=== PATIENT | male | born 1965 | race Caucasian/White ===

== ENCOUNTER 2021-01-24 06:56 | Outpatient (REF) | payer BC, SELFPAY ==
[2021-01-24 11:14] LABS: MANUAL DIFF FLAG NO
[2021-01-24 11:30] LABS: Basophils Percent Auto 0.5 % (0-2); Eosinophils Percent Auto 1.1 % (0-4); Hematocrit 40.9 % (42-52); Hemoglobin 13.8 g/dl (14.0-18.0); Imm Gran Abs Auto 0.01 X10*3/uL (0.00-0.03); Imm Gran Pct Auto 0.3 % (0.0-0.4); Lymphocytes Absolute Auto 0.9 X10*3/uL (1.2-4.9); Lymphocytes Percent Auto 23.2 % (20-40); Mean Corpuscular HGB Conc 33.7 g/dl (31.0-36.0); Mean Corpuscular Hemoglobin 33.3 pg (27.0-33.0); Mean Corpuscular Volume 98.8 fL (80-98); Mean Platelet Volume 10.3 fL (9.4-12.4); Monocytes Absolute Auto 0.3 X10*3/uL (0.1-1.2); Monocytes Percent Auto 8.4 % (2-11); Neutrophils Absolute Auto 2.5 X10*3/uL (2.0-8.3); Neutrophils Percent Auto 66.5 % (45-73); Platelet Count 200 X10*3/uL (160-400); Red Blood Count 4.14 X10*6/uL (4.60-5.80); Red Cell Distribution Width 12.9 % (11.0-16.0); White Blood Count 3.7 X10*3/uL (4.8-10.8)
[2021-01-24 11:57] LABS: Alanine Aminotransferase 20 U/L (0-40); Albumin Level 4.1 g/dL (3.5-5.0); Alkaline Phosphatase 74 U/L (39-117); Anion Gap 11 (12-20); Aspartate Amino Transferase 21 U/L (5-37); Bilirubin Total 0.5 mg/dL (0.0-1.0); Blood Urea Nitrogen 19 mg/dL (9-16); Calcium 9.1 mg/dL (8.4-10.2); Carbon Dioxide 28 mmol/L (22-29); Chloride 106 mmol/L (96-108); Cholesterol 204 mg/dL; Estimated Glomerular Filt Rate 59; Glucose Fasting 83 mg/dL (60-99); HDL Cholesterol 39 mg/dL; LDL Cholesterol Calculated 126 mg/dl; Potassium 4.6 mmol/L (3.3-5.1); Sodium 140 mmol/L (135-145); Total Protein 6.9 g/dL (6.5-8.0); Triglycerides 197 mg/dL
[2021-01-24 12:04] LABS: Prostate Specific Antigen Scr 0.44 ng/mL (<0.05-4.0); TSH reflex Free T4 1.39 uIU/mL (0.32-4.0)
== END 2021-01-24 06:57 | disposition home or self-care (01) ==
LOC: HO.HMGCLDS 06:56
PROVIDERS: Hospitalist; PCP Nurse Practitioner Family; Visit Provider Nurse Practitioner Family
DX: Z00.00 Encounter for general adult medical examination without abnormal findings (principal); I10 Essential (primary) hypertension; Z12.5 Encounter for screening for malignant neoplasm of prostate
CPT/HCPCS: 36415; 80053; 80061; 84153; 84443; 85025

== ENCOUNTER 2021-03-21 | Outpatient (REF) | payer BC, SELFPAY ==
[2021-03-22 12:43] LABS: FIT Int Ctl YES; FIT1 NEGATIVE (NEGATIVE); FIT2 NEGATIVE (NEGATIVE)
== END 2021-03-21 00:01 | disposition home or self-care (01) ==
LOC: HO.LNP
PROVIDERS: Visit Provider Nurse Practitioner Family
DX: D64.9 Anemia, unspecified (principal)
CPT/HCPCS: 82274

== ENCOUNTER 2021-03-22 06:58 | Outpatient (REF) | payer BC, SELFPAY ==
[2021-03-22 11:40] LABS: MANUAL DIFF FLAG NO
[2021-03-22 11:58] LABS: Alanine Aminotransferase 20 U/L (0-40); Albumin Level 4.3 g/dL (3.5-5.0); Alkaline Phosphatase 76 U/L (39-117); Anion Gap 12 (12-20); Aspartate Amino Transferase 21 U/L (5-37); Basophils Percent Auto 0.3 % (0-2); Bilirubin Total 0.5 mg/dL (0.0-1.0); Blood Urea Nitrogen 16 mg/dL (9-16); Calcium 9.5 mg/dL (8.4-10.2); Carbon Dioxide 29 mmol/L (22-29); Chloride 104 mmol/L (96-108); Cholesterol 194 mg/dL; Eosinophils Percent Auto 1.2 % (0-4); Estimated Glomerular Filt Rate 56; Glucose Fasting 128 mg/dL (60-99); HDL Cholesterol 35 mg/dL; Hematocrit 43.3 % (42-52); Hemoglobin 14.6 g/dl (14.0-18.0); Imm Gran Abs Auto 0.01 X10*3/uL (0.00-0.03); Imm Gran Pct Auto 0.3 % (0.0-0.4); LDL Cholesterol Calculated 114 mg/dl; Lymphocytes Absolute Auto 0.9 X10*3/uL (1.2-4.9); Lymphocytes Percent Auto 26.9 % (20-40); Mean Corpuscular HGB Conc 33.7 g/dl (31.0-36.0); Mean Corpuscular Hemoglobin 33.3 pg (27.0-33.0); Mean Corpuscular Volume 98.6 fL (80-98); Mean Platelet Volume 10.4 fL (9.4-12.4); Monocytes Absolute Auto 0.2 X10*3/uL (0.1-1.2); Monocytes Percent Auto 6.4 % (2-11); Neutrophils Absolute Auto 2.1 X10*3/uL (2.0-8.3); Neutrophils Percent Auto 64.9 % (45-73); Platelet Count 209 X10*3/uL (160-400); Potassium 4.5 mmol/L (3.3-5.1); Red Blood Count 4.39 X10*6/uL (4.60-5.80); Red Cell Distribution Width 12.7 % (11.0-16.0); Sodium 140 mmol/L (135-145); Total Protein 7.3 g/dL (6.5-8.0); Triglycerides 226 mg/dL; White Blood Count 3.3 X10*3/uL (4.8-10.8)
[2021-03-22 12:22] LABS: Ferritin 131 ng/mL (20-250)
[2021-03-22 12:27] LABS: Folate 4.8 ng/mL (> or = 4.0); Vitamin B12 325 pg/mL (200-900)
== END 2021-03-22 06:59 | disposition home or self-care (01) ==
LOC: HO.HMGCLDS 06:58
PROVIDERS: PCP Nurse Practitioner Family; Visit Provider Hospitalist
DX: D64.9 Anemia, unspecified (principal); I10 Essential (primary) hypertension
CPT/HCPCS: 36415; 80053; 80061; 82274; 82607; 82728; 82746; 85025

== ENCOUNTER 2021-04-08 09:48 | Outpatient (REF) | payer BC, SELFPAY ==
[2021-04-08 11:31] LABS: MANUAL DIFF FLAG NO
[2021-04-08 11:36] LABS: Basophils Percent Auto 0.6 % (0-2); Eosinophils Absolute Auto 0.1 X10*3/uL (0.0-0.4); Eosinophils Percent Auto 1.9 % (0-4); Hematocrit 40.4 % (42-52); Hemoglobin 13.8 g/dl (14.0-18.0); Imm Gran Abs Auto 0.01 X10*3/uL (0.00-0.03); Imm Gran Pct Auto 0.3 % (0.0-0.4); Lymphocytes Absolute Auto 1.2 X10*3/uL (1.2-4.9); Lymphocytes Percent Auto 32.8 % (20-40); Mean Corpuscular HGB Conc 34.2 g/dl (31.0-36.0); Mean Corpuscular Hemoglobin 33.2 pg (27.0-33.0); Mean Corpuscular Volume 97.1 fL (80-98); Mean Platelet Volume 10.3 fL (9.4-12.4); Monocytes Absolute Auto 0.3 X10*3/uL (0.1-1.2); Monocytes Percent Auto 8.3 % (2-11); Neutrophils Percent Auto 56.1 % (45-73); Platelet Count 226 X10*3/uL (160-400); Red Blood Count 4.16 X10*6/uL (4.60-5.80); Red Cell Distribution Width 12.4 % (11.0-16.0); White Blood Count 3.6 X10*3/uL (4.8-10.8)
[2021-04-08 12:11] LABS: Prostate Specific Antigen Scr 0.39 ng/mL (<0.05-4.0)
== END 2021-04-08 09:49 | disposition home or self-care (01) ==
LOC: HO.HMGCLDS 09:48
PROVIDERS: PCP Nurse Practitioner Family; Visit Provider Nurse Practitioner Family
DX: Z12.5 Encounter for screening for malignant neoplasm of prostate (principal); D72.819 Decreased white blood cell count, unspecified
CPT/HCPCS: 36415; 84153; 85025

== ENCOUNTER 2021-04-12 06:59 | Outpatient (REF) | payer BC, SELFPAY ==
[2021-04-12 11:25] LABS: MANUAL DIFF FLAG NO
[2021-04-12 11:31] LABS: Basophils Percent Auto 0.2 % (0-2); Eosinophils Absolute Auto 0.1 X10*3/uL (0.0-0.4); Hematocrit 40.9 % (42-52); Hemoglobin 13.8 g/dl (14.0-18.0); Imm Gran Abs Auto 0.01 X10*3/uL (0.00-0.03); Imm Gran Pct Auto 0.2 % (0.0-0.4); Immature Retic Fraction 13.1 % (2.3-13.4); Lymphocytes Percent Auto 24.6 % (20-40); Mean Corpuscular HGB Conc 33.7 g/dl (31.0-36.0); Mean Corpuscular Hemoglobin 33.6 pg (27.0-33.0); Mean Corpuscular Volume 99.5 fL (80-98); Mean Platelet Volume 10.5 fL (9.4-12.4); Monocytes Absolute Auto 0.4 X10*3/uL (0.1-1.2); Monocytes Percent Auto 8.9 % (2-11); Neutrophils Absolute Auto 2.6 X10*3/uL (2.0-8.3); Neutrophils Percent Auto 64.1 % (45-73); Platelet Count 213 X10*3/uL (160-400); Red Blood Count 4.11 X10*6/uL (4.60-5.80); Red Cell Distribution Width 12.8 % (11.0-16.0); Retic HGB Equivalent 37.9 pg (30.0-35.0); Reticulocyte Percent 2.2 % (0.5-1.8); White Blood Count 4.1 X10*3/uL (4.8-10.8)
[2021-04-12 11:44] LABS: Iron 92 mcg/dL (45-160); Percent Iron Saturation 27 % (15-50); Total Iron Binding Capacity 345 mcg/dL (228-428); Unsaturated Iron Binding 253 ug/dL
[2021-04-12 11:58] LABS: Ferritin 102 ng/mL (20-250)
== END 2021-04-12 07:00 | disposition home or self-care (01) ==
LOC: HO.HMGCLDS 06:59
PROVIDERS: PCP Nurse Practitioner Family; Visit Provider Nurse Practitioner Family
DX: D64.9 Anemia, unspecified (principal); D72.819 Decreased white blood cell count, unspecified
CPT/HCPCS: 36415; 82728; 83540; 85025; 85045

== ENCOUNTER 2021-04-14 10:11 | Outpatient (REF) | payer BC, SELFPAY ==
[2021-04-14 12:21] LABS: Vitamin B12 439 pg/mL (200-900)
[2021-04-19 11:16] LABS: Methylmalonic Acid 210 nmol/L (87-318)
[2021-04-19 19:47] LABS: Intrinsic Factor Antibodies Negative (Negative)
[2021-04-20 11:22] LABS: Parietal Cell Antibody <=20.0 Unit (<=20.0)
== END 2021-04-14 10:12 | disposition home or self-care (01) ==
LOC: HO.HMGCLDS 10:11
PROVIDERS: PCP Nurse Practitioner Family; Visit Provider Nurse Practitioner Family
DX: D64.9 Anemia, unspecified (principal)
CPT/HCPCS: 36415; 82607; 83516; 83921; 86340

== ENCOUNTER 2021-06-23 06:53 | Outpatient (REF) | payer BC, SELFPAY ==
[2021-06-23 11:52] LABS: Cholesterol 219 mg/dL; HDL Cholesterol 36 mg/dL; LDL Cholesterol Calculated 129 mg/dl; Triglycerides 272 mg/dL
== END 2021-06-23 06:54 | disposition home or self-care (01) ==
LOC: HO.HMGCLDS 06:53
PROVIDERS: PCP Nurse Practitioner Family; Visit Provider Nurse Practitioner Family
DX: E78.1 Pure hyperglyceridemia (principal)
CPT/HCPCS: 36415; 80061

== ENCOUNTER 2021-08-23 08:48 | Outpatient (REF) | payer BC, SELFPAY | END 2021-08-23 08:49 | disposition home or self-care (01) | LOC: HO.HMGCLDS 08:48 | PROVIDERS: PCP Nurse Practitioner Family; Visit Provider Internal Medicine | DX: Z20.822 Contact with and (suspected) exposure to COVID-19 (principal) | CPT/HCPCS: C9803; U0003; U0005 ==

== ENCOUNTER → 2021-09-09 08:17 | Outpatient (BNVA) | payer BC, SELFPAY | PROVIDERS: PCP Nurse Practitioner Family; Referring Provider Nurse Practitioner Family; Visit Provider Nurse Practitioner Family ==

== ENCOUNTER 2021-10-07 07:28 | Outpatient (REF) | payer BC, SELFPAY ==
[2021-10-07 12:17] LABS: Cholesterol 146 mg/dL; HDL Cholesterol 37 mg/dL; LDL Cholesterol Calculated 76 mg/dl; Triglycerides 165 mg/dL
[2021-10-07 12:24] LABS: Prostate Specific Antigen 0.44 ng/mL (<0.05-4.0)
[2021-10-07 12:36] LABS: TSH reflex Free T4 1.51 uIU/mL (0.32-4.0)
[2021-10-07 12:45] LABS: Folate 4.5 ng/mL (> or = 4.0); Vitamin B12 395 pg/mL (200-900)
[2021-10-08 12:57] LABS: Transglutaminase Ab IgG <1.0 U/mL; Transglutaminase IgA <1.0 U/mL
[2021-10-17 05:12] LABS: Vitamin D 25-OH, D2 <4 ng/mL; Vitamin D 25-OH, D3 26 ng/mL; Vitamin D 25-OH, Total 26 ng/mL (30-100)
== END 2021-10-07 07:29 | disposition home or self-care (01) ==
LOC: HO.HMGCLDS 07:28
PROVIDERS: Absent Provider Nurse Practitioner Family; PCP Nurse Practitioner Family; Visit Provider Nurse Practitioner Family
DX: E78.1 Pure hyperglyceridemia (principal); E78.5 Hyperlipidemia, unspecified; E55.9 Vitamin D deficiency, unspecified; R14.0 Abdominal distension (gaseous); R19.7 Diarrhea, unspecified; R10.11 Right upper quadrant pain; Z12.5 Encounter for screening for malignant neoplasm of prostate
CPT/HCPCS: 36415; 80061; 82306; 82607; 82746; 84153; 84443; 86364

== ENCOUNTER 2021-10-13 10:36 | Outpatient (REF) | payer BC, SELFPAY | END 2021-10-13 10:37 | disposition home or self-care (01) | LOC: HO.HMGCLNP 10:36 | PROVIDERS: Visit Provider Nurse Practitioner Family | DX: K21.9 Gastro-esophageal reflux disease without esophagitis (principal) | CPT/HCPCS: 87338 ==

== ENCOUNTER 2022-01-05 11:16 | Day surgery (SDC) | payer BC, SELFPAY ==
[2021-12-30 11:38] VITALS: BMI 29.8
--- NOTE | 2022-01-04 09:15 | HO.ANESPROP2 ---
HPI - Anesthesia Eval Consult details Narrative: 56yo M Upper Endoscopy PMFSH Active Problems Active Problems: All Active Problems (Updated 12/30/21 @ 11:21 by Joanne Elliott RN) Essential hypertension (Acute) Physical exam (Acute) Screening PSA (prostate specific antigen) (Acute) Anemia (Acute) Leukopenia (Acute) High triglycerides (Acute) Dyslipidemia (Acute) Epigastric abdominal pain (Acute) Constipation (Acute) Tinea (Acute) Past Medical History Medical History Anxiety Dyslipidemia GERD (gastroesophageal reflux disease) History of depression History of pneumonia HTN (hypertension) Family History Family History Father Lung cancer Maternal Aunt Breast cancer Maternal Aunt Breast cancer Mother CHF (congestive heart failure) Brother Heart attack HTN (hypertension) Maternal Grandfather Diabetes Brother HTN (hypertension) Surgical History Surgical History History of elbow surgery Hx of appendectomy Hx of cholecystectomy Hx of colonoscopy Hx of inguinal hernia repair Social History Social History Housing: House Are you a primary career based intervention coordinator to a significant other at home: No Do you presently have visiting nurse or other home services: No Alcohol intake: current Alcohol intake frequency: a few times a week Alcohol type: hard liquor Patient Tobacco Use Status: Current someday Tobacco user Tobacco use type: Cigarette e-Cigarette/Vaping Use: Never Used Second Hand Smoke Exposure: No service: Yes Current occupational status: employed Current occupation: [employer] Current occupational exposures/hazards: Yes Cognitive needs: No Hearing needs: No Vision needs: No Meds Allergies Allergy/AdvReac Type Severity Reaction Status Date / Time No Known Allergies Allergy Verified 01/16/22 11:46 [No Known Allergies*] Exam Exam Date and Time: January 04, 2022 0915 Height,Weight and Vital Signs: Height 6 ft Weight 99.79 kg Assessment and Plan Assessment Anesthesia Assessment: Chart Reviewed
[2022-01-05 11:51] VITALS: BP 123/76; PULSE 64; RESP 16; TEMP 36.7; O2SAT 99
[2022-01-05] MEDS: Lactated Ringers 1,000 ML 100 ML IVCONT (11:55)
--- NOTE | 2022-01-05 11:57 | P.HPSUR_ITS ---
Pre-Procedural Eval Section A Date of Service: 01/05/22 Section B Chief Complaint: epigastric pain Details of Present Illness: early satiety Relevant Family History (Specify if Yes): No Relevant Social History: Tobacco Use Present Medications: see Short Stay Collaborative assessment Medical History: Significant History (Anxiety Dyslipidemia GERD (gastroesophageal reflux disease) History of depression History of pneumonia HTN (hypertension)) History of Previous Operations: Relevant previous surgery/procedure and date(s) (History of elbow surgery Hx of appendectomy Hx of cholecystectomy Hx of colonoscopy Hx of inguinal hernia repair) Allergies: Allergies Allergy/AdvReac Type Severity Reaction Status Date / Time No Known Allergies Allergy Verified 12/30/21 11:05 [No Known Allergies*] Review of Systems Sugical H&P ROS: Negative: Constitution, Cardiovascular, Respiratory, Neurological, Psychiatric, Hem-Onc, Allergic/Immunologic, Gastrointestinal, Genitourinary, Musculoskeletal, Integumentary, Endocrine and Eyes/Ears/No se/Throat Exam Surgical H&P Exam: Normal: HEENT, Normal: Heart, Normal: Lungs, Normal: Extremities, Normal: Skin and Normal: Neurological and Not Evaluated: Abdomen (tender epigastrium) Plan Diagnosis/Plan: Unchanged I have reviewed the history and physical and performed a pertinent physical examination on my patient. No changes have occurred unless specified.
--- NOTE | 2022-01-05 11:58 | PM.OP ---
Brief Operative Note Date of Service: 01/05/22 Pre-op diagnosis: epigastric pain, early satiety Post-op diagnosis: same Procedure: see op note Surgeon: Geraldine Cheek MD Anesthesia: MAC Was an Surface Supply Breathing Apparatus used for this Procedure?: No Estimated blood loss (mL): 0 Condition: stable Disposition: PACU
--- NOTE | 2022-01-05 11:58 | W.PM.OPN ---
Operative Note Operative Note Date of Service: 01/05/22 Narrative: Procedure Description: EGD Indication: epigastric pain and early satiety Anesthesia: MAC FLEXIBLE TRANSORAL UPPER GASTROINTESTINAL ENDOSCOPY UPPER ENDOSCOPY Consent: Indications for the procedure and potential complications of bleeding, perforation, reaction to medications and missed diagnosis were discussed with the patient and informed consent was obtained. Instrument: Olympus GIF H 190 J mid size upper endoscope Monitoring: Vital signs and clinical assessment, continuous EKG monitoring, Pulse oximetry, Carbon Dioxide monitoring and blood pressure monitoring were done throughout the procedure. Procedure: The patient was placed in the left lateral decubitis position and pre-procedure medications were administered and a bite block was placed. The endoscope was inserted into the mouth and advanced under direct vision to the third part of duodenum. A careful inspection was made as the upper endoscope was withdrawn including a retroflexed examination of the proximal stomach; Findings and interventions are described below. Findings: Larynx:normal Esophagus: GE junction at 40 cm, diaphragm hiatus at 40 cm, few short tongues of salmon pink mucosa consistent with short segment barretts, bx taken Stomach: Patchy gastric erythema with streaks in the antrum and distal body . Biopsies were obtained. Grade 2 flap valve on retroflexed examination of the cardia. The pylorus was stretched with balloon with resistance felt at 19.5 mm, no tears seen. Duodenum: Normal bulb and descending duodenum, bx taken Intervention: Biopsies as noted above, balloon dilation of pylorus Impression/Findings: gastritis short segment barretts PLAN: optimize PPi treatment if bx neg and ongoing sx then GES, abdo US, stool H pylori antigen was negative
--- NOTE | 2022-01-05 12:18 | P.CONAN_ITS ---
REPLACED BY [facility] Active Problems Active Problems: All Active Problems (Updated 12/30/21 @ 11:21 by Joanne Elliott RN) Essential hypertension (Acute) Physical exam (Acute) Screening PSA (prostate specific antigen) (Acute) Anemia (Acute) Leukopenia (Acute) High triglycerides (Acute) Dyslipidemia (Acute) Epigastric abdominal pain (Acute) Constipation (Acute) Tinea (Acute) Past Medical History Medical History Anxiety Dyslipidemia GERD (gastroesophageal reflux disease) History of depression History of pneumonia HTN (hypertension) Family History Family History Father Lung cancer Maternal Aunt Breast cancer Maternal Aunt Breast cancer Mother CHF (congestive heart failure) Brother Heart attack HTN (hypertension) Maternal Grandfather Diabetes Brother HTN (hypertension) Family history of problems with anesthesia: No Surgical History Surgical History History of elbow surgery Hx of appendectomy Hx of cholecystectomy Hx of colonoscopy Hx of inguinal hernia repair History of Problems with Anesthesia: No Social History Social History Are you a primary animal care technician to a significant other at home: No Do you presently have visiting nurse or other home services: No Alcohol intake: current Alcohol intake frequency: a few times a week Alcohol type: hard liquor Patient Tobacco Use Status: Current someday Tobacco user Tobacco use type: Cigarette e-Cigarette/Vaping Use: Never Used Are you DNR?: No Advance Directives: No Advance Directives Information Provided: Yes Advance Directives on File: No Recently lost weight without trying: No Eating poorly because of decreased appetite: No Nutrition Risks: No Nutritional Risk Meds Allergies Allergy/AdvReac Type Severity Reaction Status Date / Time No Known Allergies Allergy Verified 12/30/21 11:05 [No Known Allergies*] Active Medications: Current Medications Lactated Ringer's (Lr) 1,000 mls @ 100 mls/hr IVCONT .Q10H MICHELLE Last Admin: 01/05/22 11:55 Dose: 100 mls/hr Documented by: Exam Exam Date and Time: January 05, 2022 1218 Height,Weight and Vital Signs: Height 6 ft Weight 99.79 kg Last Vital Signs Temp 98.0 F 01/05/22 11:51 Pulse 64 01/05/22 11:51 Resp 16 01/05/22 11:51 BP 123/76 01/05/22 11:51 Pulse Ox 99 01/05/22 11:51 Airway Mallampati Class: III TM Dist: >3cm Neck ROM: Full Assessment and Plan Assessment Anesthesia Assessment: Anesthesia Plan Discussed and Chart Reviewed Final Anesthetic Review Family History of Problems with Anesthesia: No History of Problems with Anesthesia: No NPO: Yes ASA Class: III Final Preanesthetic Review: No Changes in Pt Med Stat, Meds/Allgs Chart Reviewed, Consent Obtained/Reviewed and Anes Risks/Benef Reviewed Patient Risk: Intermediate Procedure Risk: Low Anesthetic Plan Anesthetic Plan: MAC: Disposition: Standard PACU
[2022-01-05 12:29] VITALS: BP 104/78; PULSE 62; RESP 16; TEMP 36.2; O2SAT 97
[2022-01-05 12:50] VITALS: BP 115/73; PULSE 68; RESP 18; TEMP 36.6; O2SAT 98
== END 2022-01-05 13:47 | disposition home or self-care (01) ==
PROVIDERS: PCP Nurse Practitioner Family; Visit Provider Internal Medicine Gastroenterology
PROC: 0DJ08ZZ Inspection of Upper Intestinal Tract, Via Natural or Artificial Opening Endoscopic (ICD-10-PCS; CPT 43235; principal; 2022-01-05 12:40)
DX: R10.13 Epigastric pain (principal); K29.50 Unspecified chronic gastritis without bleeding; K22.70 Barrett's esophagus without dysplasia; K44.9 Diaphragmatic hernia without obstruction or gangrene
CPT/HCPCS: 43245; 43239; 88305; 88342; C1726

== ENCOUNTER → 2022-01-23 14:51 | Outpatient (BNVA) | payer BC, SELFPAY | PROVIDERS: PCP Nurse Practitioner Family; Referring Provider Nurse Practitioner Family; Visit Provider Nurse Practitioner Family | DX: Z13.89 Encounter for screening for other disorder (principal) ==

== ENCOUNTER 2022-04-19 07:00 | Outpatient (REF) | payer BC, SELFPAY ==
[2022-04-19 08:34] LABS: Appearance Urine CLEAR; Color Urine YELLOW; Glucose Urine UA NEG (NEG); Leukocyte Esterase Urine NEG (NEG); Nitrite Urine NEG (NEG); PH 6.5 (5.0-8.0); Specific Gravity - Urine 1.015 (1.005-1.025); UACC Culture Trigger NO; Urine Blood TRACE (NEG); Urine Ketones NEG (NEG); Urine Protein NEG (NEG-TRACE)
[2022-04-19 08:46] LABS: Mucus Urine TRACE /LPF; Squamous Epithelial Cell Urine TRACE /LPF; WBC Urine 0-2 /HPF (0-4)
[2022-04-19 08:48] LABS: Alanine Aminotransferase 19 U/L (0-40); Albumin Level 4.3 g/dL (3.5-5.0); Alkaline Phosphatase 72 U/L (39-117); Anion Gap 11 (12-20); Aspartate Amino Transferase 22 U/L (5-37); Bilirubin Total 0.6 mg/dL (0.0-1.0); Blood Urea Nitrogen 17 mg/dL (9-16); Carbon Dioxide 28 mmol/L (22-29); Chloride 106 mmol/L (96-108); Cholesterol 165 mg/dL; Estimated Glomerular Filt Rate 58; Glucose Fasting 102 mg/dL (60-99); HDL Cholesterol 39 mg/dL; LDL Cholesterol Calculated 94 mg/dl; Potassium 4.8 mmol/L (3.3-5.1); Sodium 140 mmol/L (135-145); Total Protein 7.2 g/dL (6.5-8.0); Triglycerides 161 mg/dL
== END 2022-04-19 07:01 | disposition home or self-care (01) ==
LOC: HO.HMGCLDS 07:00
PROVIDERS: Visit Provider Nurse Practitioner Family
DX: Z00.00 Encounter for general adult medical examination without abnormal findings (principal)
CPT/HCPCS: 36415; 80053; 80061; 81001; 84443

== ENCOUNTER 2022-08-09 06:57 | Outpatient (REF) | payer BC, SELFPAY ==
[2022-08-09 11:18] LABS: MANUAL DIFF FLAG NO
[2022-08-09 11:21] LABS: Appearance Urine Clear; Color Urine Yellow; Glucose Urine UA Negative (Negative); Leukocyte Esterase Urine Negative (Negative); Nitrite Urine Negative (Negative); Specific Gravity - Urine 1.015 (1.005-1.025); UMIC TRIGGER UACC YES; Urine Blood Trace (Negative); Urine Ketones Negative (Negative); Urine Protein Negative (Neg-Trace)
[2022-08-09 11:26] LABS: Bacteria Urine None Seen (None Seen); Hyaline Casts Urine 0-2 /LPF (0-2); Squamous Epithelial Cell Urine 0-2 /HPF (0-2); WBC Urine 0-5 /HPF (0-5)
[2022-08-09 11:33] LABS: Basophils Percent Auto 0.5 % (0-2); Eosinophils Absolute Auto 0.1 X10*3/uL (0.0-0.4); Eosinophils Percent Auto 1.9 % (0-4); Hematocrit 41.3 % (42.0-52.0); Hemoglobin 13.7 g/dl (14.0-18.0); Imm Gran Abs Auto 0.01 X10*3/uL (0.00-0.03); Imm Gran Pct Auto 0.2 % (0.0-0.4); Lymphocytes Absolute Auto 0.6 X10*3/uL (1.2-4.9); Lymphocytes Percent Auto 15.1 % (20-40); Mean Corpuscular HGB Conc 33.2 g/dl (31.0-36.0); Mean Corpuscular Volume 96.5 fL (80.0-98.0); Mean Platelet Volume 10.4 fL (9.4-12.4); Monocytes Absolute Auto 0.4 X10*3/uL (0.1-1.2); Monocytes Percent Auto 10.3 % (2-11); Platelet Count 224 X10*3/uL (160-400); Red Blood Count 4.28 X10*6/uL (4.60-5.80); Red Cell Distribution Width 12.9 % (11.0-16.0); White Blood Count 4.2 X10*3/uL (4.8-10.8)
[2022-08-09 12:13] LABS: Alanine Aminotransferase 27 U/L (0-40); Albumin Level 4.4 g/dL (3.5-5.0); Alkaline Phosphatase 71 U/L (39-117); Anion Gap 13 (12-20); Aspartate Amino Transferase 25 U/L (5-37); Bilirubin Total 0.6 mg/dL (0.0-1.0); Blood Urea Nitrogen 14 mg/dL (9-16); Carbon Dioxide 28 mmol/L (22-29); Chloride 104 mmol/L (96-108); Cholesterol 194 mg/dL; Estimated Glomerular Filt Rate 59; Glucose Fasting 103 mg/dL (60-99); HDL Cholesterol 44 mg/dL; LDL Cholesterol Calculated 117 mg/dl; Potassium 4.8 mmol/L (3.3-5.1); Prostate Specific Antigen 0.29 ng/mL (<0.05-4.0); Sodium 140 mmol/L (135-145); TSH reflex Free T4 1.36 uIU/mL (0.32-4.0); Total Protein 7.3 g/dL (6.5-8.0); Triglycerides 165 mg/dL
== END 2022-08-09 06:58 | disposition home or self-care (01) ==
LOC: HO.HMGCLDS 06:57
PROVIDERS: PCP Nurse Practitioner Family; Visit Provider Nurse Practitioner Family
DX: Z12.5 Encounter for screening for malignant neoplasm of prostate (principal); R39.15 Urgency of urination; E78.5 Hyperlipidemia, unspecified
CPT/HCPCS: 36415; 80053; 80061; 81001; 84153; 84443; 85025

== ENCOUNTER 2022-08-15 12:47 | Outpatient (REF) | payer BC, SELFPAY ==
--- NOTE | ~2022-08-15 | US_ITS ---
EXAMINATION: US PELVIS LIMITED (BLADDER) CLINICAL INFORMATION: Urgency of urination. COMPARISON: None TECHNIQUE: Real-time imaging of the bladder. FINDINGS: BLADDER: Well distended and normal. No stone, mass or wall thickening. Ureteral jets not assessed. Prevoid bladder volume is 449 mL. Postvoid bladder volume is 4.05 mL. US/US bladder IMPRESSION: Unremarkable exam.
== END 2022-08-15 12:48 | disposition home or self-care (01) ==
LOC: HO.HMGCX 12:47
PROVIDERS: PCP Nurse Practitioner Family; Visit Provider Nurse Practitioner Family
DX: R39.15 Urgency of urination (principal)
CPT/HCPCS: 76857

== ENCOUNTER 2022-12-07 10:55 | Outpatient (REF) | payer BC, SELFPAY ==
[2022-12-07 16:19] LABS: Urine Cytology See Pathology rpt
== END 2022-12-07 10:56 | disposition home or self-care (01) ==
LOC: HO.LAB 10:55
PROVIDERS: PCP Nurse Practitioner Family; Visit Provider Nurse Practitioner Family
DX: R31.29 Other microscopic hematuria (principal); N41.9 Inflammatory disease of prostate, unspecified
CPT/HCPCS: 51798; 88112

== ENCOUNTER → 2022-12-22 09:25 | Outpatient (BNVA) | payer BC, SELFPAY | PROVIDERS: PCP Nurse Practitioner Family; Visit Provider Nurse Practitioner Family | DX: Z13.89 Encounter for screening for other disorder (principal) ==

== ENCOUNTER 2023-01-22 07:02 | Outpatient (REF) | payer BC, SELFPAY ==
[2023-01-22 11:29] LABS: MANUAL DIFF FLAG NO
[2023-01-22 11:34] LABS: Basophils Percent Auto 0.4 % (0-2); Eosinophils Absolute Auto 0.1 X10*3/uL (0.0-0.4); Eosinophils Percent Auto 1.8 % (0-4); Hemoglobin 14.5 g/dl (14.0-18.0); Imm Gran Abs Auto 0.01 X10*3/uL (0.00-0.03); Imm Gran Pct Auto 0.2 % (0.0-0.4); Immature Retic Fraction 14.5 % (2.3-13.4); Lymphocytes Absolute Auto 1.4 X10*3/uL (1.2-4.9); Lymphocytes Percent Auto 31.6 % (20-40); Mean Corpuscular HGB Conc 33.7 g/dl (31.0-36.0); Mean Corpuscular Hemoglobin 32.9 pg (27.0-33.0); Mean Corpuscular Volume 97.5 fL (80.0-98.0); Mean Platelet Volume 10.6 fL (9.4-12.4); Monocytes Absolute Auto 0.4 X10*3/uL (0.1-1.2); Monocytes Percent Auto 8.4 % (2-11); Neutrophils Absolute Auto 2.6 x10*3/uL (2.0-8.3); Neutrophils Percent Auto 57.6 % (45-73); Platelet Count 206 X10*3/uL (160-400); Red Blood Count 4.41 X10*6/uL (4.60-5.80); Red Cell Distribution Width 13.2 % (11.0-16.0); Retic HGB Equivalent 38.3 pg (30.0-35.0); Reticulocyte Percent 1.8 % (0.5-1.8); White Blood Count 4.5 X10*3/uL (4.8-10.8)
== END 2023-01-22 07:03 | disposition home or self-care (01) ==
LOC: HO.HMGCLDS 07:02
PROVIDERS: PCP Nurse Practitioner Family; Visit Provider Nurse Practitioner Family
DX: D64.9 Anemia, unspecified (principal)
CPT/HCPCS: 36415; 85025; 85045

== ENCOUNTER → 2023-02-12 14:10 | Outpatient (BNVA) | payer BC, SELFPAY | PROVIDERS: PCP Nurse Practitioner Family; Visit Provider Nurse Practitioner Family ==

== ENCOUNTER → 2023-03-23 09:21 | Outpatient (BNVA) | payer BC, SELFPAY | PROVIDERS: Visit Provider Nurse Practitioner Family ==

== ENCOUNTER 2023-04-03 08:52 | Outpatient (REF) | payer BC, SELFPAY ==
--- NOTE | ~2023-04-03 | US_ITS ---
EXAMINATION: US RETROPERITONEAL COMPLETE (RENAL) CLINICAL INFORMATION: Inflammatory disease of prostate, unspecified dysuria. COMPARISON: US pelvis limited (bladder) 08/15/2022. TECHNIQUE: Real-time imaging of the kidneys and bladder. FINDINGS: RIGHT KIDNEY: 10.4 x 6.0 x 6.3 cm (SAG x AP x TRV). The kidney is normal in size, contour, and echogenicity. Renal cortical thickness is normal. No focal parenchymal lesions or hydronephrosis. Echogenic foci without twinkle artifact or shadowing may reflect vascular reflectors. No definite nephrolithiasis. LEFT KIDNEY: 11.7 x 5.7 x 6.0 cm (SAG x AP x TRV). The kidney is normal in size, contour, and echogenicity. Renal cortical thickness is normal. No focal parenchymal lesions or hydronephrosis. Echogenic foci without twinkle artifact or shadowing may reflect vascular reflectors. No definite nephrolithiasis. BLADDER: Well distended and normal. Bilateral ureteral jets are demonstrated. Prevoid bladder volume is 320 mL. Postvoid bladder volume is 10.9 mL. The prostate volume is 31.6 mL. US/US retroperitoneal comp IMPRESSION: Mild prostatomegaly.
== END 2023-04-03 08:53 | disposition home or self-care (01) ==
LOC: HO.HMGCX 08:52
PROVIDERS: PCP Nurse Practitioner Family; Visit Provider Nurse Practitioner Family
DX: N41.9 Inflammatory disease of prostate, unspecified (principal); R30.0 Dysuria
CPT/HCPCS: 76770

== ENCOUNTER 2023-04-17 08:18 | Outpatient (AMB) | payer BC, SELFPAY ==
--- NOTE | 2023-04-17 08:29 | MHC.OFFVIS ---
Intake Intake Visit Reasons: 1m/US(set) Intake Note: Patient is present for follow up prostatitis/ultrasound (imaging 04/03/23) Urology Medications: none Blood Thinner: none Executive Relations Specialist Required: No Accompanied by: Self / Same As Patient Allergies No Known Allergies [No Known Allergies*] Allergy (Verified 04/17/23 08:58) Medication List - Last Reconciled 04/17/23 by JACKIE Bahena-LA atorvastatin 10 mg PO BEDTIME 90 days cholecalciferol (vitamin D3) 50 mcg PO DAILY citalopram 20 mg PO DAILY ketoconazole 2% 1 appl topical BID 30 days lisinopril 5 mg PO DAILY omeprazole 40 mg PO DAILY sennosides (Natural Senna Laxative) 8.6 mg PO BEDTIME HPI HPI Comments History of Present Illness Details Zachary is a pleasant 58-year-old male patient of Dr. Owens. He has a past medical history of anxiety, dyslipidemia, GERD, depression, hypertension, and Chambers's esophagus. He is being seen today for follow-up regarding his urinary issues. Of note, patient was seen approximately 1 months ago at which time a prostate massage was performed and sent for further microgen and a retroparitoneal ultrasound was ordered for further assessment and evaluation. These results were reviewed with the patient today. Bilateral kidneys with no focal parenchymal lesions or hydronephrosis. Echogenic foci without winkle artifact or shadowing may reflect vascular reflectors. No definite nephrolithiasis. The bladder well distended and normal. Bilateral ureteral jets are demonstrated. Prevoid bladder volume is 320 mL. Postvoid bladder volume is 10.9 mL. The prostate volume is 31.6 mL. Unfortunately unable to review microgen testing of prostate massage that was performed at last office visit due to lab reporting no specimen received. In discussion with the patient today he reports significant improvement in pain at the tip of his penis when urinating, lower abdominal/bladder pressure, urinary frequency, and urinary urgency. He reports having taken prednisone from a house mate with good effect. He reports noting symptoms to be worse after consumption of alcohol as well as caffeine. Discussed at length bladder triggers/irritants. In office UA results reviewed with the patient. In review of patient's chart PSAs are as follows: 10/15--0.4 08/15--0.3. Patient otherwise denies any other issues or concerns at this time. [facility] Medical History Anxiety Chambers's esophagus determined by endoscopy Dyslipidemia GERD (gastroesophageal reflux disease) History of depression History of pneumonia HTN (hypertension) Surgical History History of elbow surgery Hx of appendectomy Hx of cholecystectomy Hx of colonoscopy Hx of inguinal hernia repair Family History Father Lung cancer Maternal Aunt Breast cancer Maternal Aunt Breast cancer Mother CHF (congestive heart failure) Brother Heart attack HTN (hypertension) Maternal Grandfather Diabetes Brother HTN (hypertension) Social History Housing: House Are you a primary home care music therapist to a significant other at home: No Do you presently have visiting nurse or other home services: No Alcohol intake: current Alcohol intake frequency: a few times a week Alcohol type: hard liquor Patient Tobacco Use Status: Former Tobacco user Tobacco use type: Cigarette e-Cigarette/Vaping Use: Never Used Second Hand Smoke Exposure: No service: Yes Current occupational status: employed Current occupation: [employer] Current occupational exposures/hazards: Yes Cognitive needs: No Hearing needs: No Vision needs: No Review of Systems Const Reports as per HPI Eyes Reports no additional complaints ENT Reports no additional complaints Card Reports as per HPI Resp Reports no additional complaints GI Reports as per HPI Reports as per HPI Musc Reports no additional complaints Neuro Reports no additional complaints Psych Reports as per HPI Endo Reports no additional complaints Jeremy/Lymph Reports no additional complaints Aller/Immun Reports no additional complaints Physical Exam Const General: cooperative, healthy appearing, comfortable, no acute distress, well developed, alert and awake Orientation/consciousness: patient oriented x3 Limitations: no limitations HEENT Head: Yes normal to inspection, Yes normocephalic and Yes atraumatic Ears: hearing grossly normal bilaterally Eyes General: appearance normal, both eyes and all related structures Neck Neck: Yes normal visual inspection and Yes trachea midline Chest Chest palpation & inspection: normal inspection of the chest Resp Effort & Inspection: normal respiratory effort and able to speak in complete sentences Cardio Rate: regular rate GI Inspection: Yes normal to inspection Rectal Exam - Male: Yes prostate abnormal (boggy prostate ) General: Yes no CVA tenderness Back/Spine/Pelvis Back: no CVA tenderness Skin General skin exam: no rashes or lesions noted Neuro General: patient oriented x3 Extrem General: Yes normal to inspection Psych Appearance: grossly normal and well kempt Mental Status: mental status grossly normal Speech and movement: Normal speech and movement present and Clear speech present Affect: normal affect Attitude: cooperative Thought process: Normal thought process present Thought content: Normal thought content present Insight: Good insight present (Psych) Judgement: Good judgement present (Psych) Results AMB Urinalysis, Automated UA Leukoctes 0 Marta/uL Last Edit by [employer] on 04/17/23 08:49 UA Nitrite Last Edit by [employer] on 04/17/23 08:49 UA Urobilinogen 0.2 mg/dL Last Edit by [employer] on 04/17/23 08:49 UA Protein 0 mg/dL Last Edit by [employer] on 04/17/23 08:49 UA pH 7.0 Last Edit by [employer] on 04/17/23 08:49 UA Blood 0 Jevon/uL Last Edit by [employer] on 04/17/23 08:49 UA Specific [place] 1.010 Last Edit by [employer] on 04/17/23 08:49 UA Ketone Last Edit by [employer] on 04/17/23 08:49 UA Bilirubin 0 mg/dL Last Edit by [employer] on 04/17/23 08:49 UA Glucose 0 mg/dL Last Edit by [employer] on 04/17/23 08:49 Results Reviewed Results Reviewed: Laboratory Last Values Urine pH (Auto) 7.0 04/17/23 08:39 Specific [place] (Auto) 1.010 04/17/23 08:39 Urine Protein (Auto) 0 mg/dL 04/17/23 08:39 Glucose (UA)(Auto) 0 mg/dL 04/17/23 08:39 Urine Blood (Auto) 0 Jevon/uL 04/17/23 08:39 Urine Bilirubin (Auto) 0 mg/dL 04/17/23 08:39 Urine Urobilinogen (Auto) 0.2 mg/dL 04/17/23 08:39 Leukocyte Esterase (Auto) 0 Marta/uL 04/17/23 08:39 Date of Service: 04/03/23 EXAMINATION: US RETROPERITONEAL COMPLETE (RENAL) FINDINGS: RIGHT KIDNEY: 10.4 x 6.0 x 6.3 cm (SAG x AP x TRV). The kidney is normal in size, contour, and echogenicity. Renal cortical thickness is normal. No focal parenchymal lesions or hydronephrosis.? Echogenic foci without twinkle artifact or shadowing may reflect vascular reflectors. No definite nephrolithiasis. LEFT KIDNEY: 11.7 x 5.7 x 6.0 cm (SAG x AP x TRV). The kidney is normal in size, contour, and echogenicity. Renal cortical thickness is normal. No focal parenchymal lesions or hydronephrosis. Echogenic foci without twinkle artifact or shadowing may reflect vascular reflectors. No definite nephrolithiasis. BLADDER: Well distended and normal. Bilateral ureteral jets are demonstrated. Prevoid bladder volume is 320 mL. Postvoid bladder volume is 10.9 mL. The prostate volume is 31.6 mL. IMPRESSION: ? Mild prostatomegaly. Assessment & Plan Assessment & Plan (1) BPH (benign prostatic hyperplasia): Code(s): N40.0 - Benign prostatic hyperplasia without lower urinary tract symptoms (2) Prostatitis: Code(s): N41.9 - Inflammatory disease of prostate, unspecified (3) Urinary frequency: Code(s): R35.0 - Frequency of micturition (4) Dysuria: Code(s): R30.0 - Dysuria Plan In office urinalysis results reviewed with the patient today; as noted above. Recent retroperitoneal ultrasound results reviewed with the patient today. Discussed near future in office cystoscopy is symptoms arise. Discussed at length importance of taking medications as prescribed Patient reporting significant improvements in lower urinary tract symptoms Discussed at length bladder triggers/irritants PSA in 4 months. Follow-up in 4 months with lab to be completed prior; or sooner with any issues, concerns, and or questions. Orders: Orders Prostate Specific Antigen 4 Months N40.0 - Benign prostatic hyperplasia without lower urinary tract symptoms AMB Urinalysis Automated Today R35.0 - Frequency of micturition, Z13.9 - Encounter for screening, unspecified Patient Instructions: The patient had an opportunity to ask questions regarding the treatment plan. All questions were answered. Physical exam, labs, and imaging were discussed and reviewed in detail. As well as risks, benefits, and discussion of treatment choices. No major barriers to understanding were identified. The patient expressed understanding and agreement with the above treatment plan. The patient was made aware they should contact our office by phone for worsening of their current condition, the appearance of new symptoms, or with any questions or concerns. Compliance is encouraged with any medications and follow up testing that is ordered. It is a privilege to be allowed the opportunity to participate in? your urological care.? Again, if you have any questions or concerns If you have any questions or concerns please do not hesitate to contact me. The office is [phone]. This note is constructed using voice recognition software. While every effort has been made to ensure accuracy turn down worker errors may have been included. Yours sincerely, SAM Bahena Coding Level of Care Code Est Pt Level 3 (78142) Diagnoses BPH (benign prostatic hyperplasia) N40.0 Prostatitis N41.9 Urinary frequency R35.0 Dysuria R30.0
== END 2023-04-17 09:13 | disposition home or self-care (01) ==
PROVIDERS: PCP Nurse Practitioner Family; Visit Provider Nurse Practitioner Family
DX: N40.0 Benign prostatic hyperplasia without lower urinary tract symptoms (principal); N41.9 Inflammatory disease of prostate, unspecified; R35.0 Frequency of micturition; R30.0 Dysuria
CPT/HCPCS: 99213

== ENCOUNTER → 2023-04-17 08:18 | Outpatient (BNVA) | payer BC, SELFPAY | PROVIDERS: PCP Nurse Practitioner Family; Visit Provider Nurse Practitioner Family ==

== ENCOUNTER 2023-07-30 06:55 | Outpatient (REF) | payer BC, SELFPAY ==
[2023-07-30 11:52] LABS: Prostate Specific Antigen 0.35 ng/mL (<0.05-4.0)
== END 2023-07-30 06:56 | disposition home or self-care (01) ==
LOC: HO.HMGCLDS 06:55
PROVIDERS: PCP Nurse Practitioner Family; Visit Provider Nurse Practitioner Family
DX: Z12.5 Encounter for screening for malignant neoplasm of prostate (principal); N40.0 Benign prostatic hyperplasia without lower urinary tract symptoms
CPT/HCPCS: 36415; 84153

== ENCOUNTER 2023-08-08 08:21 | Outpatient (REF) | payer BC, SELFPAY ==
[2023-08-08 17:05] LABS: Urine Cytology See Pathology rpt
== END 2023-08-08 08:22 | disposition home or self-care (01) ==
LOC: HO.LNP 08:21
PROVIDERS: PCP Nurse Practitioner Family; Visit Provider Nurse Practitioner Family
DX: R31.29 Other microscopic hematuria (principal); N41.1 Chronic prostatitis; R39.9 Unspecified symptoms and signs involving the genitourinary system
CPT/HCPCS: 51798; 81003; 88112

== ENCOUNTER 2023-08-08 08:21 | Outpatient (AMB) | payer BC, SELFPAY ==
--- NOTE | 2023-08-08 08:29 | MHC.OFFVIS ---
Intake Intake Visit Reasons: 4m/labs Intake Note: Patient is present for follow up prostatitis/lab/BPH (psa 0.35) Urology Medications: none Blood Thinner: none PVR: 0ml's Manager Procurement Required: No Accompanied by: Self / Same As Patient Allergies No Known Allergies [No Known Allergies*] Allergy (Verified 08/08/23 14:05) Medication List - Last Reconciled 08/08/23 by SAM Bahena atorvastatin 10 mg PO BEDTIME 90 days cholecalciferol (vitamin D3) 50 mcg PO DAILY citalopram 20 mg PO DAILY duloxetine 20 mg PO DAILY ketoconazole 2% 1 appl topical BID 30 days lisinopril 5 mg PO DAILY omeprazole 40 mg PO DAILY sennosides (Natural Senna Laxative) 8.6 mg PO BEDTIME HPI HPI Comments History of Present Illness Details Zachary is a pleasant 58-year-old male patient of Dr. Owens. He has a past medical history of anxiety, dyslipidemia, GERD, depression, hypertension, and Chambers's esophagus. He is being seen today for follow-up regarding his urinary issues. In discussion with the patient today he reports noting intermittent issues with lower urinary tract symptoms since his last visit here approximately 4 months ago. He has a history of prostatitis. He describes noting intermittent episodes of perineal pain with dysuria and pain at the tip of his penis at times. He currently denies any bothersome urinary issues or concerns. He reports symptoms very day today. Previous workup has included a prostate massage and urine sent for further microgen testing as well as a retroperitoneal ultrasound noting bilateral kidneys with no focal parenchymal lesions or hydronephrosis. Echogenic foci without winkle artifact or shadowing may reflect vascular reflectors. No definite nephrolithiasis. The bladder well distended and normal. Bilateral ureteral jets are demonstrated. Prevoid bladder volume is 320 mL. Postvoid bladder volume is 10.9 mL. The prostate volume is 31.6 mL. He reports noting symptoms to be worse after consumption of alcohol as well as caffeine. Discussed at length bladder triggers/irritants. In office UA results reviewed with the patient. PVR 0ml's. In review of patient's chart PSAs are as follows: 10/15--0.4 08/15--0.3. 08/16--0.4 Patient otherwise denies any other issues or concerns at this time. Discussed at length potential causes of lower urinary tract symptoms patient is experiencing. Discussed at length chronic prostatitis. Discussed near future in office cystoscopy if symptoms persist and/or worsen. Discussed and stressed the importance of drinking plenty of water daily. Discuss trial of finasteride in the setting of chronic prostatitis. [facility] Medical History Chambers's esophagus determined by endoscopy HTN (hypertension) Dyslipidemia History of pneumonia History of depression GERD (gastroesophageal reflux disease) Anxiety Surgical History Hx of colonoscopy History of elbow surgery Hx of appendectomy Hx of inguinal hernia repair Hx of cholecystectomy Family History Father Lung cancer Maternal Aunt Breast cancer Maternal Aunt Breast cancer Mother CHF (congestive heart failure) Brother Heart attack HTN (hypertension) Maternal Grandfather Diabetes Brother HTN (hypertension) Social History Housing: House Are you a primary healthcare administrative assistant to a significant other at home: No Do you presently have visiting nurse or other home services: No Alcohol intake: current Alcohol intake frequency: a few times a week Alcohol type: hard liquor Patient Tobacco Use Status: Former Tobacco user Tobacco use type: Cigarette e-Cigarette/Vaping Use: Never Used Second Hand Smoke Exposure: No service: Yes Current occupational status: employed Current occupation: [employer] Current occupational exposures/hazards: Yes Cognitive needs: No Hearing needs: No Vision needs: No Review of Systems Const Reports as per HPI Eyes Reports no additional complaints ENT Reports no additional complaints Card Reports as per HPI Resp Reports no additional complaints GI Reports as per HPI Reports as per HPI Musc Reports no additional complaints Neuro Reports no additional complaints Psych Reports as per HPI Endo Reports no additional complaints Jeremy/Lymph Reports no additional complaints Aller/Immun Reports no additional complaints Physical Exam Const General: cooperative, healthy appearing, comfortable, no acute distress, well developed, alert and awake Orientation/consciousness: patient oriented x3 Limitations: no limitations HEENT Head: Yes normal to inspection, Yes normocephalic and Yes atraumatic Ears: hearing grossly normal bilaterally Eyes General: appearance normal, both eyes and all related structures Neck Neck: Yes normal visual inspection and Yes trachea midline Chest Chest palpation & inspection: normal inspection of the chest Resp Effort & Inspection: normal respiratory effort and able to speak in complete sentences Cardio Rate: regular rate GI Inspection: Yes normal to inspection Rectal Exam - Male: Yes prostate abnormal (boggy prostate ) General: Yes no CVA tenderness Back/Spine/Pelvis Back: no CVA tenderness Skin General skin exam: no rashes or lesions noted Neuro General: patient oriented x3 Extrem General: Yes normal to inspection Psych Appearance: grossly normal and well kempt Mental Status: mental status grossly normal Speech and movement: Normal speech and movement present and Clear speech present Affect: normal affect Attitude: cooperative Thought process: Normal thought process present Thought content: Normal thought content present Insight: Good insight present (Psych) Judgement: Good judgement present (Psych) Office Procedures Post Void Residual Post Residual Void Post Void Residual (PVR): 0 [id number] Void Residual by ultrasound Results AMB Urinalysis, Automated UA Leukoctes 0 Marta/uL Last Edit by The 517 travel on 08/08/23 08:47 UA Nitrite Negative Last Edit by The 517 travel on 08/08/23 08:47 UA Urobilinogen 0.2 mg/dL Last Edit by The 517 travel on 08/08/23 08:47 UA Protein 15 mg/dL Last Edit by The 517 travel on 08/08/23 08:47 UA pH 7.0 Last Edit by The 517 travel on 08/08/23 08:47 UA Blood 10 Jevon/uL Last Edit by The 517 travel on 08/08/23 08:47 UA Specific [place] 1.015 Last Edit by The 517 travel on 08/08/23 08:47 UA Ketone Negative Last Edit by The 517 travel on 08/08/23 08:47 UA Bilirubin 0 mg/dL Last Edit by The 517 travel on 08/08/23 08:47 UA Glucose 0 mg/dL Last Edit by The 517 travel on 08/08/23 08:47 Results Reviewed Results Reviewed: Laboratory Last Values Urine pH (Auto) 7.0 08/08/23 08:30 Specific [place] (Auto) 1.015 08/08/23 08:30 Urine Protein (Auto) 15 mg/dL 08/08/23 08:30 Glucose (UA)(Auto) 0 mg/dL 08/08/23 08:30 Urine Ketones (Auto) Negative 08/08/23 08:30 Urine Blood (Auto) 10 Jevon/uL 08/08/23 08:30 Urine Nitrite (Auto) Negative 08/08/23 08:30 Urine Bilirubin (Auto) 0 mg/dL 08/08/23 08:30 Urine Urobilinogen (Auto) 0.2 mg/dL 08/08/23 08:30 Leukocyte Esterase (Auto) 0 Marta/uL 08/08/23 08:30 Assessment & Plan Assessment & Plan (1) Lower urinary tract symptoms: Code(s): R39.9 - Unspecified symptoms and signs involving the genitourinary system (2) Chronic prostatitis: Code(s): N41.1 - Chronic prostatitis (3) Microhematuria: Code(s): R31.29 - Other microscopic hematuria Plan In office urinalysis results reviewed with the patient today; as noted above; will send for cytology Recent PSA results reviewed with the patient today. Discussed at length potential causes for lower urinary tract symptoms patient is experiencing. Discussed bladder triggers/irritants. Discussed symptoms of chronic prostatitis. Start finasteride as discussed and prescribed. Discussed possible near future in office cystoscopy if symptoms persist and/or worsen. Discussed at length microscopic hematuria noted on UA; discussed further microscopic hematuria workup. Discussed, educated, encouraged on the importance of drinking plenty of water daily. Follow-up in 6 months with PVR; or sooner with any issues, concerns, and or questions. Orders: Orders AMB Urinalysis Automated Today Z13.9 - Encounter for screening, unspecified AMB Post Void Residual by ultrasound Today R35.0 - Frequency of micturition Urine Cytology Today R31.29 - Other microscopic hematuria Medications: New finasteride 5 mg PO DAILY 90 days 90 tabs 2RF N13.8 - Other obstructive and reflux uropathy, N40.1 - Benign prostatic hyperplasia with lower urinary tract symptoms, R33.9 - Retention of urine, unspecified Patient Instructions: The patient had an opportunity to ask questions regarding the treatment plan. All questions were answered. Physical exam, labs, and imaging were discussed and reviewed in detail. As well as risks, benefits, and discussion of treatment choices. No major barriers to understanding were identified. The patient expressed understanding and agreement with the above treatment plan. The patient was made aware they should contact our office by phone for worsening of their current condition, the appearance of new symptoms, or with any questions or concerns. Compliance is encouraged with any medications and follow up testing that is ordered. It is a privilege to be allowed the opportunity to participate in? your urological care.? Again, if you have any questions or concerns If you have any questions or concerns please do not hesitate to contact me. The office is [phone]. This note is constructed using voice recognition software. While every effort has been made to ensure accuracy conductor symphonic orchestra errors may have been included. Yours sincerely, SAM Bahena Coding Level of Care Code Est Pt Level 4 (17960) Diagnoses Lower urinary tract symptoms R39.9 Chronic prostatitis N41.1 Microhematuria R31.29 CPT Codes Post Residual Void - PVR CPT Code: 77734-Cchg Void Residual by ultrasound ([id number])
== END 2023-08-08 09:27 | disposition home or self-care (01) ==
PROVIDERS: PCP Nurse Practitioner Family; Visit Provider Nurse Practitioner Family
DX: R39.9 Unspecified symptoms and signs involving the genitourinary system (principal); N41.1 Chronic prostatitis; R31.29 Other microscopic hematuria; Z13.9 Encounter for screening, unspecified
CPT/HCPCS: 99214

== ENCOUNTER 2024-01-28 08:02 | Outpatient (REF) | payer BC, SELFPAY ==
[2024-01-28 10:13] LABS: MANUAL DIFF FLAG NO
[2024-01-28 10:31] LABS: Appearance Urine Clear; Color Urine Yellow; Glucose Urine UA Negative (Negative); Leukocyte Esterase Urine Trace (Negative); Nitrite Urine Negative (Negative); UMIC TRIGGER UACC YES; Urine Blood Small (1+) (Negative); Urine Ketones Negative (Negative); Urine Protein Negative (Neg-Trace)
[2024-01-28 10:43] LABS: Bacteria Urine None Seen (None Seen); Hyaline Casts Urine 0-2 /LPF (0-2); RBC Urine 0-2 /HPF (0-2); Squamous Epithelial Cell Urine 0-2 /HPF (0-2); WBC Urine 0-5 /HPF (0-5)
[2024-01-28 10:47] LABS: Basophils Percent Auto 0.3 % (0-2); Eosinophils Absolute Auto 0.1 X10*3/uL (0.0-0.4); Eosinophils Percent Auto 3.1 % (0-4); Hematocrit 42.1 % (42.0-52.0); Hemoglobin 14.2 g/dl (14.0-18.0); Imm Gran Abs Auto 0.01 X10*3/uL (0.00-0.03); Imm Gran Pct Auto 0.3 % (0.0-0.4); Mean Corpuscular HGB Conc 33.7 g/dl (31.0-36.0); Mean Corpuscular Hemoglobin 33.3 pg (27.0-33.0); Mean Corpuscular Volume 98.8 fL (80.0-98.0); Mean Platelet Volume 9.7 fL (9.4-12.4); Monocytes Absolute Auto 0.3 X10*3/uL (0.1-1.2); Monocytes Percent Auto 9.5 % (2-11); Neutrophils Absolute Auto 1.8 x10*3/uL (2.0-8.3); Neutrophils Percent Auto 55.8 % (45-73); Platelet Count 228 X10*3/uL (160-400); Red Blood Count 4.26 X10*6/uL (4.60-5.80); Red Cell Distribution Width 13.2 % (11.0-16.0); White Blood Count 3.3 X10*3/uL (4.8-10.8)
[2024-01-28 11:11] LABS: Alanine Aminotransferase 36 U/L (0-40); Albumin Level 4.4 g/dL (3.5-5.0); Alkaline Phosphatase 65 U/L (39-117); Anion Gap 14 (12-20); Aspartate Amino Transferase 29 U/L (5-37); Bilirubin Total 0.3 mg/dL (0.0-1.0); Blood Urea Nitrogen 12 mg/dL (9-16); Calcium 9.8 mg/dL (8.4-10.2); Carbon Dioxide 25 mmol/L (22-29); Chloride 106 mmol/L (96-108); Cholesterol 225 mg/dL (<200); Estimated Glomerular Filt Rate > 60; Glucose Fasting 102 mg/dL (60-99); HDL Cholesterol 43 mg/dL (>40); LDL Cholesterol Calculated 141 mg/dL (<100); Potassium 4.4 mmol/L (3.3-5.1); Sodium 141 mmol/L (135-145); Total Protein 7.5 g/dL (6.5-8.0); Triglycerides 208 mg/dL (<150)
[2024-01-28 11:15] LABS: Prostate Specific Antigen Scr 0.38 ng/mL (<0.05-4.0)
[2024-01-28 11:28] LABS: TSH reflex Free T4 1.92 uIU/mL (0.32-4.0); Vitamin D 25-OH Total 25.4 ng/mL (>30)
== END 2024-01-28 08:03 | disposition home or self-care (01) ==
LOC: HO.HMGCLDS 08:02
PROVIDERS: PCP Nurse Practitioner Family; Visit Provider Nurse Practitioner Family
DX: Z00.00 Encounter for general adult medical examination without abnormal findings (principal); Z12.5 Encounter for screening for malignant neoplasm of prostate
CPT/HCPCS: 36415; 80053; 80061; 81001; 82306; 84153; 84443; 85025

== ENCOUNTER 2024-01-30 12:16 | Outpatient (AMB) | payer BC, SELFPAY ==
--- NOTE | 2024-01-30 12:28 | A.OFFPC_ITS ---
Vital Signs 01/30/24 12:31 Height 6 ft Weight 248 lb BMI 33.6 BP 120/80 Blood Pressure Location Rt brachial Position Sitting Pulse 72 Pulse Source Pulse Oximeter Pulse Oximetry (%) 98 Oxygen Delivery Method Room Air Intake Visit Reasons: PE Intake Note: Patient here for physical exam. pt would like to talk about getting gabapentin for pain. colon: overdue Allergies No Known Allergies [No Known Allergies*] Allergy (Verified 01/30/24 12:33) Medication List - Last Reconciled 01/30/24 by SAM Hall atorvastatin 10 mg PO BEDTIME 90 days cholecalciferol (vitamin D3) 50 mcg PO DAILY duloxetine 20 mg PO DAILY gabapentin 100 mg PO BEDTIME 90 days ketoconazole 2% 1 appl topical BID 30 days lisinopril 5 mg PO DAILY meloxicam 15 mg PO DAILY 30 days omeprazole 40 mg PO DAILY sennosides (Natural Senna Laxative) 8.6 mg PO BEDTIME Tobacco use date assessed: 01/30/24 Dental Screening Dental Screen Date: 01/30/24 Did you have a dental visit in the last 12 months?: Yes Did you have a dental problem in the last 6 months where you did not have access to dental care?: No Was dental information given to patient?: Patient has dentist HPI PE HPI Details Pt is here for a PE. Labs were already performed. PSA is up to date. Pt sees urology. Colon screen is up to date. Pt sees GI. Leukopenia noted, pt has seen hematology for this in the past. Pt c/o LLQ discomfort into his left inguinal region (chronic, keeps him up at night, or when sitting). He has a hx of inguinal hernia repair with mesh in 2006. I believe pt's discomfort is related to the mesh, though I will order a CT to assess further pathology. Will send gabapentin. Pt reports being off of his atorvastatin for approximately 2 months. Will resend this. Pt sees a senior db2 systems programmer every 6 months. [facility] Medical History Chambers's esophagus determined by endoscopy HTN (hypertension) Dyslipidemia History of pneumonia History of depression GERD (gastroesophageal reflux disease) Anxiety Surgical History Hx of colonoscopy History of elbow surgery Hx of appendectomy Hx of inguinal hernia repair Hx of cholecystectomy Family History Father Lung cancer Maternal Aunt Breast cancer Maternal Aunt Breast cancer Mother CHF (congestive heart failure) Brother Heart attack HTN (hypertension) Maternal Grandfather Diabetes Brother HTN (hypertension) Social History Housing: House Are you a primary memory care program director to a significant other at home: No Do you presently have visiting nurse or other home services: No Alcohol intake: current Alcohol intake frequency: a few times a week Alcohol type: hard liquor Patient Tobacco Use Status: Former Tobacco user Tobacco use type: Cigarette e-Cigarette/Vaping Use: Never Used Second Hand Smoke Exposure: No service: Yes Current occupational status: employed Current occupation: [employer] Current occupational exposures/hazards: Yes Cognitive needs: No Hearing needs: No Vision needs: No Questionnaire Thrive Questionnaire Date Thrive assessed: 01/24/23 AUDIT C Alcohol Use Questionnaire (AUDIT-C) 1. How often do you have a drink containing alcohol?: Monthly or less 2. How many drinks containing alcohol do you have on a typical day when you are drinking?: 1 or 2 3. How often do you have six or more drinks on one occasion?: Never Total Score: 1 Score Reviewed/Action Taken: No ELSA-7 AMB Questionnaire ELSA-7 Date ELSA - 7 assessed: 01/24/23 Source: Developed by Drs. Stefano Watson, Leilani Corrales, Karlo Barker and colleagues, with an educational gaby from [employer]. ELSA-7 Assessment Billing ELSA-7 Assessment Tool: pt declined-do not bill Review of Systems Const Denies chills and Denies fever(s) Eyes Denies blurry vision ENT Denies vertigo, Denies dizziness and Denies sore throat Card Denies chest pain at rest, Denies chest pain with activity, Denies diaphoresis, Denies dyspnea and Denies dyspnea on exertion Resp Denies cough, Denies dyspnea, Denies dyspnea on exertion and Denies wheezing GI Denies abdominal pain, Denies melena, Denies hematochezia, Denies constipation, Denies diarrhea and Denies loose stools Denies hematuria Musc Denies numbness and Denies tingling Skin/Breast Denies lesions Neuro Denies vertigo, Denies dizziness, Denies numbness and Denies tingling Psych Denies anxiety, Denies depression, Denies homicidal ideation, Denies suicidal ideation and Denies other (substance abuse) Aller/Immun Denies wheezing Physical exam (Primary Care) Vital Signs: Last Vital Signs Pulse 72 01/30/24 12:31 BP 120/80 01/30/24 12:31 Pulse Ox 98 01/30/24 12:31 Oxygen Delivery Method Room Air 01/30/24 12:31 BMI result Body Mass Index 33.6 Tobacco/Smoking Status: Tobacco use Status Tobacco use date assessed 01/30/24 01/30/24 12:37 Patient Tobacco Use Status Former Tobacco user 01/30/24 12:29 Tobacco use type Cigarette 01/30/24 12:29 e-Cigarette/Vaping Use Never Used 01/30/24 12:29 Thrive Assessment: Date of Thrive Assessment Date Thrive assessed 01/24/23 01/30/24 12:29 Const General: cooperative Nutritional Appearance: well nourished Orientation/consciousness: patient oriented x3 HENMT Head: Yes normal to inspection, Yes normocephalic and Yes atraumatic Ears: TM's normal bilaterally Eyes General: appearance normal, both eyes and all related structures Alignment and Position: alignment normal and position normal Neck Neck: Yes normal visual inspection and Yes no lymphadenopathy Thyroid: Thyroid normal Resp Effort & Inspection: normal respiratory effort Auscultation: clear to auscultation bilaterally Cardio Rate: regular rate Rhythm: regular rhythm Heart sounds: S1 normal heart sound present, S2 normal heart sound present and no murmurs GI Other: tenderness with palpation of left upper pelvic region and left upper inguinal region, left inguinal scar, tenderness with palpation, small umbilical hernia noted Palpation (GI): Soft to palpation and nontender Auscultation: normal bowel sounds Male General Exam: Yes normal external exam Penis: normal penis Scrotum: scrotum normal, testes descended bilaterally and no inguinal hernias Testes: no testicular mass Skin Rashes: no rashes Neuro General: patient oriented x3, moves all extremities, no focal motor deficits and deep tendon reflexes 2+ bilaterally Romberg Test: Negative Psych Appearance: grossly normal Mental Status: mental status grossly normal Speech and movement: Normal speech and movement present Affect: normal affect Attitude: cooperative Thought process: Normal thought process present Thought content: Normal thought content present Insight: Good insight present (Psych) Judgement: Good judgement present (Psych) Assessment and Plan Assessment & Plan (1) Pelvic pain in male: Code(s): R10.2 - Pelvic and perineal pain Plan: CT ordered (2) Inguinal pain: Code(s): R10.30 - Lower abdominal pain, unspecified Plan: CT ordered (3) Encounter for routine adult physical exam with abnormal findings: Code(s): Z00.01 - Encounter for general adult medical examination with abnormal findings Plan The patient agreed to the use of a biomedical equipment specialist for this encounter. Scribed for SAM Garza by Holly Jernigan biomedical equipment specialist, on 01/30/2024 at 13:00 EST. Orders: Orders CT pelvis wo IV con Today R10.2 - Pelvic and perineal pain, R10.30 - Lower abdominal pain, unspecified AMB EKG-In Office Today Z00.00 - Encounter for general adult medical examination without abnormal findings Medications: New gabapentin 100 mg PO BEDTIME 90 days 90 caps 0RF Refilled atorvastatin 10 mg PO BEDTIME 90 days 90 tabs 0RF Coding Level of Care Code Est Pt Prev Care 40-64y(59554) Diagnoses Pelvic pain in male R10.2 Inguinal pain R10.30 Encounter for routine adult physical exam with abnormal findings Z00.01
[2024-01-30 12:31] VITALS: BP 120/80; PULSE 72; O2SAT 98; BMI 33.6
== END 2024-01-30 13:37 | disposition home or self-care (01) ==
PROVIDERS: PCP Nurse Practitioner Family; Visit Provider Nurse Practitioner Family
DX: Z00.01 Encounter for general adult medical examination with abnormal findings (principal); R10.2 Pelvic and perineal pain; R10.30 Lower abdominal pain, unspecified
CPT/HCPCS: 93000; 99213; 99396

== ENCOUNTER 2024-02-05 10:14 | Outpatient (AMB) | payer BC, SELFPAY ==
--- NOTE | 2024-02-05 10:19 | A.OFFVIS_ITS ---
Intake Visit Reasons: 6m follow up/prostate massage Intake Note: Patient is present for follow up prostatitis, prostate massage Urology Medications: none Blood Thinner: none Field Account Manager Required: No Accompanied by: Self / Same As Patient Allergies No Known Allergies [No Known Allergies*] Allergy (Verified 02/05/24 20:31) Medication List - Last Reconciled 02/05/24 by SAM Bahena atorvastatin 10 mg PO BEDTIME 90 days cholecalciferol (vitamin D3) 50 mcg PO DAILY duloxetine 20 mg PO DAILY gabapentin 100 mg PO BEDTIME 90 days ketoconazole 2% 1 appl topical BID 30 days lisinopril 5 mg PO DAILY meloxicam 15 mg PO DAILY 30 days omeprazole 40 mg PO DAILY sennosides (Natural Senna Laxative) 8.6 mg PO BEDTIME HPI Comments Details: Zachary is a pleasant 59-year-old male patient of Dr. Owens. He has a past medical history of anxiety, dyslipidemia, GERD, depression, hypertension, and Chambers's esophagus. He presents to the office today for follow-up regarding his lower urinary tract symptoms and chronic prostatitis. In discussion with the patient today he reports having recently started gabapentin with his PCP for ongoing issues he has been having with pain along his belt line that he believes is related to previous mesh procedure he had years ago. He reports noting over the last 6 weeks he has been noting pain at the tip of his penis when urinating, perineal pain, urinary urgency, urinary frequency, and urinary hesitancy. He had called the office approximately 1 month ago at which time he was treated for presumed prostatitis given his history and patient's reported symptoms. He reports he has since completed antibiotic therapy, prednisone, and Mobic as pr escribed however he continues with lower urinary tract symptoms. In office urinalysis results reviewed with the patient today. In office prostate massage was performed and sent for further microgen testing. HIRO noted boggy prostate no nodules or masses palpated. Previous workup has a retroperitoneal ultrasound noting bilateral kidneys with no focal parenchymal lesions or hydronephrosis. Echogenic foci without winkle artifact or shadowing may reflect vascular reflectors. No definite nephrolithiasis. The bladder well distended and normal. Bilateral ureteral jets are demonstrated. Prevoid bladder volume is 320 mL. Postvoid bladder volume is 10.9 mL. The prostate volume is 31.6 mL. He reports noting symptoms to be worse after consumption of alcohol as well as caffeine. In review of patient's chart PSAs are as follows: 10/15--0.4, 08/15 0.3, 08/16 0.4, 02/14 0.4 Patient otherwise denies any other issues or concerns at this time. Discussed at length potential causes of lower urinary tract symptoms patient is experiencing. Discussed at length chronic prostatitis. Discussed near future in office cystoscopy if symptoms persist and/or worsen. Discussed and stressed the importance of drinking plenty of water daily. She otherwise offers no other issues or concerns at this time. [facility] [place] Medical History Chambers's esophagus determined by endoscopy HTN (hypertension) Dyslipidemia History of pneumonia History of depression GERD (gastroesophageal reflux disease) Anxiety Surgical History Hx of colonoscopy History of elbow surgery Hx of appendectomy Hx of inguinal hernia repair Hx of cholecystectomy Family History Father Lung cancer Maternal Aunt Breast cancer Maternal Aunt Breast cancer Mother CHF (congestive heart failure) Brother Heart attack HTN (hypertension) Maternal Grandfather Diabetes Brother HTN (hypertension) Social History Housing: House Are you a primary health care sanitary technician to a significant other at home: No Do you presently have visiting nurse or other home services: No Alcohol intake: current Alcohol intake frequency: a few times a week Alcohol type: hard liquor Patient Tobacco Use Status: Former Tobacco user Tobacco use type: Cigarette e-Cigarette/Vaping Use: Never Used Second Hand Smoke Exposure: No service: Yes Current occupational status: employed Current occupation: [employer] Current occupational exposures/hazards: Yes Cognitive needs: No Hearing needs: No Vision needs: No Review of Systems Const Reports as per HPI Eyes Reports no additional complaints ENT Reports no additional complaints Card Reports as per HPI Resp Reports no additional complaints GI Reports as per HPI Reports as per HPI Musc Reports no additional complaints Neuro Reports no additional complaints Psych Reports as per HPI Endo Reports no additional complaints Jeremy/Lymph Reports no additional complaints Aller/Immun Reports no additional complaints Physical Exam Const General: cooperative, healthy appearing, comfortable, no acute distress, well developed, alert and awake Orientation/consciousness: patient oriented x3 Limitations: no limitations HEENT Head: Yes normal to inspection, Yes normocephalic and Yes atraumatic Ears: hearing grossly normal bilaterally Eyes General: appearance normal, both eyes and all related structures Neck Neck: Yes normal visual inspection and Yes trachea midline Chest Chest palpation & inspection: normal inspection of the chest Resp Effort & Inspection: normal respiratory effort and able to speak in complete sentences Cardio Rate: regular rate GI Inspection: Yes normal to inspection Rectal Exam - Male: Yes prostate abnormal (boggy prostate ) General: Yes no CVA tenderness Back/Spine/Pelvis Back: no CVA tenderness Skin General skin exam: no rashes or lesions noted Neuro General: patient oriented x3 Extrem General: Yes normal to inspection Psych Appearance: grossly normal and well kempt Mental Status: mental status grossly normal Speech and movement: Normal speech and movement present and Clear speech present Affect: normal affect Attitude: cooperative Thought process: Normal thought process present Thought content: Normal thought content present Insight: Fair insight present (Psych) Judgement: Fair judgement present (Psych) Assessment & Plan Assessment & Plan (1) Pelvic pain in male: Code(s): R10.2 - Pelvic and perineal pain Category: Medical (2) Chronic prostatitis: Code(s): N41.1 - Chronic prostatitis Category: Medical (3) Lower urinary tract symptoms: Code(s): R39.9 - Unspecified symptoms and signs involving the genitourinary system Category: Medical (4) Prostatitis: Code(s): N41.9 - Inflammatory disease of prostate, unspecified Category: Medical Plan In office urinalysis results reviewed with the patient today; as noted above. Prostate massage performed will send for microgen testing; will await results for potential treatment. Discussed at length potential causes for lower urinary tract symptoms patient is experiencing. Discussed chronic prostatitis. Discussed, educated, and stressed the importance of drinking water daily. Discussed bladder triggers/irritants. Recent PSA results reviewed with the patient today. Discussed potential near future in office cystoscopy if symptoms persist and/or worsen. Follow-up in 1-2 months with [facility]; or sooner with any issues, concerns, and or questions. Patient Instructions: The patient had an opportunity to ask questions regarding the treatment plan. All questions were answered. Physical exam, labs, and imaging were discussed and reviewed in detail. As well as risks, benefits, and discussion of treatment choices. No major barriers to understanding were identified. The patient expressed understanding and agreement with the above treatment plan. The patient was made aware they should contact our office by phone for worsening of their current condition, the appearance of new symptoms, or with any questi ons or concerns. Compliance is encouraged with any medications and follow up testing that is ordered. It is a privilege to be allowed the opportunity to participate in? your urological care.? Again, if you have any questions or concerns If you have any questions or concerns please do not hesitate to contact me. The office is [phone]. This note is constructed using voice recognition software. While every effort has been made to ensure accuracy plate cutter errors may have been included. Yours sincerely, SAM Bahena Coding Level of Care Code Est Pt Level 4 (03897) Diagnoses Pelvic pain in male R10.2 Chronic prostatitis N41.1 Lower urinary tract symptoms R39.9 Prostatitis N41.9
== END 2024-02-05 10:51 | disposition home or self-care (01) ==
PROVIDERS: PCP Nurse Practitioner Family; Visit Provider Nurse Practitioner Family
DX: R10.2 Pelvic and perineal pain (principal); N41.1 Chronic prostatitis; R39.9 Unspecified symptoms and signs involving the genitourinary system; N41.9 Inflammatory disease of prostate, unspecified
CPT/HCPCS: 99214

== ENCOUNTER → 2024-02-05 10:14 | Outpatient (BNVA) | payer BC, SELFPAY | PROVIDERS: PCP Nurse Practitioner Family; Visit Provider Nurse Practitioner Family ==

== ENCOUNTER 2024-02-13 08:34 | Outpatient (AMB) | payer BC, SELFPAY ==
--- NOTE | 2024-02-13 08:42 | MHC.OFFVIS ---
Vital Signs 02/13/24 08:50 Height 6 ft Weight 246 lb 14.684 oz BMI 33.5 BP 143/83 H Blood Pressure Location Lt brachial Position Sitting Pulse 68 Intake Visit Reasons: 1 yr follow up Intake Note: Patient is seen in office for yearly follow up, following GERD and epigastric pain. Pt c/o: admits to continued pain in the chest, symptoms get better when taking the omeprazole Creative Services Producer Required: No Allergies No Known Allergies [No Known Allergies*] Allergy (Verified 02/05/24 20:31) HPI HPI 1 yr follow up: Details: LAST VISIT: Epigastric abdominal pain Continue taking omeprazole is ordered. Avoid dietary triggers and late night snacking. Staying upright for minimum 3 hours after meals discussed with patient. Constipation Continue taking senna as needed. Patient states that he uses about twice a week. Patient was also encouraged to increase fluid intake and activity to promote better bowel motility. Patient did notice that the when he drinks more fluids he has better bowel movements. Chambers's esophagus determined by endoscopy Diagnosed with Chambers's last endoscopy. Discussed with patient compliance with omeprazole. Patient will need to return for upper endoscopy in the December/January of 2025. Food I will see patient in 1 year, sooner on as needed basis. Patient is agreeable to this plan and verbalizes understanding of instructions. He was given the opportunity to ask questions and all questions answered. ? Thank you for allowing me to participate in his care Plan Medications Refilled omeprazole 40 mg PO DAILY 90 caps 3RF K21.9 - Gastro-esophageal reflux disease without esophagitis TODAY'S VISIT Patient is here today for follow-up. Patient reports that he has been feeling well, however occasionally he will still have epigastric burning. Omeprazole helps. He understands that he needs to stay away from food that is spicy or fried. Occasional abdominal bloating and constipation. Denies any nausea or vomiting. Upper endoscopy in December of 2021 showed Barretts esophagus and recommendation was to repeat endoscopy in 3 years. Patient denies laying down after meals. [facility] Medical History Chambers's esophagus determined by endoscopy HTN (hypertension) Dyslipidemia History of pneumonia History of depression GERD (gastroesophageal reflux disease) Anxiety Surgical History Hx of colonoscopy History of elbow surgery Hx of appendectomy Hx of inguinal hernia repair Hx of cholecystectomy Family History Father Lung cancer Maternal Aunt Breast cancer Maternal Aunt Breast cancer Mother CHF (congestive heart failure) Brother Heart attack HTN (hypertension) Maternal Grandfather Diabetes Brother HTN (hypertension) Social History Housing: House Are you a primary manager progressive care to a significant other at home: No Do you presently have visiting nurse or other home services: No Alcohol intake: current Alcohol intake frequency: a few times a week Alcohol type: hard liquor Patient Tobacco Use Status: Former Tobacco user Tobacco use type: Cigarette e-Cigarette/Vaping Use: Never Used Second Hand Smoke Exposure: No service: Yes Current occupational status: employed Current occupation: [employer] Current occupational exposures/hazards: Yes Cognitive needs: No Hearing needs: No Vision needs: No Review of Systems Const Denies weight gain and Denies weight loss ENT Reports no additional complaints, Denies dysphagia and Denies odynophagia Card Reports no additional complaints Resp Reports no additional complaints GI Denies abdominal pain, Denies belching, Denies melena, Denies bloating, Denies change in bowel habits, Denies dysphagia, Denies excessive flatus, Denies dyspepsia, Denies heartburn, Denies diarrhea, Denies loose stools, Denies nausea, Denies odynophagia and Denies vomiting Reports no additional complaints Musc Reports no additional complaints Neuro Reports no additional complaints Psych Reports no additional complaints Endo Reports no additional complaints Physical Exam Vital Signs: Last Vital Signs Pulse 68 02/13/24 08:50 BP 143/83 H 02/13/24 08:50 BMI result Body Mass Index 33.5 Const General: healthy appearing, no acute distress and well developed Nutritional Appearance: obese Orientation/consciousness: patient oriented x3 Resp Effort & Inspection: normal respiratory effort, able to speak in complete sentences, no tracheal deviation and symmetric chest movement Auscultation: clear to auscultation bilaterally Cardio Rate: regular rate GI Inspection: Yes normal to inspection, No distended and Yes obesity Palpation (GI): Soft to palpation, not firm, nontender and No hepatosplenomegaly present Auscultation: normal bowel sounds General: Yes no CVA tenderness Back/Spine/Pelvis Back: no CVA tenderness Skin General skin exam: elasticity normal, turgor normal and dry skin Neuro General: patient oriented x3 Psych Appearance: grossly normal Mental Status: mental status grossly normal Assessment & Plan Assessment & Plan (1) Epigastric abdominal pain: Code(s): R10.13 - Epigastric pain Category: Medical (2) Constipation: Code(s): K59.00 - Constipation, unspecified Category: Medical Qualifiers: Constipation type: slow transit constipation Qualified Code(s): K59.01 - Slow transit constipation (3) Chambers's esophagus determined by endoscopy: Code(s): K22.70 - Chambers's esophagus without dysplasia Category: Medical Plan Continue omeprazole daily. Avoid dietary triggers and late night snacking. Return in 8 months to discuss going for upper endoscopy. Patient may take senna and Colace to help him move his bowels. Avoid straining. Increase fiber. Staying upright for minimum 3 hours after meals discussed with patient. He is agreeable to this plan and verbalizes understanding of instructions. He was given the opportunity to ask questions and all questions answered. Thank you for allowing me to participate in his care Medications: New docusate sodium 100 mg PO BEDTIME 90 caps 3RF K59.00 - Constipation, unspecified Coding Level of Care Code Est Pt Level 3 (17247) Diagnoses Epigastric abdominal pain R10.13 Slow transit constipation K59.01 Constipation type: slow transit constipation Chambers's esophagus determined by endoscopy K22.70 Time Spent (min) 30 Comment 20 minutes spent with patient and additional 10 minutes spent reviewing his records
[2024-02-13 08:50] VITALS: BP 143/83; PULSE 68; BMI 33.5
== END 2024-02-13 09:17 | disposition home or self-care (01) ==
PROVIDERS: Visit Provider Nurse Practitioner Family
DX: R10.13 Epigastric pain (principal); K59.01 Slow transit constipation; K22.70 Barrett's esophagus without dysplasia
CPT/HCPCS: 99213

== ENCOUNTER → 2024-02-13 08:34 | Outpatient (BNVA) | payer BC, SELFPAY | PROVIDERS: Visit Provider Nurse Practitioner Family ==

== ENCOUNTER 2024-04-07 08:30 | Outpatient (AMB) | payer BC, SELFPAY ==
--- NOTE | 2024-04-07 08:48 | A.OFFVIS_ITS ---
Intake Visit Reasons: 2m/PVR Intake Note: Patient presents today for follow up on: Prostatitis Urology Medications: Finasteride (patient stopped taking) Blood Thinner: none PVR: 210ml's Congregational Care Pastor Required: No Accompanied by: Self / Same As Patient Allergies No Known Allergies [No Known Allergies*] Allergy (Verified 04/07/24 10:30) Medication List - Last Reconciled 04/07/24 by JACKIE Bahena-LA atorvastatin 10 mg PO BEDTIME 90 days cholecalciferol (vitamin D3) 50 mcg PO DAILY docusate sodium 100 mg PO BEDTIME duloxetine 40 mg PO DAILY gabapentin 200 mg (2 x 100 mg) PO TID 30 days ketoconazole 2% 1 appl topical BID 30 days lisinopril 5 mg PO DAILY omeprazole 40 mg PO DAILY tamsulosin 0.4 mg PO BEDTIME 30 days HPI Comments Details: Zachary is a pleasant 59-year-old male patient of Dr. Owens. He has a past medical history of anxiety, dyslipidemia, GERD, depression, hypertension, and Chambers's esophagus. He presents to the office today for follow-up regarding his lower urinary tract symptoms and chronic prostatitis. Of note, during last office visit prostate massage was performed and sent for microgen. Microgen noted no growth. Discussed at length possible chronic prostatitis. Patient with previous treatment of prostatitis however continues with ongoing lower urinary tract symptoms. He reports having followed up with his PCP for ongoing left- sided abdominal pain and pressure has been experiencing and believes this is related to his previous mesh/ inguinal hernia procedure. He continues to report feeling of incomplete bladder emptying and straining with urination. In office urinalysis results reviewed with the patient today. PVR 210ml's. Discussed causes and affects of incomplete bladder emptying. HIRO noted boggy prostate no nodules or masses palpated. Previous workup has a retroperitoneal ultrasound noting bilateral kidneys with no focal parenchymal lesions or hydronephrosis. Echogenic foci without winkle artifact or shadowing may reflect vascular reflectors. No definite nephrolithiasis. The bladder well distended and normal. Bilateral ureteral jets are demonstrated. Prevoid bladder volume is 320 mL. Postvoid bladder volume is 10.9 mL. The prostate volume is 31.6 mL. He reports noting symptoms to be worse after consumption of alcohol as well as caffeine. In review of patient's chart PSAs are as follows: 10/15--0.4, 08/15 0.3, 08/16 0.4, 02/14 0.4 Patient otherwise denies any other issues or concerns at this time. Discussed at length potential causes of lower urinary tract symptoms patient is experiencing. Discussed at length chronic prostatitis. Discussed in office cystoscopy. Discussed and stressed the importance of drinking plenty of water daily. He otherwise offers no other issues or concerns at this time. [facility] Medical History Chambers's esophagus determined by endoscopy HTN (hypertension) Dyslipidemia History of pneumonia History of depression GERD (gastroesophageal reflux disease) Anxiety Surgical History Hx of colonoscopy History of elbow surgery Hx of appendectomy Hx of inguinal hernia repair Hx of cholecystectomy Family History Father Lung cancer Maternal Aunt Breast cancer Maternal Aunt Breast cancer Mother CHF (congestive heart failure) Brother Heart attack HTN (hypertension) Maternal Grandfather Diabetes Brother HTN (hypertension) Social History Housing: House Are you a primary child caregiver private home to a significant other at home: No Do you presently have visiting nurse or other home services: No Alcohol intake: current Alcohol intake frequency: a few times a week Alcohol type: hard liquor Patient Tobacco Use Status: Former Tobacco user Tobacco use type: Cigarette e-Cigarette/Vaping Use: Never Used Second Hand Smoke Exposure: No service: Yes Current occupational status: employed Current occupation: [employer] Current occupational exposures/hazards: Yes Cognitive needs: No Hearing needs: No Vision needs: No Review of Systems Const Reports as per HPI Eyes Reports no additional complaints ENT Reports no additional complaints Card Reports as per HPI Resp Reports no additional complaints GI Reports as per HPI Reports as per HPI Musc Reports no additional complaints Neuro Reports no additional complaints Psych Reports as per HPI Endo Reports no additional complaints Jeremy/Lymph Reports no additional complaints Aller/Immun Reports no additional complaints Physical Exam Const General: cooperative, healthy appearing, comfortable, no acute distress, well developed, alert and awake Orientation/consciousness: patient oriented x3 Limitations: no limitations HEENT Head: Yes normal to inspection, Yes normocephalic and Yes atraumatic Ears: hearing grossly normal bilaterally Eyes General: appearance normal, both eyes and all related structures Neck Neck: Yes normal visual inspection and Yes trachea midline Chest Chest palpation & inspection: normal inspection of the chest Resp Effort & Inspection: normal respiratory effort and able to speak in complete sentences Cardio Rate: regular rate GI Inspection: Yes normal to inspection Rectal Exam - Male: Yes prostate abnormal (boggy prostate ) General: Yes no CVA tenderness Back/Spine/Pelvis Back: no CVA tenderness Skin General skin exam: no rashes or lesions noted Neuro General: patient oriented x3 Extrem General: Yes normal to inspection Psych Appearance: grossly normal and well kempt Mental Status: mental status grossly normal Speech and movement: Normal speech and movement present and Clear speech present Affect: normal affect Attitude: cooperative Thought process: Normal thought process present Thought content: Normal thought content present Insight: Fair insight present (Psych) Judgement: Fair judgement present (Psych) Office Procedures Post Void Residual Post Residual Void Post Void Residual (PVR): 210 [id number] Void Residual by ultrasound Results AMB Urinalysis, Automated UA Leukoctes 0 Marta/uL Last Edit by [employer] on 04/07/24 09:07 UA Nitrite Negative Last Edit by [employer] on 04/07/24 09:07 UA Urobilinogen 0.2 mg/dL Last Edit by [employer] on 04/07/24 09:07 UA Protein 0 mg/dL Last Edit by [employer] on 04/07/24 09:07 UA pH 6.0 Last Edit by [employer] on 04/07/24 09:07 UA Blood 0 Jevon/uL Last Edit by [employer] on 04/07/24 09:07 UA Specific [place] 1.000 Last Edit by [employer] on 04/07/24 09:07 UA Ketone Negative Last Edit by [employer] on 04/07/24 09:07 UA Bilirubin 0 mg/dL Last Edit by [employer] on 04/07/24 09:07 UA Glucose 0 mg/dL Last Edit by [employer] on 04/07/24 09:07 Results Reviewed Results Reviewed: Laboratory Last Values Urine pH (Auto) 6.0 04/07/24 09:06 Specific [place] (Auto) 1.000 04/07/24 09:06 Urine Protein (Auto) 0 mg/dL 04/07/24 09:06 Glucose (UA)(Auto) 0 mg/dL 04/07/24 09:06 Urine Ketones (Auto) Negative 04/07/24 09:06 Urine Blood (Auto) 0 Jevon/uL 04/07/24 09:06 Urine Nitrite (Auto) Negative 04/07/24 09:06 Urine Bilirubin (Auto) 0 mg/dL 04/07/24 09:06 Urine Urobilinogen (Auto) 0.2 mg/dL 04/07/24 09:06 Leukocyte Esterase (Auto) 0 Marta/uL 04/07/24 09:06 Assessment & Plan Assessment & Plan (1) Chronic prostatitis: Code(s): N41.1 - Chronic prostatitis Category: Medical (2) Lower urinary tract symptoms: Code(s): R39.9 - Unspecified symptoms and signs involving the genitourinary system Category: Medical (3) Urinary frequency: Code(s): R35.0 - Frequency of micturition Category: Medical (4) Incomplete bladder emptying: Code(s): R33.9 - Retention of urine, unspecified Category: Medical Plan In office urinalysis results reviewed with the patient today; as noted above. PVR 210 mL. Discussed at length chronic prostatitis. Start Flomax as discussed and prescribed. Discussed potential causes and affects of incomplete bladder emptying. Discussed bladder triggers/irritants. Follow-up in office cystoscopy; or sooner with any issues, concerns, and or questions. Orders: Orders AMB Urinalysis Automated Today Z13.9 - Encounter for screening, unspecified AMB Post Void Residual by ultrasound Today R39.9 - Unspecified symptoms and signs involving the genitourinary system Medications: New tamsulosin 0.4 mg PO BEDTIME 30 caps 2RF 30 days N40.1 - Benign prostatic hyperplasia with lower urinary tract symptoms, R35.1 - Nocturia Patient Instructions: The patient had an opportunity to ask questions regarding the treatment plan. All questions were answered. Physical exam, labs, and imaging were discussed and reviewed in detail. As well as risks, benefits, and discussion of treatment choices. No major barriers to understanding were identified. The patient expressed understanding and agreement with the above treatment plan. The patient was made aware they should contact our office by phone for worsening of their current condition, the appearance of new symptoms, or with any questions or concerns. Compliance is encouraged with any medications and follow up testing that is ordered. It is a privilege to be allowed the opportunity to participate in? your urological care.? Again, if you have any questions or concerns If you have any questions or concerns please do not hesitate to contact me. The office is [phone]. This note is constructed using voice recognition software. While every effort has been made to ensure accuracy fashion editor errors may have been included. Yours sincerely, [facility] Bahena Coding Level of Care Code Est Pt Level 3 (50292) Complex EM visit Add On G2211 Diagnoses Chronic prostatitis N41.1 Lower urinary tract symptoms R39.9 Urinary frequency R35.0 Incomplete bladder emptying R33.9 CPT Codes Post Residual Void - PVR CPT Code: 35713-Stwy Void Residual by ultrasound ([id number])
== END 2024-04-07 09:27 | disposition home or self-care (01) ==
PROVIDERS: PCP Nurse Practitioner Family; Visit Provider Nurse Practitioner Family
DX: N41.1 Chronic prostatitis (principal); R39.9 Unspecified symptoms and signs involving the genitourinary system; R35.0 Frequency of micturition; R33.9 Retention of urine, unspecified; Z13.9 Encounter for screening, unspecified
CPT/HCPCS: 99213

== ENCOUNTER → 2024-04-07 08:30 | Outpatient (BNVA) | payer BC, SELFPAY | PROVIDERS: PCP Nurse Practitioner Family; Visit Provider Nurse Practitioner Family | DX: N41.1 Chronic prostatitis (principal); R39.9 Unspecified symptoms and signs involving the genitourinary system; R35.0 Frequency of micturition; R33.9 Retention of urine, unspecified | CPT/HCPCS: 51798; 81003 ==

== ENCOUNTER 2024-04-10 06:20 | Outpatient (REF) | payer BC, SELFPAY ==
--- NOTE | ~2024-04-10 | CT_ITS ---
EXAMINATION: CT ABDOMEN AND PELVIS WITH CONTRAST CLINICAL INFORMATION: Lower abdominal pain. COMPARISON: None available. TECHNIQUE: Multidetector volumetric images were obtained from the superior aspect of the liver through the pubic symphysis following administration 85 mL of Omnipaque 350 intravenous contrast. Sagittal and coronal reformatted images were obtained on the technologist's workstation. Oral contrast: Yes This CT examination was performed using dose optimization techniques as appropriate, variously including the following: *Automated exposure control *Adjustment of mA and/or kV according to patient size (this includes techniques or standardized protocols for targeted exams where dose is matched to indication/reason for exam; i.e. extremities or head) *Use of iterative reconstruction technique DLP: 622 mGy-cm FINDINGS: LUNG BASES: No suspicious pulmonary nodules. LIVER, GALLBLADDER, AND BILIARY TREE: Liver is normal in attenuation. Focal low attenuation in segment 4 along the falciform ligament consistent with focal steatosis. No biliary ductal dilatation. Cholecystectomy. PANCREAS: No discrete pancreatic mass. No pancreatic ductal dilatation. SPLEEN: The spleen appears normal. ADRENAL GLANDS: There is no adrenal mass. KIDNEYS AND URETERS: The kidneys are normal in size, shape, and attenuation. No hydronephrosis, hydroureter, or calculi seen. No perinephric stranding. BLADDER: Unremarkable. GASTROINTESTINAL TRACT: Mild sigmoid diverticulosis without evidence of acute diverticulitis. The small and large bowel are normal in caliber with no focal bowel wall thickening or acute inflammatory changes. Appendectomy. ABDOMINAL WALL: Small fat-containing umbilical hernia. LYMPH NODES: No pathologically enlarged lymph nodes. VASCULAR: No aortic aneurysm. Mild aortic atherosclerosis. PELVIC VISCERA: The prostate is mildly enlarged. OSSEOUS STRUCTURES: Mild degenerative changes in the spine. CT/CT abdomen pelvis w IV con IMPRESSION: Mild sigmoid diverticulosis without evidence of acute diverticulitis. Small fat-containing umbilical hernia without acute inflammatory changes. Mildly enlarged prostate. Fleischner guidelines were followed.
[2024-04-10] MEDS: iohexoL 350 MG/ML 100 ML INFUS..BTL 85 ML IV (09:07)
[2024-04-10] MEDS: Barium Sulfate Oral (Mocha) 450 ML ORAL.SUSP 900 ML PO (09:07)
[2024-04-15 08:47] LABS: Creatinine POC 0.9 mg/dL (0.5-1.4); GFR POC > 60
== END 2024-04-10 06:21 | disposition home or self-care (01) ==
LOC: HO.CT 06:20
PROVIDERS: PCP Nurse Practitioner Family; Visit Provider Nurse Practitioner Family
DX: R10.2 Pelvic and perineal pain (principal); R10.30 Lower abdominal pain, unspecified
CPT/HCPCS: 74177; 82565; Q9967

== ENCOUNTER 2024-05-23 13:49 | Outpatient (AMB) | payer BC, SELFPAY ==
--- NOTE | 2024-05-23 13:58 | MHC.OFFVIS ---
Intake Visit Reasons: cysto Intake Note: Patient is Present for Cystoscopy(Incomplete emptying of bladder) Urology Med: Tamsulosin Antibiotic Allergy:None Blood Thinner:None Recent Microgen 01/2024 Recent PSA- 0.38 (01/2024) URO- G Disposable Cystoscope lot: [id number] exp: 01/03/2027 Farm Assistant Required: No Accompanied by: Self / Same As Patient Allergies No Known Allergies [No Known Allergies*] Allergy (Verified 06/17/24 15:06) HPI Comments Details: Zachary is a pleasant male. He is a patient of Dr. Ochoa. Seen for the following urologic conditions - chronic prostatitis Here for cystoscopy Inflamed patches seen on cystoscopy Recommend bladder biopsy with fulguration Chronic prostatitis Ongoing problems Microgen performed negative Lower left-sided abdominal discomfort secondary to prior inguinal hernia repair Elevated PVR of 200 cc Prior HIRO boggy prostate Bladder ultrasound prostate volume 30 cc Bladder performance aggravated by alcohol consumption 10/15--0.4, 08/15 0.3, 08/16 0.4, 02/14 0.4 PFSH Medical History Chambers's esophagus determined by endoscopy HTN (hypertension) Dyslipidemia History of pneumonia History of depression GERD (gastroesophageal reflux disease) Anxiety Surgical History Hx of colonoscopy History of elbow surgery Hx of appendectomy Hx of inguinal hernia repair Hx of cholecystectomy Family History Father Lung cancer Maternal Aunt Breast cancer Maternal Aunt Breast cancer Mother CHF (congestive heart failure) Brother Heart attack HTN (hypertension) Maternal Grandfather Diabetes Brother HTN (hypertension) Social History Housing: House Are you a primary team primary care physician to a significant other at home: No Do you presently have visiting nurse or other home services: No Alcohol intake: current Alcohol intake frequency: does not drink Alcohol type: hard liquor Patient Tobacco Use Status: Current someday Tobacco user Tobacco use type: Cigarette e-Cigarette/Vaping Use: Never Used Second Hand Smoke Exposure: No service: Yes Current occupational status: employed Current occupation: [employer] Current occupational exposures/hazards: Yes Cognitive needs: No Hearing needs: No Vision needs: No Review of Systems Const Denies chills and Denies fever(s) Card Reports no additional complaints and Denies syncope Resp Denies cough GI Denies abdominal pain and Denies heartburn Reports as per HPI and Denies change in libido Neuro Denies syncope Psych Denies change in libido Endo Denies change in libido Physical Exam Const General: cooperative, healthy appearing, comfortable and no acute distress Orientation/consciousness: patient oriented x3 HEENT Face and sinus: Yes normal facial exam Mouth: moist mucous membranes Neck Neck: Yes normal visual inspection, Yes full ROM and Yes trachea midline Chest Chest palpation & inspection: normal inspection of the chest Resp Effort & Inspection: normal respiratory effort, able to speak in complete sentences and no respiratory distress GI Inspection: Yes normal to inspection Back/Spine/Pelvis Cervical Spine: normal cervical lordosis Thoracic/Lumbar Spine: thoracic and lumbar spine normal to inspection Skin General skin exam: no rashes or lesions noted Neuro General: patient oriented x3, gait normal, tone normal and moves all extremities Extrem General: Yes normal to inspection and Yes capillary refill normal Office Procedures Cystoscopy Consent Discussed risk and benefit or proposed procedure with the patient. Information consent for procedure given to the patient. Discussed technical aspects, risks, benefits and alternatives in full. Addressed all of the patient's questions and concerns regarding the procedure. The patient demonstrated knowledge and understanding. They wish to proceed with this procedure. Preparation The patient was prepped in the usual manner. A welding machine operator plasma arc was present and in the room. Genitalia was prepped with betadine solution in a sterile manner. Lidocaine Jelly 2% was placed into the urethra and 16Fr flexible Olympus cystoscope was inserted into the meatus after adequate lubrication. Procedure Cystoscopy performed using a disposable Urovue digital 16 Green[place]ic cystoscope. Meatus circumcised Urethra anterior and posterior urethra normal Prostatic Urethra unremarkable Bladder examination with retroflexion of cystoscope Bladder Orifices normal shape and position Patchy Bladder Capacity median Trabeculations grade 2 Cellule Formation - Diverticulum Formation - Mucosal Erythema mucosal erythema patchy Bladder Tumor - [id number] DISPOSABLE SCOPE URO-G FLEXIBLE SCOPE Procedure code (CPT) selection complete Office Meds lidocaine HCl 2 % mucosal jelly in applicator Performing Provider: Kirill Cisneros MD [facility]forming [facility] Administered by: Abel Bergeron LPN on 05/23/24 14:27 Dose Route Admin Location Dispensed Lot Number Expiration Date ND Implementation Project Coordinator 10 mL intra-urethral 10 mL nitrofurantoin monohydrate/macrocrystals 100 mg capsule Performing Provider: Kirill Cisneros MD Performing Location: [facility] Administered by: Abel Bergeron LPN on 05/23/24 14:27 Dose Route Admin Location Dispensed Lot Number Expiration Date NDC Implementation Project Coordinator 100 mg PO 1 cap naproxen 500 mg tablet Performing Provider: Kirill Cisneros MD Performing Location: [facility] Administered by: Abel Bergeron LPN on 05/23/24 14:27 Dose Route Admin Location Dispensed Lot Number Expiration Date ND Implementation Project Coordinator 500 mg PO 1 tab Results AMB Urinalysis, Automated UA Leukoctes 0 Marta/uL Last Edit by Radha Vyas [employer] on 05/23/24 14:21 UA Nitrite Negative Last Edit by Radha Vyas [facility] on 05/23/24 14:21 UA Urobilinogen 0.2 mg/dL Last Edit by Radha Vyas [facility] on 05/23/24 14:21 UA Protein 0 mg/dL Last Edit by Radha Vyas [facility] on 05/23/24 14:21 UA pH 6.0 Last Edit by Radha Vyas [facility] on 05/23/24 14:21 UA Blood 0 Jevon/uL Last Edit by Radha Vyas A on 05/23/24 14:21 UA Specific [place] 1.025 Last Edit by Radha Vyas [facility] on 05/23/24 14:21 UA Ketone Negative Last Edit by Radha Vyas [facility] on 05/23/24 14:21 UA Bilirubin 0 mg/dL Last Edit by Radha Vyas A on 05/23/24 14:21 UA Glucose 0 mg/dL Last Edit by Radha Vyas [facility] on 05/23/24 14:21 Results Reviewed Results Reviewed: Laboratory Last Values Urine pH (Auto) 6.0 05/23/24 14:16 Specific [place] (Auto) 1.025 05/23/24 14:16 Urine Protein (Auto) 0 mg/dL 05/23/24 14:16 Glucose (UA)(Auto) 0 mg/dL 05/23/24 14:16 Urine Ketones (Auto) Negative 05/23/24 14:16 Urine Blood (Auto) 0 Jevon/uL 05/23/24 14:16 Urine Nitrite (Auto) Negative 05/23/24 14:16 Urine Bilirubin (Auto) 0 mg/dL 05/23/24 14:16 Urine Urobilinogen (Auto) 0.2 mg/dL 05/23/24 14:16 Leukocyte Esterase (Auto) 0 Marta/uL 05/23/24 14:16 Assessment & Plan Assessment & Plan (1) Chronic interstitial cystitis: Code(s): N30.10 - Interstitial cystitis (chronic) without hematuria Category: Medical Plan Risks, benefits and alternatives to therapy were discussed. These include but are not limited to infection, bleeding, damage to local organs and tissues, need for further interventions. Anesthetic risks regarding cardiac arrhythmia, blood clots, and potential mortality were discussed. The patient understands the typical recovery time and the outpatient nature of the procedure. After consideration of these risks the patient gives full informed consent and they wish to move ahead with the procedure. Cystoscopy, bladder biopsy, fulguration Orders: Orders AMB Urinalysis Automated 05/23/24 Z13.9 - Encounter for screening, unspecified AMB Cystoscopy 05/23/24 R33.9 - Retention of urine, unspecified Medications: New amitriptyline 25 mg PO BEDTIME 30 tabs 0RF 30 days N30.10 - Interstitial cystitis (chronic) without hematuria gabapentin 300 mg PO BEDTIME 30 caps 0RF 30 days N30.10 - Interstitial cystitis (chronic) without hematuria, R23.2 - Flushing, T50.905A - Adverse effect of unspecified drugs, medicaments and biological substances, initial encounter naproxen (Naprosyn) 500 mg PO BEDTIME 30 tabs 0RF pain 30 days N30.10 - Interstitial cystitis (chronic) without hematuria Coding Level of Care Code Est Pt Level 4 (58172) Diagnoses Chronic interstitial cystitis N30.10 CPT Codes Cystoscopy - CPT: 86463-[id number] ([id number])
== END 2024-05-23 14:49 | disposition home or self-care (01) ==
PROVIDERS: PCP Nurse Practitioner Family; Visit Provider Urology
DX: R33.9 Retention of urine, unspecified (principal); Z13.9 Encounter for screening, unspecified
CPT/HCPCS: 52000; 99214

== ENCOUNTER → 2024-05-23 13:49 | Outpatient (BNVA) | payer BC, SELFPAY | PROVIDERS: PCP Nurse Practitioner Family; Visit Provider Urology | DX: N30.10 Interstitial cystitis (chronic) without hematuria (principal); R33.9 Retention of urine, unspecified | CPT/HCPCS: 52000; 81003 ==

== ENCOUNTER 2024-06-02 08:48 | Day surgery (SDC) | payer BC, SELFPAY ==
--- NOTE | 2024-05-30 09:51 | HO.ANESPROP2 ---
Documented by User: Olamide Sykes NP 05/30/24 09:53 HPI - Anesthesia Eval Consult details Narrative: 59yo M for Cystoscopy & Bladder Biopsy fulgeration and hydrodistension PMFSH Active Problems Active Problems: All Active Problems Chronic interstitial cystitis (Acute) LLQ abdominal pain (Acute) Incomplete bladder emptying (Acute) Abdominal pain (Acute) Encounter for routine adult physical exam with abnormal findings (Acute) Inguinal pain (Acute) Pelvic pain in male (Acute) Chronic prostatitis (Acute) Lower urinary tract symptoms (Acute) Urinary frequency (Acute) Dysuria (Acute) Chambers's esophagus determined by endoscopy (Acute) Prostatitis (Acute) Anemia (Acute) Microhematuria (Acute) Urinary urgency (Acute) Skin lesions (Acute) Essential hypertension (Acute) Physical exam (Acute) Screening PSA (prostate specific antigen) (Acute) Anemia (Acute) Leukopenia (Acute) High triglycerides (Acute) Dyslipidemia (Acute) Epigastric abdominal pain (Acute) Constipation (Acute) Tinea (Acute) Past Medical History Medical History Chambers's esophagus determined by endoscopy HTN (hypertension) Dyslipidemia History of pneumonia History of depression GERD (gastroesophageal reflux disease) Anxiety Family History Family History Father Lung cancer Maternal Aunt Breast cancer Maternal Aunt Breast cancer Mother CHF (congestive heart failure) Brother Heart attack HTN (hypertension) Maternal Grandfather Diabetes Brother HTN (hypertension) Family history of problems with anesthesia: No Surgical History Surgical History Hx of colonoscopy History of elbow surgery Hx of appendectomy Hx of inguinal hernia repair Hx of cholecystectomy History of Problems with Anesthesia: No Social History Social History Housing: House Are you a primary inspector health care facilities to a significant other at home: No Do you presently have visiting nurse or other home services: No Alcohol intake: current Alcohol intake frequency: does not drink Alcohol type: hard liquor Patient Tobacco Use Status: Current someday Tobacco user Tobacco use type: Cigarette e-Cigarette/Vaping Use: Never Used Second Hand Smoke Exposure: No Have you been hit, kicked, punched, or otherwise hurt by someone within the past year? If so, by whom?: No Are you DNR?: No Advance Directives: No Advance Directives Information Provided: Yes Nutrition Risks: No Nutritional Risk service: Yes Current occupational status: employed Current occupation: [employer] Current occupational exposures/hazards: Yes Cognitive needs: No Hearing needs: No Vision needs: No Meds Allergies Allergy/AdvReac Type Severity Reaction Status Date / Time No Known Allergies Allergy Verified 05/23/24 14:15 [No Known Allergies*] Home Medications ?Medication ?Instructions ?Recorded ?Confirmed ?Last Taken ?Type duloxetine 40 mg capsule,delayed 40 mg PO DAILY 02/13/24 05/20/24 Unknown History release Exam Pertinent Lab Results Pertinent Lab Results: Laboratory Tests 01/28/24 08:07 WBC 3.3 L Hgb 14.2 Hct 42.1 Plt Count 228 Sodium 141 Potassium 4.4 Chloride 106 Carbon Dioxide 25 BUN 12 Creatinine 1.22 Narrative Narrative: EKG 01/2024 NSR @ 63 Assessment and Plan Assessment Anesthesia Assessment: Chart Reviewed Final Anesthetic Review Family History of Problems with Anesthesia: No History of Problems with Anesthesia: No Documented by User: Tim Melton MD 06/02/24 14:59 PMFSH Past Medical History Medical History Chambers's esophagus determined by endoscopy HTN (hypertension) Dyslipidemia History of pneumonia History of depression GERD (gastroesophageal reflux disease) Anxiety Family History Family History Father Lung cancer Maternal Aunt Breast cancer Maternal Aunt Breast cancer Mother CHF (congestive heart failure) Brother Heart attack HTN (hypertension) Maternal Grandfather Diabetes Brother HTN (hypertension) Surgical History Surgical History Hx of colonoscopy History of elbow surgery Hx of appendectomy Hx of inguinal hernia repair Hx of cholecystectomy Social History Social History Housing: House Are you a primary inspector health care facilities to a significant other at home: No Do you presently have visiting nurse or other home services: No Alcohol intake: current Alcohol intake frequency: does not drink Alcohol type: hard liquor Patient Tobacco Use Status: Current someday Tobacco user Tobacco use type: Cigarette e-Cigarette/Vaping Use: Never Used Second Hand Smoke Exposure: No Have you been hit, kicked, punched, or otherwise hurt by someone within the past year? If so, by whom?: No Are you DNR?: No Advance Directives: No Advance Directives Information Provided: Yes Nutrition Risks: No Nutritional Risk service: Yes Current occupational status: employed Current occupation: [employer] Current occupational exposures/hazards: Yes Cognitive needs: No Hearing needs: No Vision needs: No Meds Allergies Allergy/AdvReac Type Severity Reaction Status Date / Time No Known Allergies Allergy Verified 05/23/24 14:15 [No Known Allergies*] Home Medications ?Medication ?Instructions ?Recorded ?Confirmed ?Last Taken ?Type duloxetine 40 mg capsule,delayed 40 mg PO DAILY 02/13/24 05/20/24 Unknown History release Exam Airway Mallampati Class: I TM Dist: <=3cm Neck ROM: Full Loose/Missing/Broken Teeth: No Heart: ok Lungs: ok Assessment and Plan Assessment Anesthesia Assessment: Anesthesia Plan Discussed Final Anesthetic Review NPO: Yes ASA Class: II Final Preanesthetic Review: No Changes in Pt Med Stat, Meds/Allgs Chart Reviewed, Consent Obtained/Reviewed and Anes Risks/Benef Reviewed Patient Risk: Intermediate Procedure Risk: Low Anesthetic Plan Anesthetic Plan: GA and Agree w/ Assess. and Plan Disposition: Standard PACU
[2024-06-02 13:11] VITALS: BP 140/81; PULSE 80; RESP 20; TEMP 36.1; O2SAT 97; BMI 32.5
[2024-06-02] MEDS: Lactated Ringers 1,000 ML 100 ML IVCONT (13:38)
--- NOTE | 2024-06-02 14:55 | MHC.SHP ---
Pre-Procedural Eval Section A - 24 Hr Update-Section A only Date of Service: 06/02/24 The patient is an INPATIENT: No Changes since office visit: No Cold of Flu in the past 2 weeks, No New Medical Problems, No Changes in Medication and No Patient answered all questions The patient has been examined within 24 hours of the surgical procedure. The History & Physical has been completed within 30 days and I have reviewed it.: Yes Section B - Complete if H&P > 30 days Chief Complaint: Interstitial cystitis (chronic) without hematuria Allergies: Allergies Allergy/AdvReac Type Severity Reaction Status Date / Time No Known Allergies Allergy Verified 05/23/24 14:15 [No Known Allergies*] Plan Diagnosis/Plan: Unchanged (Cystoscopy, bladder biopsy, fulguration, hydrodistention) I have reviewed the history and physical and performed a pertinent physical examination on my patient. No changes have occurred unless specified. Time Spent With Patient Time: Total time managing care of this patient today ____ minutes.
--- NOTE | 2024-06-02 16:44 | W.PM.OPN ---
Operative Note Operative Note Date of Service: 06/02/24 Narrative: PreOperative Diagnosis: Interstitial cystitis with pelvic pain Post Operative Diagnosis: Interstitial cystitis with pelvic pain Procedure: Hydrodistention, bladder biopsy fulguration Surgeon: Dr Kirill Cisneros Anesthesia: General Indications for procedure: Initial presentation with urgency and frequency. Waking 5 times at night. Unable sleep more than 1 hour. Cystoscopy in office suggestive of interstitial cystitis. Procedure: After informed consent was verified the patient was brought to the operating room and placed in a supine position. Anesthesia was administered per protocol. The patient was placed in a modified dorsal lithotomy position and prepped and draped in sterile fashion. Safety pause time-out was observed. Antibiotics being given. A 22 Polish cystoscope was used to empty the bladder. A mixture of bupivacaine lidocaine gel 20 cc was instilled into the bladder and allowed to sit for 2-3 minutes. A belladonna and opiate rectal suppository was placed. Hydrodistention of the bladder was performed. The bladder was filled and allowed to sit for 2 minutes. Filling was from a height of 1 m. On the 1st fill there was 400 cc within the bladder. Cystoscopy revealed glomerulations consistent with interstitial cystitis. There appeared to be small areas of ulceration on posterior wall of bladder Second filling of the bladder was performed in similar fashion. Bladder biopsies were performed and fulguration used for control. Areas of ulceration were fulgurated. Volume was approximately 500 cc. Terminal hematuria noted. The the bladder was emptied. The patient tolerated procedure well was extubated in operating room transferred in stable condition to the recovery area. Appropriate postprocedure pain medication was provided. Pathology: Biopsies Drains: None
[2024-06-02 16:52] VITALS: BP 141/88; PULSE 86; RESP 16; TEMP 36.8; O2SAT 94
[2024-06-02 16:57] VITALS: BP 134/89; PULSE 77; RESP 16; O2SAT 95
[2024-06-02] MEDS: Phenazopyridine HCL 100 MG TABLET PO (16:59)
[2024-06-02 17:02] VITALS: BP 148/90; PULSE 76; RESP 16; O2SAT 95
[2024-06-02 17:07] VITALS: BP 141/92; PULSE 73; RESP 16; O2SAT 97
[2024-06-02] MEDS: Acetaminophen 325 MG TABLET 650 MG PO (17:14)
[2024-06-02 17:22] VITALS: BP 150/97; PULSE 76; RESP 18; TEMP 36.8; O2SAT 97
--- NOTE | 2024-06-02 17:31 | HO.POSTANES ---
Post Anesthesia Evaluation Post Anesthesia Evaluation Date of Service: 06/02/24 Vital Signs: Vital Signs Temp Pulse Resp BP Pulse Ox O2 Del Method 06/02/24 17:22 98.2 F 76 18 150/97 H 97 Room Air 06/02/24 17:07 73 16 141/92 H 97 Room Air 06/02/24 17:02 76 16 148/90 H 95 Room Air 06/02/24 16:57 77 16 134/89 95 Room Air 06/02/24 16:52 98.2 F 86 16 141/88 H 94 Room Air 06/02/24 13:11 96.9 F 80 20 140/81 H 97 Room Air, Oxymask Anesthesia: General LMA Mental Status: Awake Pain Control: Satisfactory Nausea/Vomiting: None Hydration: Adequate Anesthesia-Related Issues: No Anes. Related Issues
== END 2024-06-02 17:37 | disposition home or self-care (01) ==
PROVIDERS: PCP Nurse Practitioner Family; Visit Provider Urology
PROC: (CPT 52260; principal; 2024-06-02 12:20)
DX: N30.10 Interstitial cystitis (chronic) without hematuria (principal); R10.2 Pelvic and perineal pain; I10 Essential (primary) hypertension; E78.5 Hyperlipidemia, unspecified; K22.70 Barrett's esophagus without dysplasia; Z98.890 Other specified postprocedural states; F17.210 Nicotine dependence, cigarettes, uncomplicated
CPT/HCPCS: 52260; 52204; 88305; J1100; J1956; J2250; J2405; J2704; J3010

== ENCOUNTER → 2024-06-02 08:48 | Outpatient (BNV) | payer BC, SELFPAY | PROVIDERS: PCP Nurse Practitioner Family; Visit Provider Urology | DX: N30.10 Interstitial cystitis (chronic) without hematuria (principal); R10.2 Pelvic and perineal pain | CPT/HCPCS: 52204; 52260 ==

== ENCOUNTER 2024-06-09 09:08 | Outpatient (AMB) | payer BC, SELFPAY ==
--- NOTE | 2024-06-09 09:08 | MHC.OFFVIS ---
Vital Signs 06/09/24 09:21 Height 6 ft Weight 244 lb BMI 33.1 BP 124/78 Blood Pressure Location Rt brachial Position Sitting Pulse 67 Intake Visit Reasons: LLQ pain, previous hernia repair 2004 Intake Note: Patient is seen in office for evaluation and treatment of LLQ pain, previous hernia repair 2004. Pt c/o: reports LLQ pain, reports no bulge, reports constipation. Office Support Associate Required: No Accompanied by: Self / Same As Patient Allergies No Known Allergies [No Known Allergies*] Allergy (Verified 06/09/24 09:20) Medication List - Last Reconciled 06/09/24 by Jose Perkins MD amitriptyline 25 mg PO BEDTIME 30 days atorvastatin 20 mg PO BEDTIME 90 days cholecalciferol (vitamin D3) 50 mcg PO DAILY docusate sodium 100 mg PO BEDTIME duloxetine 40 mg PO DAILY gabapentin 600 mg (2 x 300 mg) PO BID 30 days gabapentin 300 mg PO BEDTIME 30 days lisinopril 5 mg PO DAILY lorazepam 1 mg PO ONCE PRN 1 day omeprazole 40 mg PO DAILY oxycodone 5 mg PO Q8H PRN 5 days phenazopyridine (Pyridium) 100 mg PO TID PRN 4 days tamsulosin 0.4 mg PO BEDTIME 30 days HPI HPI LLQ pain, previous hernia repair 2005: Details: 59-year-old male referred for left groin pain. He states that he had initially noted some discomfort on the left groin area and the suprapubic area for about over 2 years now. He says that this had been more of an annoyance before. He says that this seems to have worsened with associated burning with urination. He says that his pain would extend through the left thigh as well He had been recently diagnosed to have interstitial cystitis and we will be seeing his urologist next week about this. He did have a history of a left inguinal hernia repair in 2004. He denies any palpable mass on the area of the repair. He admits to being a smoker and smokes about 1 pack every 3 days. [facility] Medical History Chambers's esophagus determined by endoscopy HTN (hypertension) Dyslipidemia History of pneumonia History of depression GERD (gastroesophageal reflux disease) Anxiety Surgical History Hx of colonoscopy History of elbow surgery Hx of appendectomy Hx of inguinal hernia repair Hx of cholecystectomy Family History Father Lung cancer Maternal Aunt Breast cancer Maternal Aunt Breast cancer Mother CHF (congestive heart failure) Brother Heart attack HTN (hypertension) Maternal Grandfather Diabetes Brother HTN (hypertension) Social History Housing: House Are you a primary direct support professional caregiver to a significant other at home: No Do you presently have visiting nurse or other home services: No Alcohol intake: current Alcohol intake frequency: does not drink Alcohol type: hard liquor Patient Tobacco Use Status: Current someday Tobacco user Tobacco use type: Cigarette e-Cigarette/Vaping Use: Never Used Second Hand Smoke Exposure: No service: Yes Current occupational status: employed Current occupation: [employer] Current occupational exposures/hazards: Yes Cognitive needs: No Hearing needs: No Vision needs: No Review of Systems Const Denies chills and Denies fever(s) Card Denies chest pain, Denies dyspnea and Denies dyspnea on exertion Resp Denies cough, Denies dyspnea and Denies dyspnea on exertion GI Denies hematochezia and Denies change in bowel habits Denies hematuria, Denies difficulty urinating and Reports dysuria Musc Denies back pain and Denies limited range of motion Neuro Denies focal weakness and Denies convulsions Psych Denies depression and Denies mood swings Physical Exam Vital Signs: Last Vital Signs Pulse 67 06/09/24 09:21 BP 124/78 06/09/24 09:21 BMI result Body Mass Index 33.1 Const General: comfortable and no acute distress Orientation/consciousness: patient oriented x3 Neck Neck: Yes no lymphadenopathy Resp Auscultation: clear to auscultation bilaterally Cardio Rhythm: regular rhythm GI Other: No palpable mass on the left groin area Palpation (GI): Soft to palpation, nontender and no guarding Neuro General: patient oriented x3 Assessment & Plan Assessment & Plan (1) LLQ abdominal pain: Code(s): R10.32 - Left lower quadrant pain Category: Medical Plan: He describes pain and left groin area and the suprapubic area as well. I have reviewed his CAT scan from March,. This does not reveal any recurrent hernia. There was no evidence of any pathology in the area. He does have a diagnosis of interstitial cystitis and this may be contributory to his problem. I did tell him that if his pain does not improve with treatment of his cystitis, he is welcome to return to the office to be re-evaluated He also has an umbilical hernia, fat containing, about 1.5 cm in size and reducible. I explained to him the option of repair. He says he will call the office if he decides to proceed. Coding Level of Care Code New Pt Level 3 (87977) Diagnoses LLQ abdominal pain R10.32
[2024-06-09 09:21] VITALS: BP 124/78; PULSE 67; BMI 33.1
== END 2024-06-09 09:30 | disposition home or self-care (01) ==
PROVIDERS: PCP Nurse Practitioner Family; Visit Provider Surgery
DX: R10.32 Left lower quadrant pain (principal)
CPT/HCPCS: 99203

== ENCOUNTER → 2024-06-09 09:08 | Outpatient (BNVA) | payer BC, SELFPAY | PROVIDERS: PCP Nurse Practitioner Family; Visit Provider Surgery ==

== ENCOUNTER 2024-06-17 15:09 | Outpatient (AMB) | payer BC, SELFPAY ==
--- NOTE | 2024-06-17 15:06 | A.OFFVIS_ITS ---
Intake Visit Reasons: Bladder bx results Intake Note: Patient is present for BLADDER BX RESULTS Urology Medication:PYRIDIUM, TAMSULOSIN Antibiotic Allergy:NONE Blood Thinner:NONE Occupational Health Nurse Required: No Allergies No Known Allergies [No Known Allergies*] Allergy (Verified 06/17/24 15:06) HPI Comments Details: Too is a pleasant male. He is a patient of Dr. Ochoa. He is seen for the following urologic conditions - urinary frequency and urgency Telemedicine Evaluation 15 min Consultation [employer] Bello Video Follow-up from bladder biopsy Confirm acute and chronic inflammation Primary issue currently is nocturia waking every hour Will trial interstitial cystitis medications Chronic cystitis with urgency and frequency Biopsy 06/17 Prostate volume 30 cc 2 month follow-up 10/15--0.4, 08/15 0.3, 08/16 0.4, 02/14 0.4 Trial Myrbetriq PENDING SALE TO [facility] Medical History Chambers's esophagus determined by endoscopy HTN (hypertension) Dyslipidemia History of pneumonia History of depression GERD (gastroesophageal reflux disease) Anxiety Surgical History Hx of colonoscopy History of elbow surgery Hx of appendectomy Hx of inguinal hernia repair Hx of cholecystectomy Family History Father Lung cancer Maternal Aunt Breast cancer Maternal Aunt Breast cancer Mother CHF (congestive heart failure) Brother Heart attack HTN (hypertension) Maternal Grandfather Diabetes Brother HTN (hypertension) Social History Housing: House Are you a primary managed care manager to a significant other at home: No Do you presently have visiting nurse or other home services: No Alcohol intake: current Alcohol intake frequency: does not drink Alcohol type: hard liquor Patient Tobacco Use Status: Current someday Tobacco user Tobacco use type: Cigarette e-Cigarette/Vaping Use: Never Used Second Hand Smoke Exposure: No service: Yes Current occupational status: employed Current occupation: [employer] Current occupational exposures/hazards: Yes Cognitive needs: No Hearing needs: No Vision needs: No Review of Systems Const All systems reviewed & are unremarkable except as noted in HPI and below Reports no additional complaints Resp Reports no additional complaints GI Reports no additional complaints Reports as per HPI Musc Reports no additional complaints Physical Exam Telemedicine evaluation Appropriate responses Regular breathing rate and rhythm HEENT Head: Yes normal to inspection Ears: hearing grossly normal bilaterally Eyes General: appearance normal, both eyes and all related structures Neck Neck: Yes normal visual inspection Chest Chest palpation & inspection: normal inspection of the chest Resp Effort & Inspection: normal respiratory effort and able to speak in complete sentences Telehealth Telehealth Telehealth Platform: [employer] Location of provider rendering services: practice address Location of patient: address on file Patient Identification confirmed using: Name, : Yes Telehealth method: video Patient verbally consented to treatment: Yes Patient verbally consented to billing insurance company: Yes Patient informed of any privacy concerns related to visit: Yes Minutes spent on Phone/Video with Pt.: 15 Assessment & Plan Assessment & Plan (1) Urinary urgency: Code(s): R39.15 - Urgency of urination Category: Medical (2) Urinary frequency: Code(s): R35.0 - Frequency of micturition Category: Medical (3) Lower urinary tract symptoms: Code(s): R39.9 - Unspecified symptoms and signs involving the genitourinary system Category: Medical (4) Chronic prostatitis: Code(s): N41.1 - Chronic prostatitis Category: Medical Plan Trial Myrbetriq Medications: New mirabegron ER 25 mg PO DAILY 30 tabs 1RF 30 days R35.0 - Frequency of micturition, N32.81 - Overactive bladder Patient Instructions: Imaging studies, laboratory and physical exam results were discussed and reviewed in detail. No major barriers to patient understanding were identified. An opportunity to ask questions regarding the treatment plan was provided. All questions were answered. The patient expressed understanding and agreement with the above treatment plan. The patient is aware they should contact our office by phone for worsening of their current condition or the appearance of new urologic symptoms. Compliance is encouraged with any medications and followup testing that is ordered. It is a privilege to participate in the urologic care of your patient. If you have any questions or concerns regarding treatment for the above conditions, or other urologic issues, please do not hesitate to contact me. The office telephone contact is [phone]. This note is constructed using voice recognition software. While every effort has been made to ensure accuracy bottling attendant errors may have been included. Yours sincerely, Dr Kirill Cisneros MD, CATA [facility] - Urology Providers of Expert, Compassionate Care for the Genitourinary System Coding Level of Care Code Tele Est Pt Level 4 (94382) Diagnoses Urinary urgency R39.15 Urinary frequency R35.0 Lower urinary tract symptoms R39.9 Chronic prostatitis N41.1
== END 2024-06-17 16:30 | disposition home or self-care (01) ==
LOC: HO.HUSH 15:09
PROVIDERS: PCP Nurse Practitioner Family; Visit Provider Urology
DX: R39.15 Urgency of urination (principal); R35.0 Frequency of micturition; R39.9 Unspecified symptoms and signs involving the genitourinary system; N41.1 Chronic prostatitis
CPT/HCPCS: 99214

== ENCOUNTER → 2024-06-17 15:09 | Outpatient (BNVA) | payer BC, SELFPAY | PROVIDERS: PCP Nurse Practitioner Family; Visit Provider Urology ==

== ENCOUNTER 2024-08-01 10:00 | Outpatient (AMB) | payer BC, SELFPAY ==
--- NOTE | 2024-08-01 10:08 | MHC.OFFVIS ---
Intake Visit Reasons: 6w/UA/Med Review(Myrbetriq) Intake Note: Patient is Present for Follow Up Urinalysis/Med Review Urology Medication:Myrbetriq, Tamsulosin Antibiotic Allergies: None Blood Thinners: Recent PSA: 07/2023 0.35 Last PVR:21ml Todays PVR: 37ml Patient reports that medications are working well but does have days where he feels like his bladder is not fully empty states it depends on the day Analytical Chemist Required: No Accompanied by: Self / Same As Patient Allergies No Known Allergies [No Known Allergies*] Allergy (Verified 06/17/24 15:06) HPI Comments Details: Zachary is a pleasant 59-year-old male patient of Dr. Owens. He has a past medical history of anxiety, dyslipidemia, GERD, depression, hypertension, and Chambers's esophagus. He presents to the office today for follow-up regarding his lower urinary tract symptoms and chronic prostatitis. Of note, during last office visit prostate massage was performed and sent for microgen. Microgen noted no growth. Discussed at length possible chronic prostatitis. Patient with previous treatment of prostatitis however continues with ongoing lower urinary tract symptoms. He reports having followed up with his PCP for ongoing left-sided abdominal pain and pressure has been experiencing and believes this is related to his previous mesh/ inguinal hernia procedure. He continues to report feeling of incomplete bladder emptying and straining with urination. In office urinalysis results reviewed with the patient today. PVR 210ml's. Discussed causes and affects of incomplete bladder emptying. HIRO noted boggy prostate no nodules or masses palpated. Previous workup has a retroperitoneal ultrasound noting bilateral kidneys with no focal parenchymal lesions or hydronephrosis. Echogenic foci without winkle artifact or shadowing may reflect vascular reflectors. No definite nephrolithiasis. The bladder well distended and normal. Bilateral ureteral jets are demonstrated. Prevoid bladder volume is 320 mL. Postvoid bladder volume is 10.9 mL. The prostate volume is 31.6 mL. He reports noting symptoms to be worse after consumption of alcohol as well as caffeine. In review of patient's chart PSAs are as follows: 10/15--0.4, 08/15 0.3, 08/16 0.4, 02/14 0.4 Patient otherwise denies any other issues or concerns at this time. Discussed at length potential causes of lower urinary tract symptoms patient is experiencing. Discussed at length chronic prostatitis. Discussed in office cystoscopy. Discussed and stressed the importance of drinking plenty of water daily. He otherwise offers no other issues or concerns at this time. Acute and chronic cystitis [facility] Medical History Chambers's esophagus determined by endoscopy HTN (hypertension) Dyslipidemia History of pneumonia History of depression GERD (gastroesophageal reflux disease) Anxiety Surgical History Hx of colonoscopy History of elbow surgery Hx of appendectomy Hx of inguinal hernia repair Hx of cholecystectomy Family History Father Lung cancer Maternal Aunt Breast cancer Maternal Aunt Breast cancer Mother CHF (congestive heart failure) Brother Heart attack HTN (hypertension) Maternal Grandfather Diabetes Brother HTN (hypertension) Social History Housing: House Are you a primary home care specialist to a significant other at home: No Do you presently have visiting nurse or other home services: No Alcohol intake: current Alcohol intake frequency: does not drink Alcohol type: hard liquor Patient Tobacco Use Status: Current someday Tobacco user Tobacco use type: Cigarette e-Cigarette/Vaping Use: Never Used Second Hand Smoke Exposure: No service: Yes Current occupational status: employed Current occupation: [employer] Current occupational exposures/hazards: Yes Cognitive needs: No Hearing needs: No Vision needs: No Office Procedures Post Void Residual Post Residual Void Post Void Residual (PVR): 37 15662-Purc Void Residual by ultrasound Results AMB Urinalysis, Automated UA Leukoctes 0 Marta/uL Last Edit by JERE Leavitt on 08/01/24 10:18 UA Nitrite Negative Last Edit by JERE Leavitt on 08/01/24 10:18 UA Urobilinogen 0.2 mg/dL Last Edit by JERE Leavitt on 08/01/24 10:18 UA Protein 0 mg/dL Last Edit by JERE Leavitt on 08/01/24 10:18 UA pH 7.0 Last Edit by JERE Leavitt on 08/01/24 10:18 UA Blood 0 Jevon/uL Last Edit by Radha Vyas, RMA on 08/01/24 10:18 UA Specific Lamona 1.010 Last Edit by Radha Vyas, RMA on 08/01/24 10:18 UA Ketone Negative Last Edit by Radha Vyas, RMA on 08/01/24 10:18 UA Bilirubin 0 mg/dL Last Edit by Radha Vyas, RMA on 08/01/24 10:18 UA Glucose 0 mg/dL Last Edit by Radha Vyas, RMA on 08/01/24 10:18 Results Reviewed Results Reviewed: Laboratory Last Values Urine pH (Auto) 7.0 08/01/24 10:14 Specific [place] (Auto) 1.010 08/01/24 10:14 Urine Protein (Auto) 0 mg/dL 08/01/24 10:14 Glucose (UA)(Auto) 0 mg/dL 08/01/24 10:14 Urine Ketones (Auto) Negative 08/01/24 10:14 Urine Blood (Auto) 0 Jevon/uL 08/01/24 10:14 Urine Nitrite (Auto) Negative 08/01/24 10:14 Urine Bilirubin (Auto) 0 mg/dL 08/01/24 10:14 Urine Urobilinogen (Auto) 0.2 mg/dL 08/01/24 10:14 Leukocyte Esterase (Auto) 0 Marta/uL 08/01/24 10:14 Assessment & Plan Assessment & Plan Orders: Orders AMB Urinalysis Automated 08/01/24 Z13.9 - Encounter for screening, unspecified AMB Post Void Residual by ultrasound 08/01/24 R39.9 - Unspecified symptoms and signs involving the genitourinary system Medications: New trimethoprim 100 mg PO DAILY 90 tabs 1RF 90 days N30.10 - Interstitial cystitis (chronic) without hematuria, R33.9 - Retention of urine, unspecified Changed From tamsulosin 0.4 mg PO BEDTIME 30 days 30 caps 2RF R35.1 - Nocturia, N40.1 - Benign prostatic hyperplasia with lower urinary tract symptoms To tamsulosin 0.4 mg PO BEDTIME 90 caps 1RF 90 days R35.1 - Nocturia, N40.1 - Benign prostatic hyperplasia with lower urinary tract symptoms From mirabegron ER 25 mg PO DAILY 30 days 30 tabs 1RF R35.0 - Frequency of micturition, N32.81 - Overactive bladder To mirabegron ER 25 mg PO DAILY 90 tabs 1RF 90 days R35.0 - Frequency of micturition, N32.81 - Overactive bladder From amitriptyline 25 mg PO BEDTIME 30 days 30 tabs 0RF N30.10 - Interstitial cystitis (chronic) without hematuria To amitriptyline 25 mg PO BEDTIME 90 tabs 1RF 90 days N30.10 - Interstitial cystitis (chronic) without hematuria Refilled oxycodone Partial Fill upon patient request. 5 mg PO Q8H PRN 20 tabs 0RF pain 5 days N30.10 - Interstitial cystitis (chronic) without hematuria Discontinued gabapentin Discontinued Reason: Patient Completed Course 300 mg PO BEDTIME 30 days 30 caps 0RF N30.10 - Interstitial cystitis (chronic) without hematuria, R23.2 - Flushing, T50.905A - Adverse effect of unspecified drugs, medicaments and biological substances, initial encounter Coding CPT Codes Post Residual Void - PVR CPT Code: 09322-Eerm Void Residual by ultrasound ([id number])
== END 2024-08-01 11:03 | disposition home or self-care (01) ==
PROVIDERS: PCP Nurse Practitioner Family; Visit Provider Urology
DX: Z13.9 Encounter for screening, unspecified (principal)

== ENCOUNTER → 2024-08-01 10:00 | Outpatient (BNVA) | payer BC, SELFPAY | PROVIDERS: PCP Nurse Practitioner Family; Visit Provider Urology | DX: N41.1 Chronic prostatitis (principal); N30.10 Interstitial cystitis (chronic) without hematuria; N40.1 Benign prostatic hyperplasia with lower urinary tract symptoms; R35.1 Nocturia; R35.0 Frequency of micturition; R33.8 Other retention of urine; N32.81 Overactive bladder; Z79.899 Other long term (current) drug therapy | CPT/HCPCS: 51798; 81003 ==

== ENCOUNTER 2024-10-13 07:43 | Outpatient (AMB) | payer BC, SELFPAY ==
[2024-10-13 08:09] VITALS: BP 128/90; PULSE 98; O2SAT 98; BMI 33.4
--- NOTE | 2024-10-13 08:09 | MHC.OFFVIS ---
Vital Signs 10/13/24 08:09 Height 6 ft Weight 246 lb 0.574 oz BMI 33.4 BP 128/90 H Blood Pressure Location Rt brachial Position Sitting Pulse 98 Pulse Source Pulse Oximeter Pulse Oximetry (%) 98 Oxygen Delivery Method Room Air Intake Visit Reasons: 8 month follow up Intake Note: ESTABLISHED PATIENT Reason; ~ 8 mos FUV. Changes/concerns? No significant concerns (GI) Allergies No Known Allergies [No Known Allergies*] Allergy (Verified 10/13/24 08:10) HPI HPI 8 month follow up: Details: LAST VISIT Epigastric abdominal pain Constipation Chambers's esophagus determined by endoscopy Plan Continue omeprazole daily. Avoid dietary triggers and late night snacking. Return in 8 months to discuss going for upper endoscopy. Patient may take senna and Colace to help him move his bowels. Avoid straining. Increase fiber. Staying upright for minimum 3 hours after meals discussed with patient. He is agreeable to this plan and verbalizes understanding of instructions. He was given the opportunity to ask questions and all questions answered. ? Thank you for allowing me to participate in his care Medications New docusate sodium 100 mg PO BEDTIME 90 caps 3RF K59.00 TODAY'S VISIT: Patient is here today for follow-up. Patient reports to be doing fairly well. Continues to take omeprazole in his symptoms are suppressed. However patient does admit when he forgets to take medication he will have acid reflux and epigastric pain postprandially. Patient denies dyspepsia, dysphagia or odynophagia. Patient is moving his bowels well. He continues to take docusate sodium and senna daily. Denies melena, hematochezia, unintentional weight loss or ribbon like stools. 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 Will be sent for endoscopy to re-evaluate. Patient had normal colonoscopy in 2016. Next screening in October of 2016. Patient was diagnosed with interstitial cystitis, follows up with Urology. [facility] Medical History Chambers's esophagus determined by endoscopy HTN (hypertension) Dyslipidemia History of pneumonia History of depression GERD (gastroesophageal reflux disease) Anxiety Surgical History Hx of colonoscopy History of elbow surgery Hx of appendectomy Hx of inguinal hernia repair Hx of cholecystectomy Family History Father Lung cancer Maternal Aunt Breast cancer Maternal Aunt Breast cancer Mother CHF (congestive heart failure) Brother Heart attack HTN (hypertension) Maternal Grandfather Diabetes Brother HTN (hypertension) Social History Housing: House Are you a primary manager long term care to a significant other at home: No Do you presently have visiting nurse or other home services: No Alcohol intake: current Alcohol intake frequency: does not drink Alcohol type: hard liquor Patient Tobacco Use Status: Current someday Tobacco user Tobacco use type: Cigarette e-Cigarette/Vaping Use: Never Used Second Hand Smoke Exposure: No service: Yes Current occupational status: employed Current occupation: [employer] Current occupational exposures/hazards: Yes Cognitive needs: No Hearing needs: No Vision needs: No Review of Systems Const Denies weight gain and Denies weight loss ENT Reports no additional complaints, Denies dysphagia and Denies odynophagia Card Reports no additional complaints Resp Reports no additional complaints GI Reports abdominal pain (Pelvic), Denies belching, Denies melena, Denies bloating, Denies change in bowel habits, Reports constipation (Occasional), Denies dysphagia, Denies excessive flatus, Denies dyspepsia, Reports heartburn (Occasional if forgets to take omeprazole), Denies diarrhea, Denies loose stools, Denies nausea, Denies odynophagia and Denies vomiting Reports no additional complaints and Reports other (Low abdominal pain, diagnosed with interstitial cystitis) Musc Reports no additional complaints Neuro Reports no additional complaints Psych Reports no additional complaints Endo Reports no additional complaints Physical Exam Vital Signs: Last Vital Signs Pulse 98 10/13/24 08:09 BP 128/90 H 10/13/24 08:09 Pulse Ox 98 10/13/24 08:09 Oxygen Delivery Method Room Air 10/13/24 08:09 BMI result Body Mass Index 33.4 Const General: healthy appearing and no acute distress Nutritional Appearance: obese Orientation/consciousness: patient oriented x3 Resp Effort & Inspection: normal respiratory effort, able to speak in complete sentences, no tracheal deviation and symmetric chest movement Auscultation: clear to auscultation bilaterally Cardio Rate: regular rate GI Inspection: Yes normal to inspection, No distended and Yes obesity Palpation (GI): Soft to palpation, not firm, nontender and No hepatosplenomegaly present Auscultation: normal bowel sounds General: Yes no CVA tenderness Back/Spine/Pelvis Back: no CVA tenderness Skin General skin exam: elasticity normal, turgor normal and dry skin Neuro General: patient oriented x3 Psych Appearance: grossly normal Mental Status: mental status grossly normal Assessment & Plan Assessment & Plan (1) Epigastric abdominal pain: Code(s): R10.13 - Epigastric pain Category: Medical (2) Constipation: Code(s): K59.00 - Constipation, unspecified Category: Medical Qualifiers: Constipation type: slow transit constipation Qualified Code(s): K59.01 - Slow transit constipation (3) Chambers's esophagus determined by endoscopy: Code(s): K22.70 - Chambers's esophagus without dysplasia Category: Medical (4) Chronic interstitial cystitis: Code(s): N30.10 - Interstitial cystitis (chronic) without hematuria Category: Medical (5) LLQ abdominal pain: Code(s): R10.32 - Left lower quadrant pain Category: Medical (6) GERD (gastroesophageal reflux disease): Code(s): K21.9 - Gastro-esophageal reflux disease without esophagitis Qualifiers: Esophagitis presence: esophagitis presence not specified Qualified Code(s): K21.9 - Gastro-esophageal reflux disease without esophagitis Plan Patient will continue taking omeprazole daily. Avoid dietary triggers and late night snacking. Staying upright for minimum 3 hours after meals discussed with patient. Patient will follow-up after endoscopy. Message sent to surgical schedulers to book procedure for patient. Diagnosed with Barretts on last endoscopy in 2021. Continue senna and Colace daily. Increase fiber intake. Increase fluid intake and activity to promote better bowel motility. Follow-up after endoscopy. Patient will call our office if he will have any GI concerning symptoms. He is agreeable this plan and verbalizes understanding of instructions. She was given the opportunity to ask questions and all questions answered. Thank you for allowing me to participate in his care Medications: New sennosides (senna) 8.6 mg PO BEDTIME 30 caps 3RF Refilled docusate sodium 100 mg PO BEDTIME 90 caps 3RF K59.00 - Constipation, unspecified Coding Level of Care Code Est Pt Level 4 (56320) Complex EM visit Add On G2211 Diagnoses Epigastric abdominal pain R10.13 Slow transit constipation K59.01 Constipation type: slow transit constipation Chambers's esophagus determined by endoscopy K22.70 Chronic interstitial cystitis N30.10 LLQ abdominal pain R10.32 Gastroesophageal reflux disease, unspecified whether esophagitis present K21.9 Esophagitis presence: esophagitis presence not specified Time Spent (min) 35 Comment 25 minutes spent with patient and additional 10 minutes spent reviewing his records
== END 2024-10-13 08:35 | disposition home or self-care (01) ==
PROVIDERS: PCP Nurse Practitioner Family; Visit Provider Nurse Practitioner Family
DX: R10.13 Epigastric pain (principal); K59.01 Slow transit constipation; K22.70 Barrett's esophagus without dysplasia; N30.10 Interstitial cystitis (chronic) without hematuria; R10.32 Left lower quadrant pain; K21.9 Gastro-esophageal reflux disease without esophagitis
CPT/HCPCS: 99214

== ENCOUNTER → 2024-10-13 07:43 | Outpatient (BNVA) | payer BC, SELFPAY | PROVIDERS: PCP Nurse Practitioner Family; Visit Provider Nurse Practitioner Family ==

== ENCOUNTER 2024-10-17 06:44 | Outpatient (REF) | payer BC, SELFPAY ==
[2024-10-17 12:08] LABS: Alanine Aminotransferase 38 U/L (0-40); Albumin Level 4.2 g/dL (3.5-5.0); Anion Gap 10 (12-20); Aspartate Amino Transferase 35 U/L (5-37); Bilirubin Total 0.5 mg/dL (0.0-1.0); Blood Urea Nitrogen 10 mg/dL (9-16); Calcium 9.2 mg/dL (8.4-10.2); Carbon Dioxide 29 mmol/L (22-29); Chloride 104 mmol/L (96-108); Cholesterol 140 mg/dL (<200); Estimated Glomerular Filt Rate > 60; Glucose Fasting 97 mg/dL (60-99); HDL Cholesterol 37 mg/dL (>40); LDL Cholesterol Calculated 69 mg/dL (<100); Potassium 4.4 mmol/L (3.3-5.1); Sodium 139 mmol/L (135-145); Total Protein 7.5 g/dL (6.5-8.0); Triglycerides 171 mg/dL (<150)
[2024-10-17 14:19] LABS: Alkaline Phosphatase 86 U/L (39-117)
== END 2024-10-17 06:45 | disposition home or self-care (01) ==
LOC: HO.HMGCLDS 06:44
PROVIDERS: PCP Nurse Practitioner Family; Visit Provider Nurse Practitioner Family
DX: E78.5 Hyperlipidemia, unspecified (principal)
CPT/HCPCS: 36415; 80053; 80061

== ENCOUNTER 2024-10-20 12:17 | Outpatient (AMB) | payer BC, SELFPAY ==
[2024-10-20 12:35] VITALS: BP 124/72; PULSE 81; O2SAT 97; BMI 33.3
--- NOTE | 2024-10-20 12:35 | MHC.PC.OV ---
Vital Signs 10/20/24 12:35 Height 6 ft Weight 245 lb 6 oz BMI 33.3 BP 124/72 Blood Pressure Location Rt brachial Position Sitting Pulse 81 Pulse Source Pulse Oximeter Pulse Oximetry (%) 97 Oxygen Delivery Method Room Air Intake Visit Reasons: 5 month follow up Allergies No Known Allergies [No Known Allergies*] Allergy (Verified 10/20/24 12:36) Medication List - Last Reconciled 10/20/24 by JACKIE Hall- amitriptyline 25 mg PO BEDTIME 90 days atorvastatin 20 mg PO BEDTIME 90 days cholecalciferol (vitamin D3) 50 mcg PO DAILY docusate sodium 100 mg PO BEDTIME duloxetine 40 mg PO DAILY gabapentin 600 mg (2 x 300 mg) PO BID 30 days lisinopril 5 mg PO DAILY mirabegron ER 25 mg PO DAILY 90 days omeprazole 40 mg PO DAILY sennosides (senna) 8.6 mg PO BEDTIME tamsulosin 0.4 mg PO BEDTIME 90 days trimethoprim 100 mg PO DAILY 90 days Tobacco use date assessed: 10/20/24 Dental Screening Dental Screen Date: 10/20/24 Did you have a dental visit in the last 12 months?: Yes Did you have a dental problem in the last 6 months where you did not have access to dental care?: No Was dental information given to patient?: Patient has dentist HPI 5 month follow up HPI Details History of Present Illness The patient is a 59-year-old male presenting with a request for a routine physical examination. He reports a history of chronic interstitial cystitis, for which he is currently under the care of a urologist. This condition has been ongoing and is being actively managed. He has no new complaints or recent exacerbations related to this diagnosis. Additionally, he has an umbilical hernia, observed during previous examinations, which currently shows some scabbing. There are no associated problems or acute symptoms related to his hernia noted by the patient during this visit. Health Maintenance - Colon cancer screening is up to date. - PSA test is current and requires no further immediate action. - Regular dermatological follow-up for scalp lesions and potential skin issues. Social History Review of Systems - Constitutional: Denies fevers and chills. - Gastrointestinal: Denies nausea, vomiting, blood in stool, constipation, and diarrhea. - Psychiatric: Denies anxiety, depression, suicidal ideation, and homicidal ideation. - Neurological: Denies headaches. Physical Exam General: Cooperative, healthy appearing, comfortable, no acute distress and well developed Orientation: Patient oriented x3 Limitations: No limitations Head: Normal to inspection Ears: Hearing grossly normal bilaterally Nose: Normal external nose present Face and sinus: Normal facial exam Eyes: Appearance normal, both eyes and all related structures Neck: Normal visual inspection and Yes full ROM Respiratory: Normal respiratory effort and able to speak in complete sentences. Clear to auscultation bilaterally Cardiovascular: Regular rate and rhythm. Normal S1 and S2 GI: Umbilical hernia noted with some scabbing to the superior aspect Skin: Fair skinned, bald with a lot of scalp lesions noted, more macular. Scab to the dorsal aspect of the left thumb. scabbing with small open region to superior umbilical hernia. Neuro: Patient oriented x3 Extremities: Normal to inspection Results Plan - Instruct the use of bacitracin ointment on the umbilical hernia's scabbing area. - Continue regular appointments with the community engagement representative to monitor scalp lesions and other skin concerns. - Maintain follow-up with the urologist for ongoing management of chronic interstitial cystitis. Patient was informed and verbally consented to the use of an ambient scribe for clinic note documentation during this visit. Discussion Notes During the visit, I reviewed the patient's current health status and recent laboratory screenings, noting that his colon and prostate screenings are up to date. We discussed the management plan for his umbilical hernia, and I provided instructions to apply bacitracin to assist with healing (scabbed lesion). The importance of continuous community engagement representative care was emphasized due to the numerous scalp lesions. The patient has no additional concerns or symptoms at this time, and I encouraged him to keep regular follow-up appointments with specialists for his chronic conditions. Patient Instructions - Apply bacitracin to the umbilical hernia as instructed. - Continue attending regular dermatology follow-ups. - Maintain current urology management plan for interstitial cystitis. - Report any new symptoms or concerns as needed. 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 HTN (hypertension) Dyslipidemia History of pneumonia History of depression GERD (gastroesophageal reflux disease) Anxiety Surgical History Hx of colonoscopy History of elbow surgery Hx of appendectomy Hx of inguinal hernia repair Hx of cholecystectomy Family History Father Lung cancer Maternal Aunt Breast cancer Maternal Aunt Breast cancer Mother CHF (congestive heart failure) Brother Heart attack HTN (hypertension) Maternal Grandfather Diabetes Brother HTN (hypertension) Social History Housing: House Are you a primary administrator health care facility to a significant other at home: No Do you presently have visiting nurse or other home services: No Alcohol intake: current Alcohol intake frequency: does not drink Alcohol type: hard liquor Patient Tobacco Use Status: Current someday Tobacco user Tobacco use type: Cigarette e-Cigarette/Vaping Use: Never Used Second Hand Smoke Exposure: No service: Yes Current occupational status: employed Current occupation: [employer] Current occupational exposures/hazards: Yes Cognitive needs: No Hearing needs: No Vision needs: No Questionnaire PHQ-9 Over the last 2 weeks, how often have you been bothered by any of the following problems? 1. Little interest or pleasure in doing things: several days 2. Feeling down, depressed, or hopeless: not at all 3. Trouble falling or staying asleep, or sleeping too much: nearly every day 4. Feeling tired or having little energy: several days 5. Poor appetite or overeating: not at all 6. Feeling bad about yourself - or that you are a failure or have let yourself or your family down: not at all 7. Trouble concentrating on things, such as reading the newspaper or watching television: not at all 8. Moving or speaking so slowly that other people could have noticed. Or the opposite - being so fidgety or restless that you have been moving around a lot more than usual: not at all 9. Thoughts that you would be better off or of hurting yourself in some way: not at all Total score: 5 Depression Screening Interpretation: Negative Depression Screening Done: Yes 47057 - PHQ-9 Billing: Yes Source: Developed by Drs. Stefano Watson, Leilani Corrales, Karlo Barker and colleagues, with an educational gaby from [employer]. Thrive Questionnaire Date Thrive assessed: 10/20/24 I am a: Patient What is your living situation today?: I have a steady place to live Within the past 12 months, did the food you bought not last and you didn't have the money to get more?: Never true Within the past 12 months, did you worry whether your food would run out before you got money to buy more?: Never true Do you have trouble paying for medicines?: No Do you have trouble getting transportation to medical appointments?: No Do you have trouble paying your heating and electricity bill?: No Do you have trouble taking care of your child, family member or friend?: No Do you have trouble with day-to-day activities such as bathing, preparing meals, shopping, managing finances, etc.?: No Are you currently unemployed and looking for a job?: No Are you interested in more education?: No Please select the resources that you would like help with: None Currently or been in a relationship where the following occur: No concerns reported THRIVE Score: 0 AUDIT C Alcohol Use Questionnaire (AUDIT-C) 1. How often do you have a drink containing alcohol?: 2-4 times a month 2. How many drinks containing alcohol do you have on a typical day when you are drinking?: 1 or 2 3. How often do you have six or more drinks on one occasion?: Never Total Score: 2 Score Reviewed/Action Taken: Yes ELSA-7 AMB Questionnaire ELSA-7 Date ELSA - 7 assessed: 10/20/24 Feeling nervous, anxious, or on edge: 0 = Not at all Not being able to stop or control worryin = Not at all Worrying too much about different things: 0 = Not at all Trouble relaxin = Not at all Being so restless that it is hard to sit still: 0 = Not at all Becoming easily annoyed or irritable: 1 = Several days Feeling afraid as if something awful might happen: 0 = Not at all Total ELSA-7 score (0-4 normal; 5-9 mild; 10-14 moderate; 15-21 severe): 1 Source: Developed by Drs. Stefano Watson, Leilani Corrales, Karlo Barker and colleagues, with an educational gaby from [employer]. ELSA-7 Assessment Billing ELSA-7 Assessment Tool: ELSA-7 Assessment 80596 Physical exam (Primary Care) Vital Signs: Last Vital Signs Pulse 81 10/20/24 12:35 BP 124/72 10/20/24 12:35 Pulse Ox 97 10/20/24 12:35 Oxygen Delivery Method Room Air 10/20/24 12:35 BMI result Body Mass Index 33.3 Tobacco/Smoking Status: Tobacco use Status Tobacco use date assessed 10/20/24 10/20/24 12:39 Patient Tobacco Use Status Current someday Tobacco 10/20/24 12:39 Tobacco use type Cigarette 10/20/24 12:39 e-Cigarette/Vaping Use Never Used 10/20/24 12:39 PHQ-9: PHQ-9 Score PHQ-9: Total score 5 10/20/24 13:00 Depression Screening Interpretation: Negative Thrive Assessment: Date of Thrive Assessment Date Thrive assessed 10/20/24 10/20/24 12:39 Currently or been in a relationship where the following occur: No concerns reported Coding Level of Care Code Est Pt Prev Care 40-64y(73885) Diagnoses Physical exam Z00. Screening PSA (prostate specific antigen) Z12.5 Additional Codes ELSA-7 Assessment Billing - ELSA-7 Assessment Tool: ELSA-7 Assessment 71437 ([id number]) PHQ-9 - 08050 - PHQ-9 Billing: Yes ([id number]) Assessment & Plan Assessment & Plan (1) Physical exam: Code(s): Z00.00 - Encounter for general adult medical examination without abnormal findings Category: Medical (2) Screening PSA (prostate specific antigen): Code(s): Z12.5 - Encounter for screening for malignant neoplasm of prostate Category: Medical Plan . Orders: Orders Complete Blood Count Auto Diff Today Z00.00 - Encounter for general adult medical examination without abnormal findings Comprehensive [place]. Panel Fast Today Z00.00 - Encounter for general adult medical examination without abnormal findings TSH reflex Free T4 Today Z00.00 - Encounter for general adult medical examination without abnormal findings UA CC w/rflx Micro + Cult Today Z00.00 - Encounter for general adult medical examination without abnormal findings Lipid Panel Today Z00.00 - Encounter for general adult medical examination without abnormal findings Prostate Specific Antigen Scr Today Z12.5 - Encounter for screening for malignant neoplasm of prostate Medications: Refilled gabapentin 600 mg (2 x 300 mg) PO BID 30 days 120 caps 0RF
== END 2024-10-20 13:20 | disposition home or self-care (01) ==
PROVIDERS: PCP Nurse Practitioner Family; Visit Provider Nurse Practitioner Family
DX: Z00.00 Encounter for general adult medical examination without abnormal findings (principal); Z12.5 Encounter for screening for malignant neoplasm of prostate

== ENCOUNTER → 2024-10-20 12:17 | Outpatient (BNVA) | payer BC, SELFPAY | PROVIDERS: PCP Nurse Practitioner Family; Visit Provider Nurse Practitioner Family | DX: Z00.00 Encounter for general adult medical examination without abnormal findings (principal) | CPT/HCPCS: 96127 ==

== ENCOUNTER 2025-01-30 09:56 | Outpatient (AMB) | payer BC, SELFPAY ==
--- NOTE | 2025-01-30 09:56 | MHC.OFFVIS ---
Intake Visit Reasons: 6m follow up Intake Note: Patient is present via telehealth for 6 month follow up Urology Medication:Myrbetriq, Tamsulosin Antibiotic Allergies: None Blood Thinners: [employer] Therapist Required: No Accompanied by: Self / Same As Patient Allergies No Known Allergies [No Known Allergies*] Allergy (Verified 01/30/25 09:57) HPI Comments Details: Too is a pleasant male. He is a patient of Dr. Ochoa. He is seen for the following urologic conditions - chronic prostatitis - lower urinary tract symptoms - interstitial cystitis Six-month follow-up prostatitis management Had been on suppression Amitriptyline 25 mg p.o. q.h.s., 600 mg gabapentin p.o. q.h.s., Myrbetriq 25 mg daily, tamsulosin daily Trimethoprim 100 mg p.o. daily 6m f/u office UA Prostatitis/chronic cystitis Prior Microgen Chronic prostatitis no bacterial growth HIRO with boggy prostate Prior imaging no focal parenchymal lesions or hydronephrosis Prostate volume 30 cc Continues to feel incomplete bladder emptying with urinary urgency 10/15--0.4, 08/15 0.3, 08/16 0.4, 02/14 0.4 PFSH Medical History Chambers's esophagus determined by endoscopy HTN (hypertension) Dyslipidemia History of pneumonia History of depression GERD (gastroesophageal reflux disease) Anxiety Surgical History Hx of colonoscopy History of elbow surgery Hx of appendectomy Hx of inguinal hernia repair Hx of cholecystectomy Family History Father Lung cancer Maternal Aunt Breast cancer Maternal Aunt Breast cancer Mother CHF (congestive heart failure) Brother Heart attack HTN (hypertension) Maternal Grandfather Diabetes Brother HTN (hypertension) Social History Housing: House Are you a primary healthcare specialist to a significant other at home: No Do you presently have visiting nurse or other home services: No Alcohol intake: current Alcohol intake frequency: does not drink Alcohol type: hard liquor Patient Tobacco Use Status: Current someday Tobacco user Tobacco use type: Cigarette e-Cigarette/Vaping Use: Never Used Second Hand Smoke Exposure: No service: Yes Current occupational status: employed Current occupation: [employer] Current occupational exposures/hazards: Yes Cognitive needs: No Hearing needs: No Vision needs: No Review of Systems Const All systems reviewed & are unremarkable except as noted in HPI and below Reports no additional complaints Resp Reports no additional complaints GI Reports no additional complaints Reports as per HPI Musc Reports no additional complaints Physical Exam Telemedicine evaluation Appropriate responses Regular breathing rate and rhythm HEENT Head: Yes normal to inspection Ears: hearing grossly normal bilaterally Eyes General: appearance normal, both eyes and all related structures Neck Neck: Yes normal visual inspection Chest Chest palpation & inspection: normal inspection of the chest Resp Effort & Inspection: normal respiratory effort and able to speak in complete sentences Telehealth Telehealth Telehealth Platform: Hua Kang Location of provider rendering services: practice address Location of patient: address on file Patient Identification confirmed using: Name, : Yes Telehealth method: video Patient verbally consented to treatment: Yes Patient verbally consented to billing insurance company: Yes Patient informed of any privacy concerns related to visit: Yes Assessment & Plan Assessment & Plan (1) Chronic prostatitis: Code(s): N41.1 - Chronic prostatitis Category: Medical (2) Pelvic pain in male: Code(s): R10.2 - Pelvic and perineal pain Category: Medical (3) Lower urinary tract symptoms: Code(s): R39.9 - Unspecified symptoms and signs involving the genitourinary system Category: Medical Plan 6m f/u Medications: New tadalafil [id number] [facility] [id number] Member [id number] 5 mg PO DAILY 90 days 90 tabs 1RF sexual activity N30.10 - Interstitial cystitis (chronic) without hematuria, N32.0 - Bladder-neck obstruction naproxen (Naprosyn) 500 mg PO Q12H 30 days PRN 60 tabs 0RF pain N30.10 - Interstitial cystitis (chronic) without hematuria, S39.91XA - Unspecified injury of abdomen, initial encounter Refilled tamsulosin 0.4 mg PO BEDTIME 90 days 90 caps 1RF N40.1 - Benign prostatic hyperplasia with lower urinary tract symptoms, R35.1 - Nocturia amitriptyline 25 mg PO BEDTIME 90 days 90 tabs 1RF N30.10 - Interstitial cystitis (chronic) without hematuria Patient Instructions: This note is constructed using voice recognition software. While every effort has been made to ensure accuracy quill machine tender errors may have been included. Imaging studies, laboratory and physical exam results were discussed and reviewed in detail. No major barriers to patient understanding were identified. An opportunity to ask questions regarding the treatment plan was provided. All questions were answered. The patient expressed understanding and agreement with the above treatment plan. The patient is aware they should contact our office by phone for worsening of their current condition or the appearance of new urologic symptoms. Compliance is encouraged with any medications and followup testing that is ordered. It is a privilege to participate in the urologic care of your patient. If you have any questions or concerns regarding treatment for the above conditions, or other urologic issues, please do not hesitate to contact me. The office telephone contact is [phone]. Sincerely, Dr Kirill Cisneros MD, [facility] - Urology Compassionate Specialist Care for the Genitourinary System Coding Level of Care Code Tele Est Pt Level 4 (29817) Complex EM visit Add On G2211 Diagnoses Chronic prostatitis N41.1 Pelvic pain in male R10.2 Lower urinary tract symptoms R39.9
== END 2025-01-30 10:35 | disposition home or self-care (01) ==
LOC: HO.HUSH 09:56
PROVIDERS: PCP Nurse Practitioner Family; Visit Provider Urology
DX: N41.1 Chronic prostatitis (principal); R10.2 Pelvic and perineal pain; R39.9 Unspecified symptoms and signs involving the genitourinary system
CPT/HCPCS: 99214

== ENCOUNTER 2025-02-25 09:48 | Day surgery (SDC) | payer BC, SELFPAY ==
--- NOTE | 2025-02-24 10:09 | HO.ANESPROP2 ---
HPI - Anesthesia Eval Consult details Narrative: 60yo M for Upper Endoscopy PMFSH Active Problems Active Problems: All Active Problems Chronic interstitial cystitis (Acute) LLQ abdominal pain (Acute) Incomplete bladder emptying (Acute) Abdominal pain (Acute) Encounter for routine adult physical exam with abnormal findings (Acute) Inguinal pain (Acute) Pelvic pain in male (Acute) Chronic prostatitis (Acute) Lower urinary tract symptoms (Acute) Urinary frequency (Acute) Dysuria (Acute) Chambers's esophagus determined by endoscopy (Acute) Prostatitis (Acute) Anemia (Acute) Microhematuria (Acute) Urinary urgency (Acute) Skin lesions (Acute) Essential hypertension (Acute) Physical exam (Acute) Screening PSA (prostate specific antigen) (Acute) Anemia (Acute) Leukopenia (Acute) High triglycerides (Acute) Dyslipidemia (Acute) Epigastric abdominal pain (Acute) Constipation (Acute) Tinea (Acute) Past Medical History Medical History Chambers's esophagus determined by endoscopy HTN (hypertension) Dyslipidemia History of pneumonia History of depression GERD (gastroesophageal reflux disease) Anxiety Family History Family History Father Lung cancer Maternal Aunt Breast cancer Maternal Aunt Breast cancer Mother CHF (congestive heart failure) Brother Heart attack HTN (hypertension) Maternal Grandfather Diabetes Brother HTN (hypertension) Family history of problems with anesthesia: No Surgical History Surgical History Hx of colonoscopy History of elbow surgery Hx of appendectomy Hx of inguinal hernia repair Hx of cholecystectomy History of Problems with Anesthesia: No Social History Social History Housing: House Are you a primary client care coordinator to a significant other at home: No Do you presently have visiting nurse or other home services: No Alcohol intake: current Alcohol intake frequency: does not drink Alcohol type: hard liquor Patient Tobacco Use Status: Current someday Tobacco user Tobacco use type: Cigarette e-Cigarette/Vaping Use: Never Used Second Hand Smoke Exposure: No service: Yes Current occupational status: employed Current occupation: [email or web address] Current occupational exposures/hazards: Yes Cognitive needs: No Hearing needs: No Vision needs: No Meds Allergies Allergy/AdvReac Type Severity Reaction Status Date / Time No Known Allergies Allergy Verified 01/30/25 09:57 [No Known Allergies*] Home Medications ?Medication ?Instructions ?Recorded ?Confirmed ?Last Taken ?Type duloxetine 40 mg capsule,delayed 40 mg PO DAILY 02/13/24 10/20/24 Unknown History release Assessment and Plan Assessment Anesthesia Assessment: Chart Reviewed Final Anesthetic Review Family History of Problems with Anesthesia: No History of Problems with Anesthesia: No
[2025-02-25 12:55] VITALS: BMI 31.8
[2025-02-25 13:11] VITALS: BP 126/85; PULSE 79; RESP 16; TEMP 36.4; O2SAT 97
[2025-02-25] MEDS: Lactated Ringers 1,000 ML 100 ML IVCONT (13:21)
--- NOTE | 2025-02-25 14:01 | MHC.SHP ---
Pre-Procedural Eval Section A - 24 Hr Update-Section A only Date of Service: 02/25/25 Section B - Complete if H&P > 30 days Chief Complaint: gerd Relevant Family History (Specify if Yes): No Relevant Social History: Tobacco Use Present Medications: see Short Stay Collaborative assessment Medical History: Significant History (Chambers's esophagus determined by endoscopy HTN (hypertension) Dyslipidemia History of pneumonia History of depression GERD (gastroesophageal reflux disease) Anxiety) History of Previous Operations: Relevant previous surgery/procedure and date(s) (Hx of colonoscopy History of elbow surgery Hx of appendectomy Hx of inguinal hernia repair Hx of cholecystectomy) Allergies: Allergies Allergy/AdvReac Type Severity Reaction Status Date / Time No Known Allergies Allergy Verified 01/30/25 09:57 [No Known Allergies*] Review of Systems Sugical H&P ROS: Negative: Constitution, Cardiovascular, Respiratory, Neurological, Psychiatric, Hem-Onc, Allergic/Immunologic, Gastrointestinal, Genitourinary, Musculoskeletal, Integumentary, Endocrine and Eyes/Ears/Nose/Throat Exam Surgical H&P Exam: Normal: HEENT, Normal: Heart, Normal: Lungs, Normal: Extremities, Normal: Abdomen, Normal: Skin and Normal: Neurological Plan Diagnosis/Plan: Unchanged I have reviewed the history and physical and performed a pertinent physical examination on my patient. No changes have occurred unless specified. Time Spent With Patient Time: Total time managing care of this patient today ____ minutes.
--- NOTE | 2025-02-25 14:31 | W.PM.OPN ---
Operative Note Operative Note Date of Service: 02/25/25 Narrative: Procedure Description: EGD Indication: barretts esophagus Anesthesia: MAC FLEXIBLE TRANSORAL UPPER GASTROINTESTINAL ENDOSCOPY UPPER ENDOSCOPY Consent: Indications for the procedure and potential complications of bleeding, perforation, reaction to medications and missed diagnosis were discussed with the patient and informed consent was obtained. Instrument: Olympus GIF H 190 J mid size upper endoscope Monitoring: Vital signs and clinical assessment, continuous EKG monitoring, Pulse oximetry, Carbon Dioxide monitoring and blood pressure monitoring were done throughout the procedure. Procedure: The patient was placed in the left lateral decubitis position and pre-procedure medications were administered and a bite block was placed. The endoscope was inserted into the mouth and advanced under direct vision to the third part of duodenum. A careful inspection was made as the upper endoscope was withdrawn including a retroflexed examination of the proximal stomach; Findings and interventions are described below. Findings: Larynx:normal Esophagus: GE junction at 40 cm, diaphragm hiatus at 42 cm, consistent with small sliding hiatal hernia . A few short tongues of salmon pink mucosa consistent with short segment barretts, bx taken as well as brushings for WATS Stomach: Patchy gastric erythema. Biopsies were obtained. Grade 2 flap valve on retroflexed examination of the cardia. Duodenum: Normal bulb and descending duodenum, Intervention: Biopsies as noted above, Impression/Findings: gastritis short segment barretts PLAN: cont with PPI
[2025-02-25 14:37] VITALS: BP 119/76; PULSE 72; RESP 17; TEMP 36.1; O2SAT 97
[2025-02-25 14:51] VITALS: BP 119/75; PULSE 73; RESP 16; TEMP 36.1; O2SAT 99
== END 2025-02-25 15:12 | disposition home or self-care (01) ==
PROVIDERS: PCP Nurse Practitioner Family; Visit Provider Internal Medicine Gastroenterology
PROC: 0DJ08ZZ Inspection of Upper Intestinal Tract, Via Natural or Artificial Opening Endoscopic (ICD-10-PCS; CPT 43235; principal; 2025-02-25 13:20)
DX: K22.70 Barrett's esophagus without dysplasia (principal); K21.9 Gastro-esophageal reflux disease without esophagitis; K29.70 Gastritis, unspecified, without bleeding; K44.9 Diaphragmatic hernia without obstruction or gangrene; I10 Essential (primary) hypertension; E78.5 Hyperlipidemia, unspecified; F41.9 Anxiety disorder, unspecified; Z79.899 Other long term (current) drug therapy; Z90.49 Acquired absence of other specified parts of digestive tract; Z98.890 Other specified postprocedural states; F17.210 Nicotine dependence, cigarettes, uncomplicated
CPT/HCPCS: 43239; 88305; 88313; 88342; J2003; J2704

== ENCOUNTER → 2025-02-25 09:48 | Outpatient (BNV) | payer BC, SELFPAY | PROVIDERS: PCP Nurse Practitioner Family; Visit Provider Internal Medicine Gastroenterology | DX: K22.70 Barrett's esophagus without dysplasia (principal); K29.70 Gastritis, unspecified, without bleeding | CPT/HCPCS: 43239 ==

== ENCOUNTER 2025-02-27 06:42 | Outpatient (REF) | payer BC, SELFPAY ==
[2025-02-27 10:20] LABS: MANUAL DIFF FLAG NO
[2025-02-27 10:33] LABS: Basophils Percent Auto 0.3 % (0-2); Eosinophils Absolute Auto 0.1 X10*3/uL (0.0-0.4); Eosinophils Percent Auto 1.7 % (0-4); Hematocrit 41.2 % (42.0-52.0); Imm Gran Abs Auto 0.01 X10*3/uL (0.00-0.03); Imm Gran Pct Auto 0.3 % (0.0-0.4); Lymphocytes Percent Auto 28.2 % (20-40); Mean Corpuscular Hemoglobin 32.6 pg (27.0-33.0); Monocytes Absolute Auto 0.3 X10*3/uL (0.1-1.2); Monocytes Percent Auto 9.2 % (2-11); Neutrophils Absolute Auto 2.1 x10*3/uL (2.0-8.3); Neutrophils Percent Auto 60.3 % (45-73); Platelet Count 218 X10*3/uL (160-400); Red Blood Count 4.29 X10*6/uL (4.60-5.80); Red Cell Distribution Width 13.3 % (11.0-16.0); White Blood Count 3.5 X10*3/uL (4.8-10.8)
[2025-02-27 10:43] LABS: Appearance Urine Clear; Color Urine Yellow; Glucose Urine UA Negative (Negative); Leukocyte Esterase Urine Negative (Negative); Nitrite Urine Negative (Negative); PH 6.5 (5.0-9.0); Specific Gravity - Urine 1.015 (1.005-1.025); Urine Blood Negative (Negative); Urine Ketones Negative (Negative); Urine Protein Negative (Neg-Trace)
[2025-02-27 10:59] LABS: Prostate Specific Antigen Scr 0.36 ng/mL (<0.05-4.0)
[2025-02-27 12:55] LABS: Alanine Aminotransferase 30 U/L (0-40); Albumin Level 4.2 g/dL (3.5-5.0); Alkaline Phosphatase 72 U/L (39-117); Anion Gap 9 (12-20); Aspartate Amino Transferase 29 U/L (5-37); Bilirubin Total 0.3 mg/dL (0.0-1.0); Blood Urea Nitrogen 13 mg/dL (9-16); Calcium 9.4 mg/dL (8.4-10.2); Carbon Dioxide 29 mmol/L (22-29); Chloride 105 mmol/L (96-108); Cholesterol 145 mg/dL (<200); Estimated Glomerular Filt Rate 54; Glucose Fasting 95 mg/dL (60-99); HDL Cholesterol 37 mg/dL (>40); LDL Cholesterol Calculated 79 mg/dL (<100); Potassium 4.4 mmol/L (3.3-5.1); Sodium 139 mmol/L (135-145); TSH reflex Free T4 1.91 uIU/mL (0.32-4.0); Total Protein 6.8 g/dL (6.5-8.0); Triglycerides 148 mg/dL (<150)
== END 2025-02-27 06:43 | disposition home or self-care (01) ==
LOC: HO.HMGCLDS 06:42
PROVIDERS: PCP Nurse Practitioner Family; Visit Provider Nurse Practitioner Family
DX: Z00.00 Encounter for general adult medical examination without abnormal findings (principal); Z12.5 Encounter for screening for malignant neoplasm of prostate
CPT/HCPCS: 36415; 80053; 80061; 81003; 84153; 84443; 85025

== ENCOUNTER 2025-03-02 09:03 | Outpatient (AMB) | payer BC, SELFPAY ==
[2025-03-02 09:14] VITALS: BP 132/80; PULSE 73; O2SAT 96; BMI 32.3
--- NOTE | 2025-03-02 09:14 | A.OFFPC_ITS ---
Vital Signs 03/02/25 09:14 Height 6 ft 1 in Weight 245 lb BMI 32.3 BP 132/80 Blood Pressure Location Rt brachial Position Sitting Pulse 73 Pulse Source Pulse Oximeter Pulse Oximetry (%) 96 Oxygen Delivery Method Room Air Intake Visit Reasons: PE Steward/Stewardess Deck Required: No Accompanied by: Self / Same As Patient Allergies No Known Allergies [No Known Allergies*] Allergy (Verified 03/02/25 10:12) Medication List - Last Reconciled 03/02/25 [facility] amitriptyline 25 mg PO BEDTIME 90 days atorvastatin 20 mg PO BEDTIME cholecalciferol (vitamin D3) 50 mcg PO DAILY docusate sodium 100 mg PO BEDTIME duloxetine 40 mg PO DAILY gabapentin 600 mg (2 x 300 mg) PO BID 30 days lisinopril 5 mg PO DAILY mirabegron ER 25 mg PO DAILY 90 days naproxen (Naprosyn) 500 mg PO Q12H PRN 30 days omeprazole 40 mg PO DAILY sennosides (senna) 8.6 mg PO BEDTIME tadalafil 5 mg PO DAILY 90 days tamsulosin 0.4 mg PO BEDTIME 90 days trimethoprim 100 mg PO DAILY 90 days Tobacco use date assessed: 10/20/24 Dental Screening Dental Screen Date: 10/20/24 HPI PE HPI Details History of Present Illness The patient is a 60-year-old male presenting for a wellness visit. He reports urinary issues related to diagnosed interstitial cystitis, for which he is followed by a urologist. There are no new urinary symptoms reported. The patient maintains regular dermatology appointments due to being bald and having fair skin. He denies chest pain, shortness of breath, abdominal pain, and gastrointestinal symptoms. Health Maintenance - Colonoscopy is up-to-date. - Regular dermatological evaluation due to baldness and fair skin. Social History Review of Systems - Genitourinary: Reports urinary issues. - Cardiovascular: Denies chest pain. - Respiratory: Denies shortness of breat h. - Gastrointestinal: Denies abdominal jarad n, blood in stool, constipation, diarrhea. Physical Exam General: Cooperative, healthy appearing, comfortable, no acute distress and well developed Orientation: Patient oriented x3 Limitations: No limitations Head: Normal to inspection Ears: Hearing grossly normal bilaterally Nose: Normal external nose present Face and sinus: Normal facial exam Eyes: Appearance normal, both eyes and all related structures Neck: Normal visual inspection and Yes full ROM Respiratory: Normal respiratory effort and able to speak in complete sentences. Clear to auscultation bilaterally Cardiovascular: Regular rate and rhythm. Normal S1 and S2 GI: Normal to inspection. Soft to palpation and nontender Skin: Scalp with some macular discolorations, faintly erythematous Neuro: Patient oriented x3 Extremities: Normal to inspection Results Plan Management of interstitial cystitis will continue under the care of urology. Reg ular dermatological checks are advised to monitor skin condition given the patient?s baldness and fair skin. The colonoscopy is up-to-date, and no immediate interventions are necessary. Ongoing monitoring of any emerging symptoms will be conducted to ensure timely management and intervention. Discussion Notes During this visit, we discussed the management and monitoring strategies for interstitial cystitis. The patient is under specialist care with urology, and the importance of maintaining appointments was highlighted. The potential dermatological issues due to fair skin were also reviewed, emphasizing regular dermatological assessments. The absence of acute medical concerns such as chest pain and gastrointestinal disturbances was confirmed, and reassurance was provided on maintaining the current health management strategy. Patient Instructions - Continue regular urology and dermatolo gy follow-ups. - Report any new or worsening symptoms. - Maintain screenings as advised. 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 HTN (hypertension) Dyslipidemia History of pneumonia History of depression GERD (gastroesophageal reflux disease) Anxiety Surgical History H/O cystoscopy Hx of colonoscopy History of elbow surgery Hx of appendectomy Hx of inguinal hernia repair Hx of cholecystectomy Family History Father Lung cancer Maternal Aunt Breast cancer Maternal Aunt Breast cancer Mother CHF (congestive heart failure) Brother Heart attack HTN (hypertension) Maternal Grandfather Diabetes Brother HTN (hypertension) Social History Housing: House Are you a primary intensive care specialist to a significant other at home: No Do you presently have visiting nurse or other home services: No Alcohol intake: current Alcohol intake frequency: holidays/special occasions only Alcohol type: hard liquor Patient Tobacco Use Status: Current everyday Tobacco user Tobacco use type: Cigarette Cigarettes Per Day: 7 e-Cigarette/Vaping Use: Never Used Second Hand Smoke Exposure: No service: Yes Current occupational status: employed Current occupation: [employer] Current occupational exposures/hazards: Yes Cognitive needs: No Hearing needs: No Vision needs: No Questionnaire PHQ-9 Over the last 2 weeks, how often have you been bothered by any of the following problems? 1. Little interest or pleasure in doing things: not at all 2. Feeling down, depressed, or hopeless: not at all 3. Trouble falling or staying asleep, or sleeping too much: not at all 4. Feeling tired or having little energy: not at all 5. Poor appetite or overeating: not at all 6. Feeling bad about yourself - or that you are a failure or have let yourself or your family down: not at all 7. Trouble concentrating on things, such as reading the newspaper or watching television: not at all 8. Moving or speaking so slowly that other people could have noticed. Or the opposite - being so fidgety or restless that you have been moving around a lot more than usual: not at all 9. Thoughts that you would be better off or of hurting yourself in some way: not at all Total score: 0 Depression Screening Interpretation: Negative Depression Screening Done: Yes 66798 - PHQ-9 Billing: Yes Source: Developed by Drs. Stefano Watson, Leilani Corrales, Karlo Barker and colleagues, with an educational gaby from [employer]. Thrive Questionnaire Date Thrive assessed: 03/02/25 I am a: Patient What is your living situation today?: I have a steady place to live Within the past 12 months, did the food you bought not last and you didn't have the money to get more?: Never true Within the past 12 months, did you worry whether your food would run out before you got money to buy more?: Never true Do you have trouble paying for medicines?: No Do you have trouble getting transportation to medical appointments?: No Do you have trouble paying your heating and electricity bill?: No Do you have trouble taking care of your child, family member or friend?: No Do you have trouble with day-to-day activities such as bathing, preparing meals, shopping, managing finances, etc.?: No Are you currently unemployed and looking for a job?: No Are you interested in more education?: No Please select the resources that you would like help with: None Currently or been in a relationship where the following occur: No concerns reported THRIVE Score: 0 AUDIT C Alcohol Use Questionnaire (AUDIT-C) 1. How often do you have a drink containing alcohol?: 2-4 times a month 2. How many drinks containing alcohol do you have on a typical day when you are drinking?: 1 or 2 3. How often do you have six or more drinks on one occasion?: Never Total Score: 2 Score Reviewed/Action Taken: Yes ELSA-7 AMB Questionnaire ELSA-7 Date ELSA - 7 assessed: 03/02/25 Feeling nervous, anxious, or on edge: 0 = Not at all Not being able to stop or control worryin = Not at all Worrying too much about different things: 0 = Not at all Trouble relaxin = Not at all Being so restless that it is hard to sit still: 0 = Not at all Becoming easily annoyed or irritable: 1 = Several days Feeling afraid as if something awful might happen: 0 = Not at all Total ELSA-7 score (0-4 normal; 5-9 mild; 10-14 moderate; 15-21 severe): 1 Source: Developed by Drs. Stefano Watson, Leilani Corrales, Karlo Barker and colleagues, with an educational gaby from [employer]. ELSA-7 Assessment Billing ELSA-7 Assessment Tool: ELSA-7 Assessment 52610 Physical exam (Primary Care) Vital Signs: Last Vital Signs Pulse 73 03/02/25 09:14 BP 132/80 03/02/25 09:14 Pulse Ox 96 03/02/25 09:14 Oxygen Delivery Method Room Air 03/02/25 09:14 BMI result Body Mass Index 32.3 Tobacco/Smoking Status: Tobacco use Status Tobacco use date assessed 10/20/24 03/02/25 09:16 Patient Tobacco Use Status Current everyday Tobacco 03/02/25 09:16 Tobacco use type Cigarette 03/02/25 09:16 e-Cigarette/Vaping Use Never Used 03/02/25 09:16 PHQ-9: PHQ-9 Score PHQ-9: Total score 0 03/02/25 09:16 Depression Screening Interpretation: Negative Thrive Assessment: Date of Thrive Assessment Date Thrive assessed 03/02/25 03/02/25 09:16 Currently or been in a relationship where the following occur: No concerns reported Coding Level of Care Code Est Pt Prev Care 40-64y(31976) Diagnoses Physical exam Z00.00 Additional Codes ELSA-7 Assessment Billing - ELSA-7 Assessment Tool: ELSA-7 Assessment 33494 ([id number]) PHQ-9 - 09407 - PHQ-9 Billing: Yes ([id number]) Assessment & Plan Assessment & Plan (1) Physical exam: Code(s): Z00.00 - Encounter for general adult medical examination without abnormal findings Category: Medical Plan .
== END 2025-03-02 10:34 | disposition home or self-care (01) ==
LOC: HO.HMCC 09:04
PROVIDERS: PCP Nurse Practitioner Family; Visit Provider Nurse Practitioner Family
DX: Z00.00 Encounter for general adult medical examination without abnormal findings (principal)

== ENCOUNTER → 2025-03-02 09:03 | Outpatient (BNVA) | payer BC, SELFPAY | PROVIDERS: PCP Nurse Practitioner Family; Visit Provider Nurse Practitioner Family | DX: Z00.00 Encounter for general adult medical examination without abnormal findings (principal); N30.10 Interstitial cystitis (chronic) without hematuria; Z13.31 Encounter for screening for depression; Z13.30 Encounter for screening examination for mental health and behavioral disorders, unspecified | CPT/HCPCS: 96127 ==

== ENCOUNTER 2025-04-21 09:37 | Outpatient (AMB) | payer BC, SELFPAY ==
[2025-04-21 09:39] VITALS: BP 126/74; PULSE 74; O2SAT 100; BMI 32.5
--- NOTE | 2025-04-21 09:39 | A.OFFPC_ITS ---
Vital Signs 04/21/25 09:39 Height 6 ft 1 in Weight 246 lb BMI 32.5 BP 126/74 Blood Pressure Location Lt brachial Position Sitting Pulse 74 Pulse Source Pulse Oximeter Pulse Oximetry (%) 100 Oxygen Delivery Method Room Air Intake Visit Reasons: 6 month follow up Allergies No Known Allergies (No Known Allergies*) Allergy (Verified 04/21/25 10:20) Medication List - Last Reconciled 04/21/25 by Harvey Owens [facility] amitriptyline 25 mg PO BEDTIME 90 days atorvastatin 20 mg PO BEDTIME cholecalciferol (vitamin D3) 50 mcg PO DAILY docusate sodium 100 mg PO BEDTIME duloxetine 40 mg PO DAILY gabapentin 600 mg (2 x 300 mg) PO BID 30 days lisinopril 5 mg PO DAILY mirabegron ER 25 mg PO DAILY 90 days naproxen (Naprosyn) 500 mg PO Q12H PRN 30 days omeprazole 40 mg PO DAILY sennosides (senna) 8.6 mg PO BEDTIME tadalafil 5 mg PO DAILY 90 days tamsulosin 0.4 mg PO BEDTIME 90 days trimethoprim 100 mg PO DAILY 90 days Tobacco use date assessed: 10/20/24 Dental Screening Dental Screen Date: 10/20/24 HPI 6 month follow up HPI Details Chief Complaint The patient presents for follow-up of hypertension. History of Present Illness The patient is a 60-year-old male presenting with hypertension. He reports that his condition is currently stable, with no recent episodes of chest pain, dyspnea, or abdominal pain. The patient also has a history of interstitial cystitis, which significantly impacts his daily life. He experiences frequent nocturia, urinating every half hour at night, which disrupts his sleep. This condition has affected his employment, leading him to quit one of his jobs due to the need for frequent bathroom access. Additionally, the patient has been diagnosed with prostatitis and is currently under the care of a urologist. He is scheduled for a second opinion with another urologist to further evaluate his interstitial cystitis and prostatitis. He is on medication to manage his prostate condition. Social History - Employment: The patient quit one of hi s jobs due to frequent need for bathroom access related to interstitial cystitis. Health Maintenance Review of Systems - Cardiovascular: Denies chest pain, ort hopnea, or syncope. - Respiratory: Denies dyspnea, cough, or wheezing. - Neurological: Reports dizziness. Denie s headaches or blurred vision. - Genitourinary: Reports frequent noctur ia, urinating every half hour at night. Physical Exam General: Cooperative, healthy appearing, comfortable, no acute distress and well developed Orientation: Patient oriented x3 Limitations: No limitations Head: Normal to inspection Ears: Hearing grossly normal bilaterally Nose: Normal external nose present Face and sinus: Normal facial exam Eyes: Appearance normal, both eyes and all related structures Neck: Normal visual inspection and Yes full ROM Respiratory: Normal respiratory effort and able to speak in complete sentences. Clear to auscultation bilaterally Cardiovascular: Regular rate and rhythm. Normal S1 and S2 GI: Normal to inspection. Soft to palpation and nontender Skin: No rashes or lesions noted Neuro: Patient oriented x3 Extremities: Normal to inspection Results Plan The patient is advised to continue monitoring his blood pressure and maintain his current medication regimen for hypertension. He is encouraged to follow up with his urologist for further evaluation and management of interstitial cystitis and prostatitis. A second opinion with another urologist is scheduled to explore additional treatment options. The patient is advised to obtain further laboratory tests in approximately two months to monitor his condition. Discussion Notes I discussed with the patient the importance of continuing his current hypertension management plan and the need for regular follow-ups with his urologist. We talked about the upcoming second opinion with another urologist to address his interstitial cystitis and prostatitis. I also recommended obtaining further laboratory tests in two months to assess his overall health status. Patient Instructions - Continue taking your blood pressure me dication as prescribed. - Follow up with your urologist as sched uled. - Attend the second opinion appointment with the new urologist. - Plan to get further lab tests in two [facility]. [facility] Medical History Barretts esophagus Chambers's esophagus determined by endoscopy HTN (hypertension) Dyslipidemia History of pneumonia History of depression GERD (gastroesophageal reflux disease) Anxiety Surgical History H/O cystoscopy Hx of colonoscopy History of elbow surgery Hx of appendectomy Hx of inguinal hernia repair Hx of cholecystectomy Family History Father Lung cancer Maternal Aunt Breast cancer Maternal Aunt Breast cancer Mother CHF (congestive heart failure) Brother Heart attack HTN (hypertension) Maternal Grandfather Diabetes Brother HTN (hypertension) Social History Housing: House Are you a primary director of managed care to a significant other at home: No Do you presently have visiting nurse or other home services: No Alcohol intake: current Alcohol intake frequency: holidays/special occasions only Alcohol type: hard liquor Patient Tobacco Use Status: Current everyday Tobacco user Tobacco use type: Cigarette Cigarettes Per Day: 7 e-Cigarette/Vaping Use: Never Used Second Hand Smoke Exposure: No service: Yes Current occupational status: employed Current occupation: [employer] Current occupational exposures/hazards: Yes Cognitive needs: No Hearing needs: No Vision needs: No Questionnaire Thrive Questionnaire Date Thrive assessed: 04/21/25 I am a: Patient What is your living situation today?: I have a steady place to live Within the past 12 months, did the food you bought not last and you didn't have the money to get more?: Never true Within the past 12 months, did you worry whether your food would run out before you got money to buy more?: Never true Do you have trouble paying for medicines?: No Do you have trouble getting transportation to medical appointments?: No Do you have trouble paying your heating and electricity bill?: No Do you have trouble taking care of your child, family member or friend?: No Do you have trouble with day-to-day activities such as bathing, preparing meals, shopping, managing finances, etc.?: No Are you currently unemployed and looking for a job?: No Are you interested in more education?: No Please select the resources that you would like help with: None Currently or been in a relationship where the following occur: No concerns reported THRIVE Score: 0 AUDIT C Alcohol Use Questionnaire (AUDIT-C) 1. How often do you have a drink containing alcohol?: 2-4 times a month 2. How many drinks containing alcohol do you have on a typical day when you are drinking?: 1 or 2 3. How often do you have six or more drinks on one occasion?: Never Total Score: 2 Score Reviewed/Action Taken: Yes ELSA-7 AMB Questionnaire ELSA-7 Date ELSA - 7 assessed: 03/02/25 Source: Developed by Drs. Stefano Watson, Leilani Corrales, Karlo rico nd colleagues, with an educational gaby from [employer]. Physical exam (Primary Care) Vital Signs: Last Vital Signs Pulse 74 04/21/25 09:39 BP 126/74 04/21/25 09:39 Pulse Ox 100 04/21/25 09:39 Oxygen Delivery Method Room Air 04/21/25 09:39 BMI result Body Mass Index 32.5 Tobacco/Smoking Status: Tobacco use Status Tobacco use date assessed 10/20/24 04/21/25 09:44 Patient Tobacco Use Status Current everyday Tobacco 04/21/25 09:44 Tobacco use type Cigarette 04/21/25 09:44 e-Cigarette/Vaping Use Never Used 04/21/25 09:44 Thrive Assessment: Date of Thrive Assessment Date Thrive assessed 04/21/25 04/21/25 09:44 Currently or been in a relationship where the following occur: No concerns reported Coding Level of Care Code Est Pt Level 3 (65570) Diagnoses Essential hypertension I10 Chronic prostatitis N41.1 Chronic interstitial cystitis N30.10 Assessment & Plan Assessment & Plan (1) Essential hypertension: Code(s): I10 - Essential (primary) hypertension Category: Medical (2) Chronic prostatitis: Code(s): N41.1 - Chronic prostatitis Category: Medical (3) Chronic interstitial cystitis: Code(s): N30.10 - Interstitial cystitis (chronic) without hematuria Category: Medical Plan . Orders: Orders Complete Blood Count Auto Diff Today I10 - Essential (primary) hypertension, N30.10 - Interstitial cystitis (chronic) without hematuria, N41.1 - Chronic prostatitis Lipid Panel Today I10 - Essential (primary) hypertension, N30.10 - Interstitial cystitis (chronic) without hematuria, N41.1 - Chronic prostatitis Comprehensive [place]. Panel Fast Today I10 - Essential (primary) hypertension, N30.10 - Interstitial cystitis (chronic) without hematuria, N41.1 - Chronic prostatitis TSH reflex Free T4 Today I10 - Essential (primary) hypertension, N30.10 - Interstitial cystitis (chronic) without hematuria, N41.1 - Chronic prostatitis UA CC w/rflx Micro + Cult Today I10 - Essential (primary) hypertension, N30.10 - Interstitial cystitis (chronic) without hematuria, N41.1 - Chronic prostatitis Medications: New ketoconazole 2% 1 appl topical BID 60 grams 0RF
== END 2025-04-21 11:14 | disposition home or self-care (01) ==
LOC: HO.HMCC 09:37
PROVIDERS: PCP Nurse Practitioner Family; Visit Provider Nurse Practitioner Family
DX: I10 Essential (primary) hypertension (principal); N41.1 Chronic prostatitis; N30.10 Interstitial cystitis (chronic) without hematuria

== ENCOUNTER 2025-08-27 06:42 | Outpatient (REF) | payer BC, SELFPAY ==
[2025-08-27 10:28] LABS: MANUAL DIFF FLAG NO
[2025-08-27 10:34] LABS: Hematocrit 40.0 % (42.0-52.0); Hemoglobin 13.6 g/dl (14.0-18.0); Imm Gran Abs Auto 0.01 X10*3/uL (0.00-0.03); Imm Gran Pct Auto 0.3 % (0.0-0.4); Lymphocytes Absolute Auto 1.1 X10*3/uL (1.2-4.9); Mean Corpuscular HGB Conc 34.0 g/dl (31.0-36.0); Mean Corpuscular Hemoglobin 32.9 pg (27.0-33.0); Mean Corpuscular Volume 96.6 fL (80.0-98.0); NRBC Abs Auto 0.000 X10*3/uL (0.0-0.012); NRBC Pct Auto 0.0 /100WBC (0.0-0.2); Platelet Count 216 X10*3/uL (160-400); Red Blood Count 4.14 X10*6/uL (4.60-5.80); White Blood Count 4.0 X10*3/uL (4.8-10.8)
[2025-08-27 10:41] LABS: Appearance Urine Clear; Glucose Urine UA Negative (Negative); PH 6.0 (5.0-9.0); Specific Gravity - Urine 1.020 (1.005-1.025); UMIC TRIGGER UACC YES
[2025-08-27 11:51] LABS: Alanine Aminotransferase 26 U/L (0-40); Albumin Level 4.3 g/dL (3.5-5.0); Alkaline Phosphatase 78 U/L (39-117); Anion Gap 11 (12-20); Aspartate Amino Transferase 35 U/L (5-37); Blood Urea Nitrogen 14 mg/dL (9-16); Calcium 8.9 mg/dL (8.4-10.2); Carbon Dioxide 25 mmol/L (22-29); Chloride 106 mmol/L (96-108); Cholesterol 153 mg/dL (<200); Estimated Glomerular Filt Rate 58; HDL Cholesterol 36 mg/dL (>40); Potassium 4.1 mmol/L (3.3-5.1); Sodium 138 mmol/L (135-145); Total Protein 6.6 g/dL (6.5-8.0); Triglycerides 182 mg/dL (<150)
== END 2025-08-27 06:43 | disposition home or self-care (01) ==
LOC: HO.HMGCLDS 06:42
PROVIDERS: PCP Nurse Practitioner Family; Visit Provider Nurse Practitioner Family
DX: N30.10 Interstitial cystitis (chronic) without hematuria (principal); N41.1 Chronic prostatitis; I10 Essential (primary) hypertension
CPT/HCPCS: 36415; 80053; 80061; 81001; 84443; 85025

== ENCOUNTER 2025-08-31 09:45 | Outpatient (AMB) | payer BC, SELFPAY ==
--- NOTE | 2025-08-31 09:51 | MHC.PC.OV ---
Vital Signs 08/31/25 09:52 Height 6 ft 1 in Weight 252 lb BMI 33.2 BP 104/68 Blood Pressure Location Lt brachial Position Sitting Respiration 16 Pulse 74 Pulse Source Pulse Oximeter Pulse Oximetry (%) 97 Oxygen Delivery Method Room Air Intake Visit Reasons: 6m follow up Compound Filler Required: No Accompanied by: Self / Same As Patient Allergies No Known Allergies (No Known Allergies*) Allergy (Verified 08/31/25 10:43) Medication List - Last Reconciled 08/31/25 by SAM Hall atorvastatin 20 mg PO BEDTIME cholecalciferol (vitamin D3) 50 mcg PO DAILY docusate sodium 100 mg PO BEDTIME duloxetine 40 mg PO DAILY gabapentin 600 mg (2 x 300 mg) PO BID 30 days lisinopril 5 mg PO DAILY mirabegron ER 25 mg PO DAILY 90 days naproxen (Naprosyn) 500 mg PO Q12H PRN 30 days omeprazole 40 mg PO DAILY sennosides (senna) 8.6 mg PO BEDTIME tadalafil 5 mg PO DAILY 90 days tamsulosin 0.4 mg PO BEDTIME 90 days Tobacco use date assessed: 08/31/25 Dental Screening Dental Screen Date: 08/31/25 Did you have a dental visit in the last 12 months?: Yes Did you have a dental problem in the last 6 months where you did not have access to dental care?: No Was dental information given to patient?: Patient has dentist HPI 6m follow up HPI Details Chief Complaint The patient presents for a 6-month generalized follow-up visit and management of interstitial cystitis. History of Present Illness The patient is a 60 year old male presenting for a 6-month generalized follow-up. His primary issue is interstitial cystitis with bladder ulcerations, which was recently confirmed via cystoscopy. He has previously undergone hydrodistension for this condition. The patient reports bladder discomfort and feels the urge to urinate. Recent lab results are noted to be stable. Social History Health Maintenance Review of Systems - General: Reports doing quite well otherwise. - Genitourinary: Reports bladder discomfort and a feeling of needing to urinate. -denies any fevers, chills, CP, SOB Physical Exam General: Cooperative, healthy appearing, comfortable, no acute distress and well developed Orientation: Patient oriented x3 Limitations: No limitations Head: Normal to inspection Ears: Hearing grossly normal bilaterally Nose: Normal external nose present Face and sinus: Normal facial exam Eyes: Appearance normal, both eyes and all related structures Neck: Normal visual inspection and Yes full ROM Respiratory: Normal respiratory effort and able to speak in complete sentences. Clear to auscultation bilaterally Cardiovascular: Regular rate and rhythm. Normal S1 and S2 GI: Normal to inspection. Soft to palpation and suprapubic discomfort with palpation in this region Skin: No rashes or lesions noted Neuro: Patient oriented x3 Extremities: Normal to inspection Results - Labs: Recent labs remain stable. - Procedures: A recent cystoscopy confirmed interstitial cystitis with bladder ulcerations. Plan Patient was informed and verbally consented to the use of an ambient scribe for clinic note documentation during this visit. 1. Interstitial Cystitis The patient is actively followed by urology for management of interstitial cystitis with bladder ulcerations. He is scheduled to start Elmiron, pending insurance coverage. Urology is also considering a future ablative procedure. Discussion Notes Patient Instructions - Continue to follow up with your urology specialist for your bladder condition. [facility] Medical History Barretts esophagus Chambers's esophagus determined by endoscopy HTN (hypertension) Dyslipidemia History of pneumonia History of depression GERD (gastroesophageal reflux disease) Anxiety Surgical History H/O cystoscopy Hx of colonoscopy History of elbow surgery Hx of appendectomy Hx of inguinal hernia repair Hx of cholecystectomy Family History Father Lung cancer Maternal Aunt Breast cancer Maternal Aunt Breast cancer Mother CHF (congestive heart failure) Brother Heart attack HTN (hypertension) Maternal Grandfather Diabetes Brother HTN (hypertension) Social History Housing: House Are you a primary child caregiver private home to a significant other at home: No Do you presently have visiting nurse or other home services: No Alcohol intake: current Alcohol intake frequency: holidays/special occasions only Alcohol type: hard liquor Patient Tobacco Use Status: Current everyday Tobacco user Tobacco use type: Cigarette Cigarettes Per Day: 7 e-Cigarette/Vaping Use: Never Used Second Hand Smoke Exposure: No service: Yes Current occupational status: employed Current occupation: [employer] Current occupational exposures/hazards: Yes Cognitive needs: No Hearing needs: No Vision needs: No Questionnaire PHQ-9 Over the last 2 weeks, how often have you been bothered by any of the following problems? 1. Little interest or pleasure in doing things: not at all 2. Feeling down, depressed, or hopeless: not at all 3. Trouble falling or staying asleep, or sleeping too much: not at all 4. Feeling tired or having little energy: not at all 5. Poor appetite or overeating: not at all 6. Feeling bad about yourself - or that you are a failure or have let yourself or your family down: not at all Source: Developed by Drs. Stefano Watson, Leilani Corrales, Karlo Barker and colleagues, with an educational gaby from [employer]. Thrive Questionnaire Date Thrive assessed: 10/13/24 I am a: Patient What is your living situation today?: I have a steady place to live Within the past 12 months, did the food you bought not last and you didn't have the money to get more?: Never true Within the past 12 months, did you worry whether your food would run out before you got money to buy more?: Never true Do you have trouble paying for medicines?: No Do you have trouble getting transportation to medical appointments?: No Do you have trouble paying your heating and electricity bill?: No Do you have trouble taking care of your child, family member or friend?: No Do you have trouble with day-to-day activities such as bathing, preparing meals, shopping, managing finances, etc.?: No Are you currently unemployed and looking for a job?: No Are you interested in more education?: No Please select the resources that you would like help with: None Currently or been in a relationship where the following occur: No concerns reported THRIVE Score: 0 ELSA-7 AMB Questionnaire ELSA-7 Date ELSA - 7 assessed: 08/31/25 Feeling nervous, anxious, or on edge: 0 = Not at all Not being able to stop or control worryin = Not at all Worrying too much about different things: 0 = Not at all Trouble relaxin = Not at all Being so restless that it is hard to sit still: 0 = Not at all Becoming easily annoyed or irritable: 0 = Not at all Feeling afraid as if something awful might happen: 0 = Not at all Total ELSA-7 score (0-4 normal; 5-9 mild; 10-14 moderate; 15-21 severe): 0 Source: Developed by Drs. Stefano Watson, Leilani Corrales, Karlo Barker and colleagues, with an educational gaby from [employer]. ELSA-7 Assessment Billing ELSA-7 Assessment Tool: ELSA-7 Assessment 19280 Physical exam (Primary Care) Vital Signs: Last Vital Signs Pulse 74 08/31/25 09:52 Resp 16 08/31/25 09:52 BP 104/68 08/31/25 09:52 Pulse Ox 97 08/31/25 09:52 Oxygen Delivery Method Room Air 08/31/25 09:52 BMI result Body Mass Index 33.2 Tobacco/Smoking Status: Tobacco use Status Tobacco use date assessed 08/31/25 08/31/25 10:00 Patient Tobacco Use Status Current everyday Tobacco 08/31/25 09:51 Tobacco use type Cigarette 08/31/25 09:51 e-Cigarette/Vaping Use Never Used 08/31/25 09:51 Thrive Assessment: Date of Thrive Assessment Date Thrive assessed 10/13/24 08/31/25 09:51 Currently or been in a relationship where the following occur: No concerns reported Coding Level of Care Code Est Pt Level 3 (05660) Diagnoses Chronic interstitial cystitis N30.10 Chronic prostatitis N41.1 Pelvic pain in male R10.2 Additional Codes ELSA-7 Assessment Billing - ELSA-7 Assessment Tool: ELSA-7 Assessment 50102 ([id number]) Assessment & Plan Assessment & Plan (1) Chronic interstitial cystitis: Comment: with ulceration Code(s): N30.10 - Interstitial cystitis (chronic) without hematuria Category: Medical (2) Chronic prostatitis: Code(s): N41.1 - Chronic prostatitis Category: Medical (3) Pelvic pain in male: Code(s): R10.2 - Pelvic and perineal pain Category: Medical Plan .
[2025-08-31 09:52] VITALS: BP 104/68; PULSE 74; RESP 16; O2SAT 97; BMI 33.2
== END 2025-08-31 11:45 | disposition home or self-care (01) ==
LOC: HO.HMCC 09:46
PROVIDERS: PCP Nurse Practitioner Family; Visit Provider Nurse Practitioner Family
DX: N30.10 Interstitial cystitis (chronic) without hematuria (principal); N41.1 Chronic prostatitis; R10.20 Pelvic and perineal pain unspecified side

== ENCOUNTER → 2025-08-31 09:45 | Outpatient (BNVA) | payer BC, SELFPAY | PROVIDERS: PCP Nurse Practitioner Family; Visit Provider Nurse Practitioner Family | DX: N30.10 Interstitial cystitis (chronic) without hematuria (principal); N41.1 Chronic prostatitis; R10.20 Pelvic and perineal pain unspecified side | CPT/HCPCS: 96127 ==